=== PATIENT | male | born 1965 | race Caucasian/White ===

== ENCOUNTER 2022-08-04 09:45 | Outpatient (OUT) | payer OTHER, SELFPAY ==
[2022-08-04 14:40] LABS: Prostate Specific Antigen Dx 3.68 ng/mL (<=4.00)
== END 2022-08-04 09:46 ==
LOC: LAB 09:48
PROVIDERS: PCP Family Medicine; Visit Provider Urology
DX: C61 Malignant neoplasm of prostate (principal)
CPT/HCPCS: 36415; 84153

== ENCOUNTER 2022-12-31 12:25 | Outpatient (OUT) | payer OTHER, SELFPAY ==
--- NOTE | 2022-12-31 12:32 | ECG_ITS ---
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
[2022-12-31 13:12] LABS: Basophils Absolute Auto 0.1 10^3/uL (0.0-0.1); Basophils Percent Auto 0.7 % (0.2-2.0); Eosinophils Absolute Auto 0.4 10^3/uL (0.0-0.7); Eosinophils Percent Auto 5.4 % (0.9-7.0); Hematocrit 40.9 % (42.0-54.0); Hemoglobin 13.6 g/dL (14.0-18.0); Immature Granulocytes Abs Auto 0.05 10^3/uL (0.00-0.03); Immature Granulocytes Pct Auto 0.6 % (0.0-0.5); Lymphocytes Absolute Auto 1.3 10^3/uL (1.2-3.8); Lymphocytes Percent Auto 15.4 % (20.5-60.0); Mean Corpuscular HGB Conc 33.3 g/dL (29.9-35.2); Mean Corpuscular Hemoglobin 28.9 pg (25.9-34.0); Mean Platelet Volume 10.5 fL (9.5-13.5); Monocytes Absolute Auto 0.8 10^3/uL (0.3-0.8); Monocytes Percent Auto 9.4 % (1.7-12.0); Neutrophils Absolute Auto 5.5 10^3/uL (1.4-6.5); Neutrophils Percent Auto 68.5 % (43.0-75.0); Platelet Count 199 10^3/uL (150-450); Red Cell Distribution Width 12.7 % (11.0-15.0); White Blood Count 8.1 10^3/uL (4.0-11.0)
--- NOTE | 2022-12-31 13:16 | XR_ITS ---
The [address] [address] Patient Name: BLACK CASTRO MRN: [id number] date: 1965 Sex: M Assigned Patient Location: [facility] Current Patient Location: [facility] Accession/Order Number: [id number] Exam Date: 12/31/2022 13:10 Report Date: 12/31/2022 13:45 At the request of: LORNA OLIVIA Procedure: XR chest 2V EXAM: XR chest 2V HISTORY: Preop exam COMPARISON: None. TECHNIQUE: PA and lateral views of the chest. FINDINGS: The cardiomediastinal silhouette is normal. No focal consolidation is identified. There is no pneumothorax. No pleural effusion is noted. The osseous structures are intact. XR/XR chest 2V IMPRESSION: No acute cardiopulmonary process. Electronically authenticated by: KRIS CHAUHAN Date: 12/31/2022 13:45
[2022-12-31 13:18] LABS: Anion Gap 9.5; Calcium 9.3 mg/dL (8.5-10.1); Carbon Dioxide 32.3 mmol/L (21.0-32.0); Chloride 98 mmol/L (98-107); Estimated GFR (African America >60 (>=60); Estimated GFR (Non-African Ame >60 (>=60); Glucose 101 mg/dL (74-106); Potassium 3.8 mmol/L (3.5-5.1); Sodium 136 mmol/L (136-145)
--- NOTE | 2022-12-31 13:20 | PM.PRESUREVA ---
History of Present Illness History of Present Illness Chief complaint: elevated psa prostate cancer Narrative: Patient presents for preadmission testing. Patient reports a history of prostate cancer and elevated PSA. He does admit to nocturia and intermittent urgency with urination. He denies abdominal pain dysuria, hematuria, fever, or any other complaints. Review of Systems ROS Narrative REVIEW OF SYSTEMS: Negative except as stated in HPI, ten or more systems reviewed. Constitutional: No fever , chills, weakness ENT: No sore throat or epistaxis Cardiovascular: No edema, chest pain, palpitations, or activity intolerance Respiratory: No shortness of breath, cough, or wheezing Musculoskeletal: No joint pain or swelling Gastrointestinal: No abdominal pain, constipation, diarrhea, or vomiting Genitourinary: No dysuria or hematuria Neurological: No numbness, tingling, weakness, or headache Psychiatric: No mood changes PFSH PFSH Medical History (Updated 12/31/22 @ 13:19 by Sun Allred NP) Arthritis ?M19.90 - Unspecified osteoarthritis, unspecified site (ICD-10) Coronary artery disease ?I25.10 - Atherosclerotic heart disease of [place] coronary artery without angina pectoris (ICD-10) COVID-19 (~03/2021) ?U07.1 - COVID-19 (ICD-10) Elevated PSA ?R97.20 - Elevated prostate specific antigen [PSA] (ICD-10) High cholesterol ?E78.00 - Pure hypercholesterolemia, unspecified (ICD-10) Hydrocele ?N43.3 - Hydrocele, unspecified (ICD-10) Hypertension ?I10 - Essential (primary) hypertension (ICD-10) Myocardial infarction (~2010) ?I21.9 - Acute myocardial infarction, unspecified (ICD-10) Prostate cancer ?C61 - Malignant neoplasm of prostate (ICD-10) Surgical History (Updated 12/31/22 @ 13:19 by Sun Allred NP) H/O arthroscopy of shoulder (12/03/14) ?Z98.890 - Other specified postprocedural states (ICD-10) H/O cardiac catheterization ?Z98.890 - Other specified postprocedural states (ICD-10) H/O prostate biopsy (11/27/21) ?Z98.890 - Other specified postprocedural states (ICD-10) History of hernia repair ?Z98.890 - Other specified postprocedural states (ICD-10) ?Z87.19 - Personal history of other diseases of the digestive system (ICD-10) History of hydrocelectomy (09/13/14) ?Z98.890 - Other specified postprocedural states (ICD-10) S/P arterial stent ?Z95.9 - Presence of cardiac and vascular implant and graft, unspecified (ICD-10) Family History (Updated 12/31/22 @ 13:07 by Sun Allred NP) Other CAD (coronary artery disease) Dementia Family history of cancer Family history of myocardial infarction Social History (Updated 12/31/22 @ 13:19 by Sun Allred NP) Within the past year, how often did you have a drink containing alcohol: 2-3 times a week Smoking status: Never smoker Meds Home Medications and Allergies Home Medications Medication Instructions Recorded Confirmed Type aspirin 81 mg tablet,delayed 81 mg PO DAILY 12/31/22 12/31/22 History release (Adult Aspirin Regimen) atorvastatin 40 mg tablet 40 mg PO DAILY 12/31/22 12/31/22 History losartan 25 mg tablet 25 mg PO DAILY 12/31/22 12/31/22 History metoprolol tartrate 25 mg tablet 25 mg PO BID 12/31/22 12/31/22 History Allergies Allergy/AdvReac Type Severity Reaction Status Date / Time No Known Drug Allergies Allergy Verified 12/31/22 12:44 Exam Narrative Exam Narrative: Constitutional: Awake, alert, comfortable, well-appearing, nontoxic, interactive, vital signs as charted Head: Normocephalic, atraumatic Neck: Supple, normal appearance, normal range of motion, no meningeal signs, no lymphadenopathy Respiratory: No respiratory distress, breath sounds clear Cardiovascular: Regular rate and rhythm, strong and regular heart tones Abdomen: Nontender, normal bowel sounds, soft, no CVA tenderness Musculoskeletal: Normal gait, no swelling or edema Skin: No rashes or induration, no lesions, only visible skin inspected Neuro: No neurological deficits, normal sensation Psychiatric: Oriented ?3, normal affect Assessment and Plan Assessment and Plan (1) Elevated PSA: (2) Prostate cancer: Plan TRUS biopsy scheduled with Dr. Arvizu 01/14/2023.
[2022-12-31 13:27] LABS: INR 1.02; Partial Thromboplastin Time 29.7 sec (22.3-36.2); Prothrombin Time 10.8 sec (9.0-11.6)
== END 2022-12-31 12:26 | disposition home or self-care (01) ==
LOC: PST 12:26
PROVIDERS: PCP Family Medicine; Visit Provider Urology
DX: Z01.812 Encounter for preprocedural laboratory examination (principal); Z01.810 Encounter for preprocedural cardiovascular examination; C61 Malignant neoplasm of prostate; R97.20 Elevated prostate specific antigen [PSA]; E78.5 Hyperlipidemia, unspecified; I10 Essential (primary) hypertension; Z79.01 Long term (current) use of anticoagulants; I25.10 Atherosclerotic heart disease of native coronary artery without angina pectoris; I25.2 Old myocardial infarction
CPT/HCPCS: 71046; 80048; 85025; 85610; 85730; 93005; G0463

== ENCOUNTER 2023-01-14 06:59 | Day surgery (SDC) | payer OTHER, SELFPAY ==
[2022-12-31 13:04] VITALS: BP 130/80; PULSE 58; RESP 16; TEMP 36.2; O2SAT 97; BMI 27.6
[2023-01-14 07:13] VITALS: BP 131/75; PULSE 72; RESP 16; TEMP 36.2; O2SAT 95; BMI 27.0
[2023-01-14] MEDS: LACTATED RINGER'S SOLUTION 1,000 ML 50 ML IV (07:22)
[2023-01-14] MEDS: CEFAZOLIN SODIUM/DEXTROSE,ISO 2 GM/50 ML PIGGYBACK IV (07:23)
--- NOTE | 2023-01-14 07:42 | US_ITS ---
The [address] [address] Patient Name: BLACK CASTRO MRN: [id number] date: 1965 Sex: M Assigned Patient Location: [facility] Current Patient Location: Accession/Order Number: [id number] Exam Date: 01/14/2023 08:10 Report Date: 01/14/2023 09:48 At the request of: LORNA ARVIZU Procedure: US prostate EXAMINATION: US prostate HISTORY: Elevated PSA, TRUS BX COMPARISON: No relevant comparison available. TECHNIQUE: Ultrasound exam for the prostate with an endorectal transducer was performed utilizing real-time and color duplex Doppler sonography. FINDINGS: This biopsies was performed by Dr. Arvizu. I was not present. The prostate gland is mildly enlarged in size lobular contour measuring 4.1 x 2.8 x 4.7 cm. Multiple areas of punctate hyperechogenicity likely representing calcification A needle is seen traversing multiple portions of the prostate gland US/US prostate IMPRESSION: Images from ultrasound-guided prostate biopsy Electronically authenticated by: NELLIE CHEUNG Date: 01/14/2023 09:48
[2023-01-14] MEDS: GENTAMICIN SULFATE 120 MG in 0.9 % SODIUM CHLORIDE 100 ML 206 MG IV (08:06)
[2023-01-14] MEDS: LIDOCAINE 2% JELLY 20 ML UR (08:19)
[2023-01-14 08:28] VITALS: BP 91/51; PULSE 65; RESP 14; TEMP 36.2; O2SAT 95
--- NOTE | 2023-01-14 08:36 | P.URON_ITS ---
Urology Surgery Operative Note Operative Note Procedure Date: 01/14/23 Time Out Performed: yes Pre-op Diagnosis: history of prostate cancer; active surveillance. Rising PSA. Post-op Diagnosis: same as pre-op Procedures performed: #1. Transrectal ultrasound of the prostate. #2. Prostate needle biopsies Anesthesia: MAC and local Primary Surgeon: Jaspreet Arvizu Complications: none Estimated blood loss (mL): 5 Findings: no hypoechoic areas. Specimens: 16 satisfactory cores. Indications for Procedures: this gentleman has a history of prostate cancer [place] score of 3+3 = 6 in 3 cores. He has been in active surveillance. Over the last year his PSA has risen up to 3.6 from 1.76 a couple years ago. He now presents for repeat prostate ultrasound and biopsy. He has signed an informed consent for this procedure after all risks were explained. Some of these include bleeding, infection, sepsis and anesthesia to name a few. Detailed description of Procedure: patient was brought to the operating room and placed on the operating room table in the supine position. He was rotated in the left lateral decubitus position. Timeout was done by all parties in the room. We all agreed upon the patient's identification and the planned procedures for this patient. Mac anesthesia was then administered. 2 percent lidocaine jelly was passed per rectum. The u ltrasound probe was passed per rectum and the prostate was scanned in the transverse and longitudinal views. The volume was calculated to be 28 g. There were no hypoechoic areas nor any calcifications noted. While in the sagittal view we began taking biopsies from the left base going towards the apex. We divided it up into 4 levels and from each level took 2 biopsies. A similar maneuver was done on the right side. At the end of the procedure we had 16 satisfactory cores. The probe was removed. He was then transferred to PACU in stable condition. He has been instructed to continue his course of quinolone antibiotics.
[2023-01-14 08:43] VITALS: BP 98/59; PULSE 56; RESP 16; O2SAT 94
[2023-01-14 08:57] VITALS: BP 106/78; PULSE 65; RESP 16; O2SAT 96
== END 2023-01-14 08:58 | disposition home or self-care (01) ==
PROVIDERS: PCP Family Medicine; Visit Provider Urology
PROC: (CPT 55700; principal; 2023-01-14 08:00)
DX: R97.20 Elevated prostate specific antigen [PSA] (principal); C61 Malignant neoplasm of prostate; E78.5 Hyperlipidemia, unspecified; I10 Essential (primary) hypertension; Z79.01 Long term (current) use of anticoagulants; I25.10 Atherosclerotic heart disease of native coronary artery without angina pectoris; I25.2 Old myocardial infarction; Z95.5 Presence of coronary angioplasty implant and graft; Z79.82 Long term (current) use of aspirin; N40.1 Benign prostatic hyperplasia with lower urinary tract symptoms; N52.9 Male erectile dysfunction, unspecified; R35.1 Nocturia; R39.15 Urgency of urination; N39.43 Post-void dribbling; Z80.0 Family history of malignant neoplasm of digestive organs
CPT/HCPCS: 55700; 36415; 76872; 88305; 88344; J2704

== ENCOUNTER 2023-07-30 14:44 | Outpatient (OUT) | payer OTHER, SELFPAY ==
--- OUTSIDE RECORDS SUMMARY | 2023-07-30 14:59 | XMS_ITS ---
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 Cycling Instructor Name Role Phone Bladimir Chawla Primary Care Physician MD Jaspreet Arvizu Attending Provider MD Bladimir Chawla Primary Care Provider [phone] SHANNON, DR ANDERSON Admitting Unavailable MOALONA, DR ANDERSON Attending Unavailable HOY, DR DE LEON Primary Care Unavailable SHANNON, DR ANDERSON Consulting Unavailable ARVIZU, DR ROTHMAN Admitting Unavailable ARVIZU, DR ROTHMAN Attending Unavailable HOY, DR DE LEON Primary Care Unavailable CORWIN, DR ROTHMAN Consulting Unavailable CORWIN, DR ROTHMAN Admitting Unavailable ARVIZU, DR ROTHMAN Attending Unavailable HOY, DR DE LEON Primary Care Unavailable ARVIZU, DR ROTHMAN Consulting Unavailable CORWIN, DR ROTHMAN Admitting Unavailable ARVIZU, DR ROTHMAN Attending Unavailable HOY, DR DE LEON Primary Care Unavailable CORWIN, DR ROTHMAN Consulting Unavailable JONATAN, DR NELLIE Grande Consulting Unavailable ARVIZU, DR ROTHMAN Admitting Unavailable ARVIZU, DR ROTHMAN Attending Unavailable HOY, DR DE LEON Primary Care Unavailable ARVIZU, DR ROTHMAN Consulting Unavailable SHARP, CAITLIN Consulting Unavailable GEMBUS, MARTY Consulting Unavailable GLENDA ARANA Admitting Unavailable GLENDA ARANA Attending Unavailable DENTON, DR DE LEON Primary Care Unavailable SHANNON, JUSTIN Attending Unavailable GLENDA ARANA Attending Unavailable Jaspreet ARVIZU Attending Unavailable Jaspreet ARVIZU Attending Unavailable Jaspreet ARVIZU Attending Unavailable Jaspreet ARVIZU Attending Unavailable Jaspreet ARVIZU Attending Unavailable Encounters Encounter Date Encounter Type Care Provider Facility Start: 08-02-2023 ambulatory Jaspreet Raoi ty:[facility] Start: 01-29-2023 End: 01-30-2023 ambulatory Jaspreet ARVIZU Facility:[facility] Start: 01-29-2023 End: 01-29-2023 Patient encounter procedure Jaspreet ARVIUZ [facility] Start: 01-14-2023 End: 01-15-2023 ambulatory Jaspreet ARVIZU Facility:CD:[id number] Start: 01-06-2023 End: 01-06-2023 ambulatory [facility] Start: 12-08-2022 End: 01-06-2023 Pre-admission assessment Jaspreet ARVIZU [facility] Start: 08-10-2022 End: 08-11-2022 ambulatory Jaspreet ARVIZU Facility:[facility] Start: 04-10-2022 End: 04-11-2022 ambulatory Jaspreet ARVIZU Facility:[facility] Start: 04-10-2022 End: 04-10-2022 Patient encounter procedure Jaspreet ARVIZU [facility] Start: 04-06-2022 End: 04-07-[address] JASPREET ARVIZU Facility:[facility] Start: 01-30-2022 End: 01-31-[address] JUSTIN ORTEGA Facility:[facility] Start: 01-30-2022 End: 01-30-2022 ambulatory [facility] Start: 12-05-2021 End: 12-05-2021 Patient encounter procedure Jaspreet ARVIZU [facility] Start: 11-27-2021 Encounter for preprocedural cardiovascular examination DR JASPREET ARVIZU [facility] Start: 11-27-2021 Encounter for preprocedural laboratory examination DR JASPREET ARVIZU [facility] Start: 11-27-2021 Encounter for preprocedural respiratory examination DR JASPREET ARVIZU [facility] Start: 11-27-2021 End: 11-27-[address] JASPREET ARVIZU Facility:[facility] Start: 11-25-2021 End: 11-26-[address] JASPREET ARVIZU Facility:[facility] Start: 11-25-2021 End: 11-26-2021 Encounter for preprocedural laboratory examination DR JASPREET ARVIZU Facility:[facility] Start: 10-29-2021 End: 11-26-2021 Pre-admission assessment Jaspreet ARVIZU [facility] Start: 10-22-2021 End: 10-22-2021 Patient encounter procedure MD Jaspreet Arvizu Work Phone: [facility] [place] Start: 10-03-2021 End: 10-03-2021 Patient encounter procedure Jaspreet ARVIZU [facility] Start: 09-29-2021 End: 09-30-[address] JASPREET ARVIZU Facility:[facility] Start: 09-12-2021 ambulatory GLENDA ARANA Facility :[facility] Immunizations Immunization Date Immunization Notes Care Provider Fa maggi 07-02-2020 SARS-CoV-2 (COVID-19 ) Ad26 vaccine, recombinant Jaspreet ARVIZU [facility] NEGATED: Highlighted row has not occurred!04-22-2020 influenza virus vaccine, unspecified formulation Jaspreet ARVIZU [facility] Medications Current Medications Medication Drug Class(es) Dates Sig (Normalized) Sig (Original) acetaminophen 325 mg / HYDROcodone bitartrate 7.5 mg oral tablet (3 sources) Opioid Agonist Start: 12-08-2022 take 1 tablet by mouth once Bowden 325 mg-7.5 mg oral tablet 1 tab(s), Oral, Once, 1 tab(s), Refill(s) 0, Take 1 hour prior to procedure, [facility], 184, cm, 08/10/22 11:29:00 EDT, Height/Length Dosing, 88, kg, 08/10/22 11:29:00 EDT, Weight Dosing Start Date: 12/08/22 Status: Ordered Start: 10-30-2021 take 1 tablet by mouth once No rco 325 mg-7.5 mg oral tablet 1 tab(s), Oral, Once, 1 tab(s), Refill(s) 0, Take 1 hour prior to procedure. Don't drive or operate machinery while taking., [facility], 184, cm, 10/03/21 10:02:00 EDT, Height/Length Dosing, 84, kg, 10/03/21 10:02:00 EDT, Weight Dosing Start Date: 10/30/21 Status: Ordered Aspirin (6 sources) Platelet Aggregation Inhibitor, Nonsteroidal Anti-inflammatory Drug Start: 04-19-2019 aspirin 81 mg, Ch ewed, Daily, Refills(s) 0, Blood Thinner Start Date: 04/19/19 Status: Ordered atorvastatin (7 sources) HMG-CoA Reductase Inhibitor Start: 01-29-2023 AT ORVASTATIN CALCIUM 40 MG TABLET ATORVASTATIN CALCIUM 40 MG TABLET Start Date: 01/29/23 Status: Ordered Start: 04-19-2019 take 40 mg by mouth once daily Lipitor 40 mg, Oral, Daily, Refills(s) 0, High cholesterol Start Date: 04/19/19 Status: Ordered Bee Pollen (6 sources) Start: 04-15-2020 take 1 capsule by mouth once daily Bee Pollen Bee Pollen, 1 capsule, Oral, Daily, Prophylaxis Start Date: 04/15/20 Status: Ordered losartan potassium 25 mg oral tablet (6 sources) Angiotensin 2 Receptor Nagi Start: 10-03-2021 losartan 25 mg Tab Refills(s) 0 Start Date: 10/03/21 Status: Ordered Metoprolol (9 sources) beta-Adrenergic Nagi Start: 04-10-2022 METOPROLOL TARTRATE 25 MG TABLET METOPROLOL TARTRATE 25 MG TABLET Start Date: 04/10/22 Status: Ordered Start: 04-19-2019 take 25 mg by mouth twice philip y Lopressor 25 mg, Oral, BID, Refills(s) 0, High blood pressure Start Date: 04/19/19 Status: Ordered Misc Medication (3 sources) Start: 04-10-2022 Misc Medication Start Date: 04/10/22 Status: Ordered Multivitamin, Therapeutic w/ Minerals (6 sources) Start: 04-15-2020 take 1 tablet by mouth once daily Multivitamin, Therapeutic w/ Minerals 1 tab(s), Oral, Daily, Prophylaxis Start Date: 04/15/20 Status: Ordered nitroglycerin 0.4 mg sublingual tablet (1 source) Nitrate Vasodilator Start: 01-29-2023 nitroglycerin 0.4 mg sublingual Tab 0.4 mg = 1 tab(s), SubLingual, q5min, PRN for chest pain, # 100 tab(s), Refills(s) 0 Start Date: 01/29/23 Status: Ordered Shark cartilage extract (6 sources) Start: 04-15-2020 take 1 tablet by mouth once daily Shark Cartilage Shark Cartilage, 1 Tablet, Oral, Daily, Prophylaxis Start Date: 04/15/20 Status: Ordered Vitamin C 500 mg Tab (6 sources) Start: 04-15-2020 take 1 tablet by mouth once daily Vitamin C 500 mg Tab 500 mg = 1 tab(s), Oral, Daily, Prophylaxis Start Date: 04/15/20 Status: Ordered zinc gluconate 50 mg oral tablet (6 sources) Start: 04-15-2020 take 1 tablet by mouth once daily zinc gluconate 50 mg oral tablet = 1 tab(s), Oral, Daily, Prophylaxis Start Date: 04/15/20 Status: Ordered Completed/Discontinued Medications Medication Drug Class(es) Dates Sig (Normalized) Sig (Original) tadalafil 10 mg oral tablet (6 sources) Phosphodiesterase 5 Inhibitor Start: 10-20-2022 take 2 tablets by mouth every twenty-four hours tadalafil 10 mg Tab 10 mg = 1 tab(s), Oral, As Directed, PRN for erectile dysfunction, Take 1 tab by mouth 1 hour prior to sexual activity as needed. Don't exceed 2 tabs in a 24 hour period., # 30 tab(s), Refills(s) 5, Pharmacy: [id number], 184, cm, 08/10/22 11:29:00 EDT, Height/Length Dosing, 88, kg, 08/10/22 11:29:00 EDT, Weight Dosing Start Date: 10/20/22 Status: Ordered Start: 12-09-2021 take 2 tablets by mo [facility] every twenty-four hours tadalafil 10 mg Tab 10 mg = 1 tab(s), Oral, As Directed, PRN for erectile dysfunction, Take 1 tab by mouth 1 hour prior to sexual activity as needed. Don't exceed 2 tabs in a 24 hour period., # 30 tab(s), Refills(s) 5, Pharmacy: [id number], 184, , 12/05/21... Start Date: 12/09/21 Status: Ordered Start: 09-23-2021 take 2 tablets by mo uth every twenty-four hours tadalafil 10 mg Tab 10 mg = 1 tab(s), Oral, As Directed, PRN for erectile dysfunction, Take 1 tab by mouth 1 hour prior to sexual activity as needed. Don't exceed 2 tabs in a 24 hour period., # 30 tab(s), Refills(s) 5, Pharmacy: [id number], 184, , 04/22/20... Start Date: 09/23/21 Status: Ordered Payers Date Payer Category Payer Unknown [id number] 2.16.84 [id number] 1965 Unknown [id number] 2.16.84 [id number] 1965 Unknown [id number] 2.16.84 [id number] 1965 Unknown [id number] 2.16.84 [id number] 1965 Unknown [id number] 2.16.84 [id number] 1965 Unknown [id number] 2.16.84 [id number] 1965 Unknown [id number] 2.16.8 [id number] 1965 Unknown [id number] 2.16.8 [id number] 1965 Unknown [id number] 2.16.8 [id number] 1965 Unknown [id number] 2.16.8 [id number] 1965 Unknown [id number] 2.16.8 [id number] 1961 Self-pay 1961 Unknown [id number] Problems Active Problems Problem Classification Problem Date Documented Da te Episodic/Chronic Acute myocardial infarction (6 sources) Myocardial infarction 04-19-2019 Chronic Cancer of prostate (11 sources) Malignant neoplasm of prostate; Translations: [Malignant tumor of prostate] Onset: 12-05-2021 Chronic Cardiac dysrhythmias (2 sources) Palpitations; Translations: [Palpitations] Onset: 01-06-2023 Episodic Coronary atherosclerosis and other heart disease (10 sources) Coronary arteriosclerosis; Translations: [Old myocardial infarction] Onset: 12-03-2021 01-31-2020 Chronic Disorders of lipid metabolism (13 sources) Hyperlipidemia; Translations: [Mixed hyperlipidemia] Onset: 10-22-2021 04-19-2019 Chronic Essential hypertension (9 sources) Hypertensive disorder; Translations: [Essential (primary) hypertension] Onset: 12-03-2021 04-19-2019 Chronic Genitourinary symptoms and ill-defined conditions (7 sources) Post-micturition incontinence ; Translations: [Post-void dribbling] Onset: 12-03-2021 04-24-2019 Chronic Genitourinary symptoms and ill-defined conditions (20 sources) Increased frequency of urination; Translations: [Nocturia] Onset: 12-03-2021 04-24-2019 Episodic Hyperplasia of prostate (20 sources) Benign prostatic hypertrophy with outflow obstruction; Translations: [Benign prostatic hyperplasia with lower urinary tract symptoms] Onset: 09-29-2021 Chronic Hypertension with complications and secondary hypertension (2 sources) Hypertensive heart disease without heart failure; Translations: [Hypertensive heart disease without heart failure] Onset: 01-06-2023 Chronic Other male genital disorders (5 sources) Male erectile dysfunction, unspecified; Translations: [Erectile dysfunction] Onset: 10-03-2021 Chronic Other male genital disorders (6 sources) Impotence 04-24-2019 Chronic Other male genital disorders (6 sources) Disorder of male genital organ 04-19-2019 Episodic Other screening for suspected conditions (not mental disorders or infectious disease) (11 sources) Raised prostate specific antigen; Translations: [Elevated prostate specific antigen [PSA]] Onset: 10-03-2021 Episodic Residual codes; unclassified (6 sources) Family history of cancer of colon 03-29-2020 Episodic Unclassified (1 source) CONTACT W/AND (SUSP) EXPOS COVID-19; Translations: [CONTACT W/AND (SUSP) EXPOS COVID-19] Onset: 11-27-2021 Past or Other Problems Problem Classification Problem Date Documented Da te Episodic/Chronic Coronary atherosclerosis and other heart disease (3 sources) Presence of coronary angioplasty implant and graft; Translations: [PRESENCE COR ANGPLSTY IMPLANT AND GRAFT] Onset: 12-03-2021 Episodic Other aftercare (1 source) 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; Translations: [FCI CURRNT USE ANTICOAGULANTS] Onset: 12-03-2021 Episodic Other aftercare (1 source) 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; Translations: [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] Onset: 12-03-2021 Episodic Other aftercare (1 source) Other nursing home (current) drug therapy; Translations: [OTH FCI CURRENT DRUG THERAPY] Onset: 12-03-2021 Episodic Other male genital disorders (1 source) Disorder of prostate, unspecified; Translations: [DISORDER OF PROSTATE UNSPECIFIED] Onset: 12-03-2021 Episodic Procedures Date Procedure Procedure Detail Performing Clinician Start: 01-14-2023 Transrectal biopsy o f prostate using ultrasound guidance Jaspreet ARVIZU Start: 04-06-[address] JUSTIN ORTEGA Comment on above: Performed By: #### P SAD #### [facility] [address] [place] [address] Dr. Betzy Olivera Start: 11-27-2021 MRI-US fusion guided transperineal biopsy of prostate Jaspreet ARVIZU Start: 11-27-2021 Ultrasonography by transrectal approach Jaspreet ARVIZU Start: 10-22-2021 MR prostate wo/w con MD Jaspreet Arvizu Work Phone: Start: 09-29-[address] JUSTIN ORTEGA Comment on above: Performed By: #### P SAD #### [facility] [address] [place] [address] Dr. Betzy Olivera Start: 04-15-2020 Colonoscopy Jaspreet DEAN Comment on above: removal of 2 colon p olyps Start: 12-03-2014 Repair of musculoten dinous cuff of shoulder Jaspreet ARVIZU Comment on above: right Start: 09-13-2014 Hydrocelectomy Jaspreet ARVIZU Comment on above: left Start: 09-13-2014 Vasectomy Jaspreet DEAN Start: 04-11-2008 Repair of left ingui nal hernia Jaspreet ARVIZU Placement of stent i n cardiac conduit Jaspreet ARVIZU Results Test Name Value Interpretation Reference Range Facil ity Ambulatory Visit Summaryon 1 04-01-2022 Ambulatory Visit Summary BLACK YATES :1965 Visit Date:01/29/2023 Ambulatory Visit Instructions Your Diagnosis Prostate cancer BPH with urinary obstruction Impotence Your Care Team Attending Physician - CORWIN GUILLORY, Jaspreet Bhatt Primary Care Physician - Bladimir Chawla MD This Is Your Medications List Contact prescribing physician if questions or concerns Misc Prescription (ATORVASTATIN CALCIUM 40 MG TABLET) Misc Prescription (METOPROLOL TARTRATE 25 MG TABLET) Non-Formulary Medication (Bee Pollen) Non-Formulary Medication (Misc Medication) Non-Formulary Medication (Shark Cartilage) ascorbic acid (Vitamin C 500 mg Tab) aspirin atorvastatin (Lipitor) losartan (losartan 25 mg Tab) metoprolol (Lopressor) multivitamin with minerals (Multivitamin, Therapeutic w/ Minerals) nitroglycerin (nitroglycerin 0.4 mg sublingual Tab) tadalafil (tadalafil 10 mg Tab) zinc gluconate (zinc gluconate 50 mg oral tablet) Procedures Performed Transrectal biopsy of prostate using ultrasound guidance (01/14/2023), MRI-US fusion guided transperineal biopsy of prostate (11/27/2021), Colonoscopy (04/15/2020), Rotator cuff repair (12/03/2014), Hydrocelectomy (09/13/2014), Vasectomy (09/13/2014), Repair of left inguinal hernia (04/11/2008), Placement of stent in cardiac conduit. Discharge Vitals Heart Rate (Peripheral) 80 Respiratory Rate 16 Blood Pressure 127/72 Height 184 cm Height 72 in Weight 91 kg Weight 200.2 lb BMI 26.88 What to do next You Need to Schedule the Following Appointments Follow Up with CORWIN GUILLORY, SACHI Ac When: Where: [address] [place] [address]- Medications What How Much When Instructions Unchanged ascorbic acid (Vitamin C 500 mg Tab) 1 Tablets By Mouth Every day Contact prescribing physician if questions or concerns Unchanged aspirin 81 Milligram Chewed Every day Contact prescribing physician if questions or concerns Unchanged atorvastatin (Lipitor) 40 Milligram By Mouth Every day Contact prescribing physician if questions or concerns Unchanged losartan (losartan 25 mg Tab) Contact prescribing physician if questions or concerns Unchanged metoprolol (Lopressor) 25 Milligram By Mouth 2 times a day Contact prescribing physician if questions or concerns Unchanged Misc Prescription (ATORVASTATIN CALCIUM 40 MG TABLET) 0 Contact prescribing physician if questions or concerns Unchanged Misc Prescription (METOPROLOL TARTRATE 25 MG TABLET) 0 Contact prescribing physician if questions or concerns Unchanged multivitamin with minerals (Multivitamin, Therapeutic w/ Minerals) 1 Tablets By Mouth Every day Contact prescribing physician if questions or concerns Unchanged nitroglycerin (nitroglycerin 0.4 mg sublingual Tab) 1 Tablets Sublingual Every 5 minutes as needed for for chest pain Contact prescribing physician if questions or concerns Unchanged Non-Formulary Medication (Bee Pollen) 1 capsule By Mouth Every day Prophylaxis Contact prescribing physician if questions or concerns Unchanged Non-Formulary Medication (Misc Medication) Contact prescribing physician if questions or concerns Unchanged Non-Formulary Medication (Shark Cartilage) 1 Tablet By Mouth Every day Prophylaxis Contact prescribing physician if questions or concerns Unchanged tadalafil (tadalafil 10 mg Tab) 1 Tablets By Mouth As Directed as needed for for erectile dysfunction Take 1 tab by mouth 1 hour prior to sexual activity as needed. Don't exceed 2 tabs in a 24 hour period. Contact prescribing physician if questions or concerns Unchanged zinc gluconate (zinc gluconate 50 mg oral tablet) 1 Tablets By Mouth Every day Contact prescribing physician if questions or concerns Allergies No Known Allergies Problems Ongoing - Any problem that you are currently receiving treatment for. BPH with urinary obstruction CAD (coronary artery disease) Elevated PSA Family history of colon cancer requiring screening colonoscopy Hydrocele Hyperlipidemia Hypertension Impotence Myocardial infarct Nocturia Post-void dribbling Prostate cancer Urinary frequency Weak urinary stream Patient Survey You may receive a survey via text or e-mail asking about your office visit. Please share your experience with us by completing your survey. We appreciate your feedback and thank you for choosing us for your care. Education Materials Prostate Cancer The prostate is a small gland that produces fluid that makes up semen (seminal fluid). It is located below the bladder in men, in front of the rectum. Prostate cancer is the abnormal growth of cells in the prostate gland. What are the causes? The exact cause of this condition is not known. What increases the risk? You are more likely to develop this condition if: ? You are 65 years of age or older. ? You have a family history of prostate cancer. ? You have a family history of breast and ovarian cancer (more content not included)... Normal [facility] Patient Educationon 01-30-20 Patient Education Oncology Prostate Cancer The prostate is a small gland that produces fluid that makes up semen (seminal fluid). It is located below the bladder in men, in front of the rectum. Prostate cancer is the abnormal growth of cells in the prostate gland. What are the causes? The exact cause of this condition is not known. What increases the risk? You are more likely to develop this condition if: ? You are 65 years of age or older. ? You have a family history of prostate cancer. ? You have a family history of breast and ovarian cancer. ? You have genes that are passed from parent to child (inherited), such as BRCA1 and BRCA2. ? You have Narayan syndrome. men and men of descent are diagnosed with prostate cancer at higher rates than other men. The reasons for this are not well understood and are likely due to a combination of genetic and environmental factors. What are the signs or symptoms? Symptoms of this condition include: ? Problems with urination. This may include: ? A weak or interrupted flow of urine. ? Trouble starting or stopping urination. ? Trouble emptying the bladder all the way. ? The need to urinate more often, especially at night. ? Blood in urine or semen. ? Persistent pain or discomfort in the lower back, lower abdomen, or hips. ? Trouble getting an erection. ? Weakness or numbness in the legs or feet. How is this diagnosed? This condition can be diagnosed with: ? A digital rectal exam. For this exam, a health care provider inserts a gloved finger into the rectum to feel the prostate gland. ? A blood test called a prostate-specific antigen (PSA) test. ? A procedure in which a sample of tissue is taken from the prostate and checked under a microscope (prostate biopsy). ? An imaging test called transrectal ultrasonography. Once the condition is diagnosed, tests will be done to determine how far the cancer has spread. This is called staging the cancer. Staging may involve imaging tests, such as a bone scan, CT scan, PET scan, or MRI. Stages of prostate cancer The stages of prostate cancer are as follows: ? Stage 1 (I). At this stage, the cancer is found in the prostate only. The cancer is not visible on imaging tests, and it is usually found by accident, such as during prostate surgery. ? Stage 2 (II). At this stage, the cancer is more advanced than it is in stage 1, but the cancer has not spread outside the prostate. ? Stage 3 (III). At this stage, the cancer has spread beyond the outer layer of the prostate to nearby tissues. The cancer may be found in the seminal vesicles, which are near the bladder and the prostate. ? Stage 4 (IV). At this stage, the cancer has spread to other parts of the body, such as the lymph nodes, bones, bladder, rectum, liver, or lungs. Prostate cancer grading Prostate cancer is also graded according to how the cancer cells look under a microscope. This is called the Birchleaf score and the total score can range from 6?10, indicating how likely it is that the cancer will spread (metastasize) to other parts of the body. The higher the score, the greater the likelihood that the cancer will spread. ? Birchleaf 6 or lower: This indicates that the cancer cells look similar to normal prostate cells (well differentiated). ? Birchleaf 7: This indicates that the cancer cells look somewhat similar to normal prostate cells (moderately differentiated). ? Zoya 8, 9, or 10: This indicates that the cancer cells look very different than normal prostate cells (poorly differentiated). How is this treated? Treatment for this condition depends on several factors, including the stage of the cancer, your age, personal preferences, and your overall health. Talk with your health care provider about treatment options that are recommended for you. Common treatments include: ? Observation for early stage prostate cancer (active surveillance). This involves having exams, blood tests, and in some cases, more biopsies. For some men, this is the only treatment needed. ? Surgery. Types of surgeries include: ? Open surgery (radical prostatectomy). In this surgery, a larger incision is made to remove the prostate. ? A laparoscopic radical prostatectomy. This is a surgery to remove the prostate and lymph nodes through several small incisions. It is often referred to as a minimally invasive surgery. ? A robotic radical prostatectomy. This is laparoscopic surgery to remove the prostate and lymph nodes with the help of robotic arms that are controlled by the surgeon. ? Cryoablation. This is surgery to freeze and destroy cancer cells. ? Radiation treatment. Types of radiation treatment include: ? External beam radiation. This type aims beams of radiation from outside the body at the prostate to destroy cancerous cells. ? Brachytherapy. This type uses radioactive needles, seeds, wires, or tubes that are implanted into the prostate gland. Like external be (more content not included)... Normal [facility] Urology Office/Clinic Noteon 01-29-2023 Urology Office/Clinic Note Chief Complaint S/P TRUS/Bx HPI Staff S/P TRUS/Bx DX: Prostate Cancer, BPH & Impotence ACTIVE SURVEILLANCE *Tadalafil 10mg PRN therapy. Blood in urine & semen a few days post op, Has since then subsided. Denies current pain/burning and visible blood. History of Present Illness Tests reviewed: reviewed path report. I have reviewed the previous health record information and history for this patient from Dr. Arvizu. I have reviewed and verified the staff HPI to be accurate for this encounter. There have been no associated fever, chills, flank pain, or blood in the urine. Denies any urinary infections since last encounter. Review of Systems PHQ Score Initial Depression Screen Score: 0 SCORE ROS - Provider Constitutional: denies weight loss, denies hot flashes. Eyes: denies eye problems. Gastrointestinal: denies nausea, denies vomiting. Cardiovascular: denies chest pain or angina. Integumentary: no dryness Musculoskeletal: denies musculoskeletal symptoms. ENMT: denies otolaryngeal symptoms. Respiratory: no shortness of breath. Heme/Lymph: denies easy bleeding tendency, denies easy bruising tendency. Psychiatric: no confusion, no anxiety. Genitourinary: See HPI. Physical Exam Vitals & Measurements HR: 80(Peripheral) RR: 16 BP: 127/72 HT: 72 in HT: 184 cm WT: 91 kg WT: 200.2 lb BMI: 26.88 General Appearance: alert, no distress, well nourished, well developed male. Genitourinary: normal scrotum, normal testes, normal urethra, normal epididymis, normal vas deferens/spermatic cord. Flank Pain: none. Bladder: nonpalpable. Assessment/Plan 1. Prostate cancer (C61: Malignant neoplasm of prostate) ACTIVE SURVEILANCE. PSA: 05/22/20 - 1.76 09/29/21 - 2.38 04/06/22 - 3.26 08/04/22 - 3.68 MRI of prostate 10/22/21 - PI RADS 4, no evidence of lymphadenopathy. MRI fusion bx 11/27/21 - Path report shows Birchleaf 6 (3+3) in 3 cores, 20% of tissue or less involved. GG1. S/p TRUS/bx 01/14/23 - negative for malignancy. No signs of progression. EVELINA 08/10/22: 35 gm, no nodules. Blood in urine & semen a few days post op. States hematuria resolved, still noticing small amount of hematospermia but believes it is clearing up. -Will continue active surveillance -Follow up in 6 months w/ PSA and EVELINA 2. BPH with urinary obstruction (N40.1: Benign prostatic hyperplasia with lower urinary tract symptoms) Not taking any BPH meds. Frequency with fluid intake. Voids q1hr, has always been like this with fluid intake. Nocturia 1x/night, increased if he drank beer before bed. 3. Impotence (N52.9: Male erectile dysfunction, unspecified) Tadalafil 10 mg prn. Follow-up With When Contact Information CORWIN GUILLORY, Jaspreet Bhatt, URL [address] [place] [address]- Additional Instructions: 6 mos w/ PSA and EVELINA Patient Education Prostate Cancer I, Lizette Heller, personally scribed for Dr. Arvizu on 01/29/2023 12:43:44. . Documentation recorded by the scribe, Lizette Heller, accurately reflects the services(s) I performed and decisions made by me. Authenticated by Dr. Arvizu on 01/29/2023 12:47:44. Problem List/Past Medical History Ongoing BPH with urinary obstruction CAD (coronary artery disease) Elevated PSA Family history of colon cancer requiring screening colonoscopy Hydrocele Hyperlipidemia Hypertension Impotence Myocardial infarct Nocturia Post-void dribbling Prostate cancer Urinary frequency Weak urinary stream Historical No qualifying data Procedure/Surgical History Transrectal biopsy of prostate using ultrasound guidance (01/14/2023), MRI-US fusion guided transperineal biopsy of prostate (11/27/2021), Colonoscopy (04/15/2020), Rotator cuff repair (12/03/2014), Hydrocelectomy (09/13/2014), Vasectomy (09/13/2014), Repair of left inguinal hernia (04/11/2008), Placement of stent in cardiac conduit. Medications aspirin, 81 mg, Chewed, Daily ATORVASTATIN CALCIUM 40 MG TABLET, 0 Bee Pollen, 1 capsule, Oral, Daily Lipitor, 40 mg, Oral, Daily Lopressor, 25 mg, Oral, BID losartan 25 mg Tab METOPROLOL TARTRATE 25 MG TABLET, 0 Misc Medication Multivitamin, Therapeutic w/ Minerals, 1 tab(s), Oral, Daily nitroglycerin 0.4 mg sublingual Tab, 0.4 mg= 1 tab(s), SubLingual, q5min, PRN Shark Cartilage, 1 Tablet, Oral, Daily tadalafil 10 mg Tab, 10 mg= 1 tab(s), Oral, As Directed, PRN, 5 refills Vitamin C 500 mg Tab, 500 mg= 1 tab(s), Oral, Daily zinc gluconate 50 mg oral tablet, 1 tab(s), Oral, Daily Allergies No Known Allergies Social History Alcohol Current, Beer, 1-2 times per month, 12/05/2021 Tobacco Never (less than 100 in lifetime) Tobacco Use:. Never Smokeless Tobacco Use:. Household tobacco concerns: No. Yes, 01/29/2023 Family History Primary malignant neoplasm of colon: Father and Brother. Immunizations Vaccine Date Status Comments SARS-CoV-2 (COVID-19) Ad26 vacci (more content not included)... [facility] Comment on above: Result Comment: Elec tronically Signed By: Jaspreet ARVIZU MD\.br\Date and Time Signed: 01/29/23 12:47 EST\.br\Electronically Co-Signed By: Lizette Heller.br\Date and Time Co-Signed: 01/29/23 12:45 EST Pathology Noteon 01-26-2023 Pathology Note [id number]# 1.00TIFF [facility] RAD - Ultrasound Reporton RAD - Ultrasound Report [id number]#1. 00TIFF [facility] Operative Reporton Operative Report [id number]#1. 00TIFF [facility] Formson 01-07-2023 Forms [id number]#1 .00TIFF [facility] Office Visiton 01-06-2023 Follow-up visit [id number] Black Yates 1965 M Date Provider Department Center 01/06/2023 GLENDA SHAFER Family History Family history unknown: Yes Level of Service:48220 DC OFFICE/OUTPATIENT ESTABLISHED MOD MDM 30-39 MIN Reason for Visit and Comments: Pre-op Exam [615999] Coronary Artery Disease [187] Hypertension [335733] Hyperlipidemia [182] Normal [facility] RAD - MISCon 01-04-2023 RAD - MISC [id number]#1 .00TIFF [facility] RAD - MISC [id number]#1 .00TIFF [facility] Consent for Procedure/Surger yon 12-10-2022 Consent for Procedure/Surgery [id number]#1 .00TIFF [facility] Formson 12-10-2022 Forms [id number]#1 .00TIFF [facility] Physician Orderon 12-10-2022 Physician Order [id number]#1 .00TIFF [facility] Lab Reportson 08-17-2022 Lab Reports [id number]#1 .00CD:127 [facility] Ambulatory Visit Summaryon 0 08-10-2022 Ambulatory Visit Summary BLACK YATES :1965 Visit Date:08/10/2022 Ambulatory Visit Instructions Your Diagnosis Prostate cancer BPH with urinary obstruction Impotence Tests Performed Urnls Dip Stick Auto w/o Microscopy POC 29037 Your Care Team Attending Physician - CORWIN GUILLORY, Jaspreet Bhatt Primary Care Physician - [place] GUILLORY, Bladimir This Is Your Medications List tadalafil (tadalafil 10 mg Tab) Contact prescribing physician if questions or concerns Misc Prescription (METOPROLOL TARTRATE 25 MG TABLET) Non-Formulary Medication (Bee Pollen) Non-Formulary Medication (Misc Medication) Non-Formulary Medication (Shark Cartilage) ascorbic acid (Vitamin C 500 mg Tab) aspirin atorvastatin (Lipitor) losartan (losartan 25 mg Tab) metoprolol (Lopressor) multivitamin with minerals (Multivitamin, Therapeutic w/ Minerals) zinc gluconate (zinc gluconate 50 mg oral tablet) Procedures Performed MRI-US fusion guided transperineal biopsy of prostate (11/27/2021), Colonoscopy (04/15/2020), Rotator cuff repair (12/03/2014), Hydrocelectomy (09/13/2014), Vasectomy (09/13/2014), Repair of left inguinal hernia (04/11/2008), Placement of stent in cardiac conduit. Discharge Vitals Heart Rate (Peripheral) 90 Respiratory Rate 16 Blood Pressure 138/84 Height 184 cm Height 72 in Weight 88 kg Weight 193.6 lb BMI 25.99 What to do next You Need to Schedule the Following Appointments Follow Up with CORWIN GUILLORY, SACHI Ac When: Where: [facility] [address], [place] [address]- Medications What How Much When Instructions Unchanged tadalafil (tadalafil 10 mg Tab) 1 Tablets By Mouth As Directed as needed for for erectile dysfunction Take 1 tab by mouth 1 hour prior to sexual activity as needed. Don't exceed 2 tabs in a 24 hour period. Unchanged ascorbic acid (Vitamin C 500 mg Tab) 1 Tablets By Mouth Every day Contact prescribing physician if questions or concerns Unchanged aspirin 81 Milligram Chewed Every day Contact prescribing physician if questions or concerns Unchanged atorvastatin (Lipitor) 40 Milligram By Mouth Every day Contact prescribing physician if questions or concerns Unchanged losartan (losartan 25 mg Tab) Contact prescribing physician if questions or concerns Unchanged metoprolol (Lopressor) 25 Milligram By Mouth 2 times a day Contact prescribing physician if questions or concerns Unchanged Misc Prescription (METOPROLOL TARTRATE 25 MG TABLET) 0 Contact prescribing physician if questions or concerns Unchanged multivitamin with minerals (Multivitamin, Therapeutic w/ Minerals) 1 Tablets By Mouth Every day Contact prescribing physician if questions or concerns Unchanged Non-Formulary Medication (Bee Pollen) 1 capsule By Mouth Every day Prophylaxis Contact prescribing physician if questions or concerns Unchanged Non-Formulary Medication (Misc Medication) Contact prescribing physician if questions or concerns Unchanged Non-Formulary Medication (Shark Cartilage) 1 Tablet By Mouth Every day Prophylaxis Contact prescribing physician if questions or concerns Unchanged zinc gluconate (zinc gluconate 50 mg oral tablet) 1 Tablets By Mouth Every day Contact prescribing physician if questions or concerns Test Results Urnls Dip Stick Auto w/o Microscopy POC 22792 (08/10/2022) Bilirubin Urine Dipstick - Negative Blood Urine Dipstick - Negative Glucose Urine Dipstick - Negative Ketones Urine Dipstick - Negative Leukocytes Urine Dipstick - Negative Nitrite Urine Dipstick - Negative Protein Urine Dipstick - Negative Specific [place] Urine Dipstick - 1.010 Urine Appearance Urine Dipstick - Clear Urine Color Urine Dipstick - Yellow Urobilinogen Urine Dipstick - Normal 0.2-1 EU/dl pH Urine Dipstick - 6 Allergies No Known Allergies Problems Ongoing - Any problem that you are currently receiving treatment for. BPH with urinary obstruction CAD (coronary artery disease) Elevated PSA Family history of colon cancer requiring screening colonoscopy Hydrocele Hyperlipidemia Hypertension Impotence Myocardial infarct Nocturia Post-void dribbling Prostate cancer Urinary frequency Weak urinary stream Education Materials Prostate Cancer The prostate is a small gland that produces fluid that makes up semen (seminal fluid). It is located below the bladder in men, in front of the rectum. Prostate cancer is the abnormal growth of cells in the prostate gland. What are the causes? The exact cause of this condition is not known. What increases the risk? You are more likely to develop this condition if: ? You are 65 years of age or older. ? You have a family history of prostate cancer. ? You have a family history of breast and ovarian cancer. ? You have genes that are passed from parent to child (inherited), such as BRCA1 and BRCA2. ? You have Narayan syndrome. men and men of (more content not included)... Normal [facility] Patient Educationon 08-11-19 23 Patient Education Oncology Prostate Cancer The prostate is a small gland that produces fluid that makes up semen (seminal fluid). It is located below the bladder in men, in front of the rectum. Prostate cancer is the abnormal growth of cells in the prostate gland. What are the causes? The exact cause of this condition is not known. What increases the risk? You are more likely to develop this condition if: ? You are 65 years of age or older. ? You have a family history of prostate cancer. ? You have a family history of breast and ovarian cancer. ? You have genes that are passed from parent to child (inherited), such as BRCA1 and BRCA2. ? You have Narayan syndrome. men and men of descent are diagnosed with prostate cancer at higher rates than other men. The reasons for this are not well understood and are likely due to a combination of genetic and environmental factors. What are the signs or symptoms? Symptoms of this condition include: ? Problems with urination. This may include: ? A weak or interrupted flow of urine. ? Trouble starting or stopping urination. ? Trouble emptying the bladder all the way. ? The need to urinate more often, especially at night. ? Blood in urine or semen. ? Persistent pain or discomfort in the lower back, lower abdomen, or hips. ? Trouble getting an erection. ? Weakness or numbness in the legs or feet. How is this diagnosed? This condition can be diagnosed with: ? A digital rectal exam. For this exam, a health care provider inserts a gloved finger into the rectum to feel the prostate gland. ? A blood test called a prostate-specific antigen (PSA) test. ? A procedure in which a sample of tissue is taken from the prostate and checked under a microscope (prostate biopsy). ? An imaging test called transrectal ultrasonography. Once the condition is diagnosed, tests will be done to determine how far the cancer has spread. This is called staging the cancer. Staging may involve imaging tests, such as a bone scan, CT scan, PET scan, or MRI. Stages of prostate cancer The stages of prostate cancer are as follows: ? Stage 1 (I). At this stage, the cancer is found in the prostate only. The cancer is not visible on imaging tests, and it is usually found by accident, such as during prostate surgery. ? Stage 2 (II). At this stage, the cancer is more advanced than it is in stage 1, but the cancer has not spread outside the prostate. ? Stage 3 (III). At this stage, the cancer has spread beyond the outer layer of the prostate to nearby tissues. The cancer may be found in the seminal vesicles, which are near the bladder and the prostate. ? Stage 4 (IV). At this stage, the cancer has spread to other parts of the body, such as the lymph nodes, bones, bladder, rectum, liver, or lungs. Prostate cancer grading Prostate cancer is also graded according to how the cancer cells look under a microscope. This is called the Birchleaf score and the total score can range from 6?10, indicating how likely it is that the cancer will spread (metastasize) to other parts of the body. The higher the score, the greater the likelihood that the cancer will spread. ? Zoya 6 or lower: This indicates that the cancer cells look similar to normal prostate cells (well differentiated). ? Birchleaf 7: This indicates that the cancer cells look somewhat similar to normal prostate cells (moderately differentiated). ? Zoya 8, 9, or 10: This indicates that the cancer cells look very different than normal prostate cells (poorly differentiated). How is this treated? Treatment for this condition depends on several factors, including the stage of the cancer, your age, personal preferences, and your overall health. Talk with your health care provider about treatment options that are recommended for you. Common treatments include: ? Observation for early stage prostate cancer (active surveillance). This involves having exams, blood tests, and in some cases, more biopsies. For some men, this is the only treatment needed. ? Surgery. Types of surgeries include: ? Open surgery (radical prostatectomy). In this surgery, a larger incision is made to remove the prostate. ? A laparoscopic radical prostatectomy. This is a surgery to remove the prostate and lymph nodes through several small incisions. It is often referred to as a minimally invasive surgery. ? A robotic radical prostatectomy. This is laparoscopic surgery to remove the prostate and lymph nodes with the help of robotic arms that are controlled by the surgeon. ? Cryoablation. This is surgery to freeze and destroy cancer cells. ? Radiation treatment. Types of radiation treatment include: ? External beam radiation. This type aims beams of radiation from outside the body at the prostate to destroy cancerous cells. ? Brachytherapy. This type uses radioactive needles, seeds, wires, or tubes that are implanted into the prostate gland. Like external be (more content not included)... Normal [facility] Urology Office/Clinic Noteon 08-10-2022 Urology Office/Clinic Note Chief Complaint prostate cancer (ACTIVE SURVEILLANCE) HPI Staff 4 month f/u with PSA. Previous dx include prostate cancer (ACTIVE SURVEILANCE), BPH with urinary obstruction and impotence. Current PSA done 08/04/22 is 3.68 and previous done 04/06/22 was 3.26. Tadalafil 10mg as needed. Dysuria: no Incomplete bladder emptying: no Hematuria: no Frequency: no Urgency: sometimes Nocturia: 1x Stream: good steady no straining Leaking: no Post void dripping: yes Wearing pads/ Depends: no Urge incontinence: no Stress incontinence: no Incontinence without Sensory Awareness: no Abdominal pain: no Flank pain: no Sexual complaints: no History of Present Illness Tests reviewed: reviewed UA, PSA. I have reviewed the previous health record information and history for this patient from Dr. Arvizu. I have reviewed and verified the staff HPI to be accurate for this encounter. There have been no associated fever, chills, flank pain, or blood in the urine. Denies any urinary infections since last encounter. Review of Systems PHQ Score Initial Depression Screen Score: 0 ROS - Provider Constitutional: denies weight loss, denies hot flashes. Eyes: denies eye problems. Gastrointestinal: denies nausea, denies vomiting. Cardiovascular: denies chest pain or angina. Integumentary: no dryness Musculoskeletal: denies musculoskeletal symptoms. ENMT: denies otolaryngeal symptoms. Respiratory: no shortness of breath. Heme/Lymph: denies easy bleeding tendency, denies easy bruising tendency. Psychiatric: no confusion, no anxiety. Genitourinary: See HPI. Physical Exam Vitals & Measurements HR: 90(Peripheral) RR: 16 BP: 138/84 HT: 72 in HT: 184 cm WT: 88 kg WT: 193.6 lb BMI: 25.99 General Appearance: alert, no distress, well nourished, well developed male. Genitourinary: normal scrotum, normal testes, normal urethra, normal epididymis, normal vas deferens/spermatic cord. Flank Pain: none. Bladder: nonpalpable. Prostate: normal prostate, estimated weight 35 gms, no hard nodule observed. Assessment/Plan 1. Prostate cancer (C61: Malignant neoplasm of prostate) ACTIVE SURVEILANCE. PSA: 05/22/20 - 1.76 09/29/21 - 2.38 04/06/22 - 3.26 08/04/22 - 3.68 MRI of prostate 10/22/21 - PI RADS 4, no evidence of lymphadenopathy. MRI fusion bx 11/27/21 - Path report shows Birchleaf 6 (3+3) in 3 cores, 20% of tissue or less involved. GG1. PSA slightly increased from prior. Will cont to monitor. Discussed repeating bx at 1 yr shan, around 10/2022. EVELINA today 35 gm, no nodules. Follow up 4 mos PSA or sooner if needed. Pt understands and agrees with plan. Will schedule TRUS of Prostate with Biopsy. The procedural risks, benefits, details, and treatment alternatives have been discussed with the patient. These include minimal to severe bleeding, infection, blood in the semen, inability to urinate, and severe infection requiring hospitalization and IV antibiotics, among others. Full informed consent has been obtained. Will order Local anesthesia. Prophy abx should be sent to [facility]. 2. BPH with urinary obstruction (N40.1: Benign prostatic hyperplasia with lower urinary tract symptoms) UA today negative for blood and infection. Not taking any BPH meds. Frequency with fluid intake. Voids q1hr, has always been like this with fluid intake. Nocturia 1x/night, increased if he drank beer before bed. 3. Impotence (N52.9: Male erectile dysfunction, unspecified) Tadalafil 10 mg prn. Follow-up With When Contact Information Jaspreet ARVIZU MD, URL [facility] [address], [place] [address]- Additional Instructions: schedule TRUS/bx, PSA Patient Education Prostate Cancer I, Vicky Schafer, personally scribed for Dr. Arvizu on 08/10/2022 12:17:47. . Documentation recorded by the scribe, Vicky Schafer, accurately reflects the services(s) I performed and decisions made by me. Authenticated by Dr. Arvizu on 08/10/2022 12:19:51. Problem List/Past Medical History Ongoing BPH with urinary obstruction CAD (coronary artery disease) Elevated PSA Family history of colon cancer requiring screening colonoscopy Hydrocele Hyperlipidemia Hypertension Impotence Myocardial infarct Nocturia Post-void dribbling Prostate cancer Urinary frequency Weak urinary stream Historical No qualifying data Procedure/Surgical History MRI-US fusion guided transperineal biopsy of prostate (11/27/2021), Colonoscopy (04/15/2020), Rotator cuff repair (12/03/2014), Hydrocelectomy (09/13/2014), Vasectomy (09/13/2014), Repair of left inguinal hernia (04/11/2008), Placement of stent in cardiac conduit. Medications aspirin, 81 mg, Chewed, Daily Bee Pollen, 1 capsule, Oral, Daily Lipitor, 40 mg, Oral, Daily Lopressor, 25 mg, Oral, BID losartan 25 mg Tab METOPROLOL TARTRATE 25 MG TABLET, 0 Misc Medication Multivitamin, Therapeutic w/ Min (more content not included)... Normal [facility] Comment on above: Result Comment: Elec tronically Signed By: Jaspreet ARVIZU MD\.br\Date and Time Signed: 08/10/22 12:19 EDT\.br\Electronically Co-Signed By: Vicky Schafer\.br\Date and Time Co-Signed: 08/10/22 12:18 EDT [place] 04-15-2022 Screens [id number]# 1.00CD:127 Normal [facility] Lab Reportson 04-13-2022 Lab Reports [id number]#1 .00CD:127 Normal [facility] Patient Educationon 04-10-19 Patient Education Oncology Prostate Cancer The prostate is a walnut-sized gland that is involved in the production of semen. It is located below a man's bladder, in front of the rectum. Prostate cancer is the abnormal growth of cells in the prostate gland. What are the causes? The exact cause of this condition is not known. What increases the risk? This condition is more likely to develop in men who: ? Are older than age 65. ? Are -Luxembourger. ? Are obese. ? Have a family history of prostate cancer. ? Have a family history of breast cancer. What are the signs or symptoms? Symptoms of this condition include: ? A need to urinate often. ? Weak or interrupted flow of urine. ? Trouble starting or stopping urination. ? Inability to urinate. ? Pain or burning during urination. ? Painful ejaculation. ? Blood in urine or semen. ? Persistent pain or discomfort in the lower back, lower abdomen, hips, or upper thighs. ? Trouble getting an erection. ? Trouble emptying the bladder all the way. How is this diagnosed? This condition can be diagnosed with: ? A digital rectal exam. For this exam, a health care provider inserts a gloved finger into the rectum to feel the prostate gland. ? A blood test called a prostate-specific antigen (PSA) test. ? An imaging test called transrectal ultrasonography. ? A procedure in which a sample of tissue is taken from the prostate and examined under a microscope (prostate biopsy). Once the condition is diagnosed, tests will be done to determine how far the cancer has spread. This is called staging the cancer. Staging may involve imaging tests, such as: ? A bone scan. ? A CT scan. ? A PET scan. ? An MRI. The stages of prostate cancer are as follows: ? Stage I. At this stage, the cancer is found in the prostate only. The cancer is not visible on imaging tests and it is usually found by accident, such as during a prostate surgery. ? Stage II. At this stage, the cancer is more advanced than it is in stage I, but the cancer has not spread outside the prostate. ? Stage III. At this stage, the cancer has spread beyond the outer layer of the prostate to nearby tissues. The cancer may be found in the seminal vesicles, which are near the bladder and the prostate. ? Stage IV. At this stage, the cancer has spread other parts of the body, such as the lymph nodes, bones, bladder, rectum, liver, or lungs. How is this treated? Treatment for this condition depends on several factors, including the stage of the cancer, your age, personal preferences, and your overall health. Talk with your health care provider about treatment options that are recommended for you. Common treatments include: ? Observation for early stage prostate cancer (active surveillance). This involves having exams, blood tests, and in some cases, more biopsies. For some men, this is the only treatment needed. ? Surgery. Types of surgeries include: ? Open surgery. In this surgery, a larger incision is made to remove the prostate. ? A laparoscopic prostatectomy. This is a surgery to remove the prostate and lymph nodes through several, small incisions. It is often referred to as a minimally invasive surgery. ? A robotic prostatectomy. This is a surgery to remove the prostate and lymph nodes with the help of a robotic arm that is controlled by a computer. ? Orchiectomy. This is a surgery to remove the testicles. ? Cryosurgery. This is a surgery to freeze and destroy cancer cells. ? Radiation treatment. Types of radiation treatment include: ? External beam radiation. This type aims beams of radiation from outside the body at the prostate to destroy cancerous cells. ? Brachytherapy. This type uses radioactive needles, seeds, wires, or tubes that are implanted into the prostate gland. Like external beam radiation, brachytherapy destroys cancerous cells. An advantage is that this type of radiation limits the damage to surrounding tissue and has fewer side effects. ? High-intensity, focused ultrasonography. This treatment destroys cancer cells by delivering high-energy ultrasound waves to the cancerous cells. ? Chemotherapy medicines. This treatment kills cancer cells or stops them from multiplying. ? Hormone treatment. This treatment involves taking medicines that act on one of the male hormones (testosterone): ? By stopping your body from producing testosterone. ? By blocking testosterone from reaching cancer cells. Follow these instructions at home: ? Take bveq-xgu-prpdcap and prescription medicines only as told by your health care provider. ? Maintain a healthy diet. ? Get plenty of sleep. ? Consider joining a support group for men who have prostate cancer. Meeting with a support group may help you learn to cope with the stress of having cancer. ? Keep all follow-up visits as told by your health care provider. This is important. ? If you have to go to the hospital, notify your cancer specialis (more content not included)... Normal [facility] Urology Office/Clinic Noteon 04-10-2022 Urology Office/Clinic Note Chief Complaint 4m PSA HPI Staff 4m PSA due to Prostate Cancer. ACTIVE SURVEILLANCE Additional DX; BPH & Impotence *Tadalafil 10mg PRN therapy.- doesn't feel like its working as well as it did when he first started. But working. PSA done 04/06/22- 3. Back pain has subsided. No related testing done. Still getting up 1-2x/night. Denies all other urinary complaints. IPSS 11 History of Present Illness Tests reviewed: reviewed UA and PSA. I have reviewed the previous health record information and history for this patient from Dr. Arvizu. I have reviewed and verified the staff HPI to be accurate for this encounter. There have been no associated fever, chills, flank pain, or blood in the urine. Denies any urinary infections since last encounter. Review of Systems PHQ Score Initial Depression Screen Score: 0 ROS - Provider Constitutional: denies weight loss, denies hot flashes. Eyes: denies eye problems. Gastrointestinal: denies nausea, denies vomiting. Cardiovascular: denies chest pain or angina. Integumentary: no dryness Musculoskeletal: denies musculoskeletal symptoms. ENMT: denies otolaryngeal symptoms. Respiratory: no shortness of breath. Heme/Lymph: denies easy bleeding tendency, denies easy bruising tendency. Psychiatric: no confusion, no anxiety. Genitourinary: denies dysuria, denies hematuria, denies discharge, denies urinary frequency, denies urinary hesitancy, denies nocturia, denies incontinence, denies genital sores, denies decreased libido, and denies erectile dysfunction. Physical Exam Vitals & Measurements HT: 72 in HT: 184 cm WT: 88 kg WT: 193.6 lb BMI: 25.99 General Appearance: alert, no distress, well nourished, well developed male. Genitourinary: normal scrotum, normal testes, normal urethra, normal epididymis, normal vas deferens/spermatic cord. Flank Pain: none. Bladder: nonpalpable. Prostate: normal prostate, estimated weight 35 gms, no hard nodule observed. Assessment/Plan 1. Prostate cancer (C61: Malignant neoplasm of prostate) ACTIVE SURVEILLANCE. S/p MRI fusion bx done 11/27/21. Path report shows Zoya 6 (3+3) in 3 cores, 20% of tissue or less involved. MRI of prostate done 10/22/21 showed PI RADS 4, no evidence of lymphadenopathy. PSA: 05/22/20 - 1.76 09/29/21 - 2.38 04/06/22 - 3.26 At last visit, pt had made mention that he was experiencing back pain. Recommended following up with Dr. Chawla at that time. Pt shares today that he is no longer experiencing pain. Explained to the pt that his PSA value is not concerning at this time. He understands that there is variability. Discussed at the time of pt's next biopsy I do not recommend transperineal. He understands it will be transrectally. EVELINA today 35gms and neg for nodularity. Follow up in 4 months with PSA and EVELINA which will continue for a full year. Pt agrees with plan. All questions/concerns were discussed. Pt. to call the office if heencounters any issues prior. Pt. acknowledges understanding. 2. BPH with urinary obstruction (N40.1: Benign prostatic hyperplasia with lower urinary tract symptoms) Patient not currently taking any prostate medications. IPSS 11 (moderate symptoms). UA today neg. Pt states he gets up at least once per night but feels his urination has not changed. Steady stream and feels he is emptying. Pt is taking Nugenix, B Pollen, multivitamin, along with other supplements. Ok to keep taking. 3. Impotence (N52.9: Male erectile dysfunction, unspecified) Tadalafil 10mg PRN therapy. Pt shares that he feels it is not working as well as it did but it is still helping. Pt states he usually breaks the capsule in half, advised to take a full capsule and he is aware not to exceed 20mg. Follow-up With When Contact Information Jaspreet ARVIZU MD, URL [address] [place] [address]- Additional Instructions: 4 mos w/ PSA & EVELINA Patient Education Prostate Cancer I, Lizette Heller, personally scribed for Dr. Arvizu on 04/10/2022 11:02:30. . Documentation recorded by the scribe, Lizette Heller, accurately reflects the services(s) I performed and decisions made by me. Authenticated by Dr. Arvizu on 04/10/2022 11:04:16. Problem List/Past Medical History Ongoing Benign prostatic hyperplasia (BPH) with post-void dribbling BPH with urinary obstruction CAD (coronary artery disease) Elevated PSA Family history of colon cancer requiring screening colonoscopy Hydrocele Hyperlipidemia Hypertension Impotence Myocardial infarct Nocturia Post-void dribbling Prostate cancer Urinary frequency Weak urinary stream Historical No qualifying data Procedure/Surgical History MRI-US fusion guided transperineal biopsy of prostate (11/27/2021), Colonoscopy (04/15/2020), Rotator cuff repair (12/03/2014), Hydrocelectomy (09/13/2014), Vasectomy (09/13/2014), Repair of left inguinal hernia (04/11/2008), Plac (more content not included)... Normal [facility] Comment on above: Result Comment: Elec tronically Signed By: Jaspreet ARVIZU MD\.br\Date and Time Signed: 04/10/22 11:04 EST\.br\Electronically Co-Signed By: Lizette Heller\.br\Date and Time Co-Signed: 04/10/22 11:02 EST Follow-Upon 01-30-2022 Follow-Up [id number] Black Yates 1965 M Date Provider Department Center 01/30/2022 JUSTIN THOMAS Family History Family history unknown: Yes Level of Service:62027 DC OFFICE/OUTPATIENT ESTABLISHED LOW MDM 20-29 MIN Reason for Visit and Comments: Coronary Artery Disease [187] Hypertension [523293] Hyperlipidemia [182] Normal [facility] LIPID PROFILEon 01-30-2022 CHOL-HDL RATIO NORM SEE BELOW Normal [facility] Comment on above: Result Comment: 3.3 - 4.4 LOW RISK 4.4 - 7.1 AVERAGE RISK 7.1 - 11.0 MODERATE RISK >11.0 HIGH RISK Performed By: #### L IPID #### [facility] [address] [place], [place] [address] Dr. Betzy Olivera Cholesterol [Mass/Vol] 144 mg/dL Normal <=200 [facility] Comment on above: Performed By: #### L IPID #### [facility] [address] [place] [id number] Betzy Olivera Cholesterol in HDL [Mass/Vol] 45 mg/dL Normal 40-60 [facility] Comment on above: Performed By: #### L IPID #### [facility] [address] [place] [address] [address] Betzy Olivera Cholesterol in LDL [Mass/Vol] 68.0 mg/dL Normal [facility] Comment on above: Performed By: #### L IPID #### [facility] [address] [place] [address] [address] Betzy Olivera Cholesterol.total/ Cholesterol in HDL [Mass ratio] 3.2 {ratio} Normal [facility] Comment on above: Performed By: #### L IPID #### [facility] [address] [place] [id number] Betzy Olivera HDL NORMAL > or = 60 mg/dl - LO W CARDIOVASCULAR RISK <40 mg/dl - HIGH CARDIOVASCULAR RISK Normal [facility] Comment on above: Performed By: #### L IPID #### [facility] [address] [place] [id number] Betzy Olivera LDL CALC NORMAL SEE BELOW Normal [facility] Comment on above: Result Comment: <100 mg/dl OPTIMAL 100 - 129 mg/dl NEAR OR ABOVE OPTIMAL 130 - 159 mg/dl BORDERLINE HIGH 160 - 189 mg/dl HIGH >190 mg/dl VERY HIGH Performed By: #### L IPID #### [facility] [address] [place] [phone] Betzy Olivera Triglyceride [Mass/Vol] 155 mg/dL Critically high <=150 [facility] Comment on above: Performed By: #### L IPID #### [facility] [address] [place] [address] [address] Betzy Olivera VLDL CALC 31.0 mg/dL Normal [facility] Comment on above: Performed By: #### L IPID #### [facility] [address] [place] [address] [address] Betzy Olivera CBC AUTO DIFFon 11-25-2021 BASO # 0.0 103/ul Normal 0.0-0.1 [facility] Comment on above: Performed By: #### C BC #### [facility] [address] [place] [address] [address] Betzy Olivera Basophils/100 WBC (Bld) 0.6 % Normal 0.2-2.0 [facility] Comment on above: Performed By: #### C BC #### [facility] [address] [place] [address] Dr. Betzy Olivera EO # 0.3 103/ul Normal 0.0-0.7 [facility] Comment on above: Performed By: #### C BC #### [facility] [address] [place] [address] [address] Betzy Olivera Eosinophils/100 WBC (Bld) 4.4 % Normal 0.9-7.0 [facility] Comment on above: Performed By: #### C BC #### [facility] [address] [place] [address] [address] Betzy Olivera Erythrocyte distribution width (RBC) [Ratio] 12.2 % Normal 11.0-15.0 [facility] Comment on above: Performed By: #### C BC #### [facility] [address] [place] [address] Dr. Betzy Olivera Hematocrit (Bld) [Volume fraction] 40.4 % Critically low 42.0-54.0 [facility] Comment on above: Performed By: #### C BC #### [facility] [address] [place] [address] Dr. Betzy Olivera Hemoglobin (Bld) [Mass/Vol] 13.7 g/dL Critically low 14.0-18.0 [facility] Comment on above: Performed By: #### C BC #### [facility] [address] [place] [address] [address] Betzy Olivera IG # 0.04 10e3/ul Critically high 0.00-0.03 [facility] Comment on above: Performed By: #### C BC #### [facility] [address] [place] [address] [address] Betzy Olivera IG % 0.6 % Critically high 0.0-0.5 [facility] Comment on above: Performed By: #### C BC #### [facility] [address] [place] [address] [address] Betzy Olivera LYMPH # 1.0 103/ul Critically low 1.2-3.8 [facility] Comment on above: Performed By: #### C BC #### [facility] [address] [place] [address] Dr. Betzy Olivera Lymphocytes/100 WBC (Bld) 16.4 % Critically low 20.5-60.0 [facility] Comment on above: Performed By: #### C BC #### [facility] [address] [place] [address] [address] Betzy Olivera MANUAL DIFF REQ NO Normal [facility] Comment on above: Performed By: #### C BC #### [facility] [address] [place] [address] [address] Betzy Olivera MCH (RBC) [Entitic mass] 29.5 pg Normal 25.9-34.0 [facility] Comment on above: Performed By: #### C BC #### [facility] [address] [place] [address] [address] Betzy Olivera MCHC (RBC) [Mass/Vol] 33.9 g/dL Normal 29.9-35.2 [facility] Comment on above: Performed By: #### C BC #### [facility] [address] [place] [address] Dr. Betzy Olivera MCV (RBC) [Entitic vol] 87.1 fL Normal 80.0-94.0 [facility] Comment on above: Performed By: #### C BC #### [facility] [address] [place] [address] [address] Betzy Olivera MONO # 0.6 103/ul Normal 0.3-0.8 [facility] Comment on above: Performed By: #### C BC #### [facility] [address] [place] [address] [address] Betzy Olivera Monocytes/100 WBC (Bld) 9.9 % Normal 1.7-12.0 [facility] Comment on above: Performed By: #### C BC #### [facility] [address] [place] [address] [address] Betzy Olivera NEUT # 4.3 103/ul Normal 1.4-6.5 [facility] Comment on above: Performed By: #### C BC #### [facility] [address] [place] [address] [address] Bezty Olivera Neutrophils/100 WBC (Bld) 68.1 % Normal 43.0-75.0 [facility] Comment on above: Performed By: #### C BC #### [facility] [address] [place] [address] [address] Betzy Olivera Platelet mean volume (Bld) [Entitic vol] 10.6 fL Normal 9.5-13.5 [facility] Comment on above: Performed By: #### C BC #### [facility] [address] [place] [address] [address] Betzy Olivera PLT 225 103/ul Normal 150-450 [facility] Comment on above: Performed By: #### C BC #### [facility] [address] [place] [address] [address] Betzy Olivera RBC 4.64 106/ul Critically low 4.70-6.10 [facility] Comment on above: Performed By: #### C BC #### [facility] [address] [place] [address] [address] Betzy Olivera WBC 6.3 103/ul Normal 4.0-11.0 [facility] Comment on above: Performed By: #### C BC #### [facility] [address] [place] [address] Dr. Betzy Olivera Covid-19 PCR (CVDTB)on 10-31 SARS-CoV-2 (COVID-19) RNA KARLIE+probe Ql (Unsp spec) Not detected Normal NOT DETECTED [facility] Comment on above: Result Comment: This test is not yet approved or cleared by the [place] FDA. When there are no FDA-approved or cleared tests available, and other criteria are met, FDA can make tests available under an emergency access mechanism called an Emergency Use Authorization (EUA). The EUA for this test is supported by the [place] of Health and Human Service's (HHS's) declaration that circumstances exist to justify the emergency use of in vitro diagnostics for the detection and/or diagnosis of the virus that causes COVID-19. This EUA will remain in effect (meaning this test can be used) for the duration of the COVID-19 declaration justifying emergency of IVDs, unless it is terminated or revoked by FDA (after which the test may no longer be used). When diagnostic testing is negative, the possibility of a false negative should be considered in the context of a patient's recent exposures and the presence of clinical signs and symptoms consistent with SARS-CoV-2. Performed By: #### C VDTB #### [facility] [address] [place] [address] Dr. Betzy Olivera PROF CHEM 8 (BAS METB)on Anion gap [Moles/Vol] 13.6 mmol/L Normal [facility] Comment on above: Performed By: #### B MP #### [facility] [address] [place] [address] Dr. Betzy Olivera Calcium [Mass/Vol] 8.8 mg/dL Normal 8.5-10.1 [facility] Comment on above: Performed By: #### B MP #### [facility] [address] [place] [address] Dr. Betzy Olivera Chloride [Moles/Vol] 104 mmol/L Normal 98-107 [facility] Comment on above: Performed By: #### B MP #### [facility] [address] [place] [address] Dr. Betzy Olivera CO2 [Moles/Vol] 26.2 mmol/L Normal 21.0-32.0 [facility] Comment on above: Performed By: #### B MP #### [facility] [address] [place] [address] [address] Betzy Olivera Creatinine [Mass/Vol] 1.00 mg/dL Normal 0.70-1.30 [facility] Comment on above: Performed By: #### B MP #### [facility] [address] [place] [address] [address] Betzy Olivera EGFR-AF GUATEMALAN >60 Normal >=60 [facility] Comment on above: Performed By: #### B MP #### [facility] [address] [place] [address] [address] Betzy Olivera EGFR-NON AF GUATEMALAN >60 Normal >=60 [facility] Comment on above: Performed By: #### B MP #### [facility] [address] [place] [address] [address] Betzy Olivera Glucose [Mass/Vol] 115 mg/dL Critically high 74-106 [facility] Comment on above: Performed By: #### B MP #### [facility] [address] [place] [address] [address] Betzy Olivera Potassium [Moles/Vol] 3.8 mmol/L Normal 3.5-5.1 [facility] Comment on above: Performed By: #### B MP #### [facility] [address] [place] [address] [address] Betzy Olivera Sodium [Moles/Vol] 140 mmol/L Normal 136-145 [facility] Comment on above: Performed By: #### B MP #### [facility] [address] [place] [address] [address] Betzy Olivera Urea nitrogen [Mass/Vol] 19.0 mg/dL Critically high 7.0-18.0 [facility] Comment on above: Performed By: #### B MP #### [facility] [address] [place] [address] [address] Betzy Olivera Urea nitrogen/Creatinin e [Mass ratio] 19.0 mg/mg Normal [facility] Comment on above: Performed By: #### B MP #### [facility] [address] [place] [address] Dr. Betzy Olivera PROTIMEon 11-25-2021 INR Coag (PPP) [Relative time] 1.04 {INR} Normal [facility] Comment on above: Performed By: #### P T, PTT #### [facility] [address] [place] [address] Dr. Betzy Olivera INR GUIDELINES SEE BELOW Normal [facility] Comment on above: Result Comment: [place] RED INR: 2.0 - 3.0 CONDITIONS NOT LISTED BELOW 2.5 - 3.5 FOR PROSTHETIC HEART VALVE REPLACEMENT 2.5 - 3.5 RECURRENT THROMBOSIS Performed By: #### P T, PTT #### [facility] [address] [place] [address] Dr. Betzy Olivera PT Coag (PPP) [Time] 11.2 s Normal 9.0-11.6 [facility] Comment on above: Performed By: #### P T, PTT #### [facility] [address] [place] [address] Dr. Betzy Olivera PTTon 11-25-2021 aPTT Coag (Bld) [Time] 30.7 s Normal 22.3-36.2 [facility] Comment on above: Performed By: #### P T, PTT #### [facility] [address] [place] [address] Dr. Betzy Olivera MR prostate wo/w conon 10-23 MR prostate wo/w con [facility] [place] [address] MRI Report Signed Patient: Black Yates MR#: [id number] : 1965 Acct:[id number] Age/Sex: 55 / M ADM Date: 10/22/21 Loc: MR Room: Type: [facility] Attending Dr: Jaspreet Arvizu MD Copies to: Jaspreet Arvizu MD Ordering Provider: Jaspreet Arvizu MD Date of Service: 10/22/21 MR/MR prostate wo/w con: ELEVATED PSA EXAMINATION: MR prostate wo/w con HISTORY: Elevated PSA COMPARISON: NONE TECHNIQUE: Multiparametric imaging of the prostate gland was performed with IV contrast. FINDINGS: Prostate Dimensions: 4.6 x 3.4 x 4.0 cm Prostate Volume: 33 mL Peripheral Zone: Heterogenous inT2 signal suggestive of prior prostatitis. A focal area of T2 hypointensity is identified involving the lateral aspect of the right peripheral zone at the level of the mid gland measuring 7 x 6 mm with associated restricted diffusion and low ADC value. Please see series 4 image 16, series 650 image 12 and series 600 image 12. Additional focal area of T2 hypointensity is identified involving the posterior aspect of the left peripheral zone at the level of the mid gland measuring 7 x 6 mm with associated restricted diffusion low ADC value. Please see series 4 image 17, series 650 image 13 and series 6, image 13. No MRI evidence of extraprostatic extension is seen. Central/Transitional Zone: BPH changes. Seminal Vesicles: Unremarkable Neurovascular bundles: Unremarkable. Lymphadenopathy: No evidence of lymphadenopathy. Bladder: No focal lesion. Bowel: Diverticulosis. Peritoneal Cavity: No free fluid. Bones: No suspicious bony lesion. MR/MR prostate wo/w con IMPRESSION: 1. A focal area of T2 hypointensity is identified involving the lateral aspect of the right peripheral zone at the level of the mid gland measuring 7 x 6 mm with associated restricted diffusion and low ADC value. Please see series 4 image 16, series 650 image 12 and series 600 image 12. PI-RADS 4. Targeting on biopsy is recommended. 2. Additional focal area of T2 hypointensity is identified involving the posterior aspect of the left peripheral zone at the level of the mid gland measuring 7 x 6 mm with associated restricted diffusion low ADC value. Please see series 4 image 17, series 650 image 13 and series 6, image 13. PI-RADS 4. Targeting on biopsy is recommended. 3. Impression dictated by: Judd Hernández Jr., D.O.10/23/2021 12:32 PM Dictation Location: [place] [address] Transcribed By: [facility] 10/23/21 1232 Dictated By: Judd Hernández Jr, DO 10/23/21 1226 Signed By: 10/23/21 1232 [facility] Social History Date Type Detail Facility Start: 03-29-2020 End: 01-29-2023 Tobacco smoking status Never smoked tobacco (finding) [facility] Start: 1965 Sex Assigned At Male [facility] Sex Assigned At Male [facility] Tobacco smoking status Never [facility] Vital Signs Date Time Vital Sign Value Performing Clinician Faci lity 01-29-2023 11:49-0500 Blood Pressure Location Jaspreet ARVIZU [facility] 01-29-2023 11:49-0500 Diastolic blood pressure 72 mm[Hg] Jaspreet ARVIZU [facility] 01-29-2023 11:49-0500 Heart rate 80 /min Jaspreetgale ARVIZU [facility] 01-29-2023 11:49-0500 Respiratory rate 16 /min Jaspreetgale ARVIZU [facility] 01-29-2023 11:49-0500 Systolic blood pressure 127 mm[Hg] Jaspreet ARVIZU [facility] 12-05-2021 08:23-0400 Blood Pressure Location Jaspreet ARVIZU [facility] 12-05-2021 08:23-0400 Diastolic blood pressure 88 mm[Hg] Jaspreet ARVIZU [facility] 12-05-2021 08:23-0400 Heart rate 69 /min Jaspreet ARVIZU [facility] 12-05-2021 08:23-0400 Systolic blood pressure 120 mm[Hg] Jaspreet ARVIZU [facility] 10-03-2021 09:56-0400 Blood Pressure Location Jaspreet ARVIZU [facility] 10-03-2021 09:56-0400 Diastolic blood pressure 79 mm[Hg] Jaspreet ARVIZU [facility] 10-03-2021 09:56-0400 Heart rate 56 /min Jaspreet ARVIZU [facility] 10-03-2021 09:56-0400 Respiratory rate 16 /min Jaspreet ARVIZU [facility] 10-03-2021 09:56-0400 Systolic blood pressure 122 mm[Hg] Jaspreet ARVIZU [facility] Functional Status Date Assessment Result Facility 01-29-2023 Functional Status N/A [facility] 04-10-2022 Functional Status N/A [facility] 12-05-2021 Functional Status N/A [facility] 10-03-2021 Functional Status N/A [facility] Clinical Notes 10-03-2021 to 01-29-2023 Note Date & Type Note Facility 01-29-2023 Hospital Discharge instructions Patient Education 01/29/2023 12:40:03 Prostate Cancer Prostate Cancer The prostate is a small gland that produces fluid that makes up semen (seminal fluid). It is located below the bladder in men, in front of the rectum. Prostate cancer is the abnormal growth of cells in the prostate gland. What are the causes? The exact cause of this condition is not known. What increases the risk? You are more likely to develop this condition if: You are 65 years of age or older. You have a family history of prostate cancer. You have a family history of breast and ovarian cancer. You have genes that are passed from parent to child (inherited), such as BRCA1 and BRCA2. You have Narayan syndrome. men and men of descent are diagnosed with prostate cancer at higher rates than other men. The reasons for this are not well understood and are likely due to a combination of genetic and environmental factors. What are the signs or symptoms? Symptoms of this condition include: Problems with urination. This may include: ?A weak or interrupted flow of urine. ?Trouble starting or stopping urination. ?Trouble emptying the bladder all the way. ?The need to urinate more often, especially at night. Blood in urine or semen. Persistent pain or discomfort in the lower back, lower abdomen, or hips. Trouble getting an erection. Weakness or numbness in the legs or feet. How is this diagnosed? This condition can be diagnosed with: A digital rectal exam. For this exam, a health care provider inserts a gloved finger into the rectum to feel the prostate gland. A blood test called a prostate-specific antigen (PSA) test. A procedure in which a sample of tissue is taken from the prostate and checked under a microscope (prostate biopsy). An imaging test called transrectal ultrasonography. Once the condition is diagnosed, tests will be done to determine how far the cancer has spread. This is called staging the cancer. Staging may involve imaging tests, such as a bone scan, CT scan, PET scan, or MRI. Stages of prostate cancer The stages of prostate cancer are as follows: Stage 1 (I). At this stage, the cancer is found in the prostate only. The cancer is not visible on imaging tests, and it is usually found by accident, such as during prostate surgery. Stage 2 (II). At this stage, the cancer is more advanced than it is in stage 1, but the cancer has not spread outside the prostate. Stage 3 (III). At this stage, the cancer has spread beyond the outer layer of the prostate to nearby tissues. The cancer may be found in the seminal vesicles, which are near the bladder and the prostate. Stage 4 (IV). At this stage, the cancer has spread to other parts of the body, such as the lymph nodes, bones, bladder, rectum, liver, or lungs. Prostate cancer grading Prostate cancer is also graded according to how the cancer cells look under a microscope. This is called the Zoya score and the total score can range from 6 10, indicating how likely it is that the cancer will spread (metastasize) to other parts of the body. The higher the score, the greater the likelihood that the cancer will spread. Zoya 6 or lower: This indicates that the cancer cells look similar to normal prostate cells (well differentiated). [place] 7: This indicates that the cancer cells look somewhat similar to normal prostate cells (moderately differentiated). Zoya 8, 9, or 10: This indicates that the cancer cells look very different than normal prostate cells (poorly differentiated). How is this treated? Treatment for this condition depends on several factors, including the stage of the cancer, your age, personal preferences, and your overall health. Talk with your health care provider about treatment options that are recommended for you. Common treatments include: Observation for early stage prostate cancer (active surveillance). This involves having exams, blood tests, and in some cases, more biopsies. For some men, this is the only treatment needed. Surgery. Types of surgeries include: ?Open surgery (radical prostatectomy). In this surgery, a larger incision is made to remove the prostate. ?A laparoscopic radical prostatectomy. This is a surgery to remove the prostate and lymph nodes through several small incisions. It is often referred to as a minimally invasive surgery. ?A robotic radical prostatectomy. This is laparoscopic surgery to remove the prostate and lymph nodes with the help of robotic arms that are controlled by the surgeon. ?Cryoablation. This is surgery to freeze and destroy cancer cells. Radiation treatment. Types of radiation treatment include: ?External beam radiation. This type aims beams of radiation from outside the body at the prostate to destroy cancerous cells. ?Brachytherapy. This type uses radioactive needles, seeds, wires, or tubes that are implanted into the prostate gland. Like external beam radiation, brachytherapy destroys cancerous cells. An advantage is that this type of radiation limits the damage to surrounding tissue and has fewer side effects. Chemotherapy. This treatment kills cancer cells or stops them from multiplying. It kills both cancer cells and normal cells. Targeted therapy. This treatment uses medicines to kill cancer cells without damaging normal cells. Hormone treatment. This treatment involves taking medicines that act on testosterone, one of the male hormones, by: ?Stopping your body from producing testosterone. ?Blocking testosterone from reaching cancer cells. Follow these instructions at home: Lifestyle Do not use any products that contain nicotine or tobacco. These products include cigarettes, chewing tobacco, and vaping devices, such as e-cigarettes. If you need help quitting, ask your health care provider. Eat a healthy diet. To do this: ?Eat foods that are high in fiber. These include beans, whole grains, and fresh fruits and vegetables. ?Limit foods that are high in fat and sugar. These include fried or sweet foods. Treatment for prostate cancer may affect sexual function. If you have a partner, continue to have intimate moments. This may include touching, holding, hugging, and caressing your partner. Get plenty of sleep. Consider joining a support group for men who have prostate cancer. Meeting with a support group may help you learn to manage the stress of having cancer. General instructions Take rtyv-lia-kibymhk and prescription medicines only as told by your health care provider. If you have to go to the hospital, notify your cancer specialist (oncologist). Keep all follow-up visits. This is important. Where to find more information [place] [employer]: www.cancer.org [place] [employer]: www.cancer.net National Cancer [place]: www.cancer.gov Contact a health care provider if: You have new or increasing trouble urinating. You have new or increasing blood in your urine. You have new or increasing pain in your hips, back, or chest. Get help right away if: You have weakness or numbness in your legs. You cannot control urination or your bowel movements (incontinence). You have chills or a fever. Summary The prostate is a small gland that is involved in the production of semen. It is located below a man's bladder, in front of the rectum. Prostate cancer is the abnormal growth of cells in the prostate gland. Treatment for this condition depends on the stage of the cancer, your age, personal preferences, and your overall health. Talk with your health care provider about treatment options that are recommended for you. Consider joining a support group for men who have prostate cancer. Meeting with a support group may help you learn to manage the stress of having cancer. This information is not intended to replace advice given to you by your health care provider. Make sure you discuss any questions you have with your health care provider. Document Revised: 05/14/2021 Document Reviewed: 05/14/2021 LOYAL3 Patient Education 2022 [employer]. Follow Up Care 08/10/2022 12:38:00 With:CORWIN GUILLORY, Jaspreet Bhatt, URL Address: [address] [place] [id number]- When: Unknown [facility] 01-06-2023 Note Patient here for 1 y ear follow up and surgery clearance. He is scheduled for prostate biopsy with Dr. Arvizu on 01/14/2023. He is requesting patient hold his aspirin for 7 days prior. He denies chest pain, SOB, and palpitations. Review of Systems Neurological: Positive for light-headedness. All other systems reviewed and are negative. [facility] 01-06-2023 Note [facility] Subjective Black Yates is a 57 y.o. year old male patient being seen for Pre-op Exam, Coronary Artery Disease, Hypertension, and Hyperlipidemia Patient here for 1 year follow up and surgery clearance. He is scheduled for prostate biopsy with Dr. Arvizu on 01/14/2023. He is requesting patient hold his aspirin for 7 days prior. He denies chest pain, SOB, and palpitations. Patient Active Problem List Diagnosis Coronary atherosclerosis Dizziness and giddiness Essential hypertension Hyperlipidemia Old myocardial infarction Family History Family history unknown: Yes Social History Tobacco Use Smoking status: Never Smokeless tobacco: Never Substance Use Topics Alcohol use: Not Currently Drug use: Never Black is here for follow up on coronary artery disease s/p stenting of the LAD, Cx, and RCA (November 2010) and hypertension and hyperlipidemia. He states he feels well. No significant changes since last seen. He gets occasional lightheadedness with position changes. Resolves quickly. Denies CP, dyspnea, orthopnea, PND, LE edema, palpitations. He exercises with no symptoms. He plays baseball and basketball with no issues. He developed cough on dionte inhibitor and is currently on losartan. He is pending a prostate biopsy. He is following with urology for his prostate CA. ROS Neurological: Positive for light-headedness. All other systems reviewed and are negative. Objective Visit Vitals BP 135/83 (BP Location: Left arm, Patient Position: Sitting) Pulse 73 Ht 1.829 m (6') Wt 92.1 kg (203 lb) SpO2 97% BMI 27.53 kg/m??? Smoking Status Never BSA 2.16 m??? Physical Exam Constitutional: Appearance: He is well-developed. He is not ill-appearing. HENT: Head: Normocephalic and atraumatic. Nose: Nose normal. Eyes: General: No scleral icterus. Pupils: Pupils are equal, round, and reactive to light. Neck: Thyroid: No thyromegaly. Vascular: No JVD. Cardiovascular: Rate and Rhythm: Normal rate and regular rhythm. Pulses: Radial pulses are 2+ on the right side and 2+ on the left side. Heart sounds: Normal heart sounds. No murmur heard. No friction rub. No gallop. Pulmonary: Effort: Pulmonary effort is normal. No respiratory distress. Breath sounds: Normal breath sounds. No wheezing or rales. Chest: Chest wall: No tenderness. Abdominal: General: Bowel sounds are normal. There is no distension. Palpations: Abdomen is soft. Tenderness: There is no abdominal tenderness. Musculoskeletal: General: No swelling. Cervical back: Neck supple. Skin: General: Skin is warm and dry. Neurological: General: No focal deficit present. Mental Status: He is alert and oriented to person, place, and time. Psychiatric: Mood and Affect: Mood normal. Behavior: Behavior is cooperative. Judgment: Judgment normal. Allergies No Known Allergies Medications Current Outpatient Medications: aspirin 81 mg EC tablet, Take 1 tablet every day by oral route., Disp: , Rfl: atorvastatin (Lipitor) 40 mg tablet, TAKE 1 TABLET (40 MG) BY MOUTH IN THE MORNING., Disp: 90 tablet, Rfl: 3 losartan (Cozaar) 25 mg tablet, Take 1 tablet (25 mg) by mouth once daily as directed., Disp: 90 tablet, Rfl: 3 metoprolol tartrate (Lopressor) 25 mg tablet, Take 1 tablet (25 mg) by mouth in the morning and at bedtime., Disp: 180 tablet, Rfl: 3 nitroglycerin (Nitrostat) 0.4 mg SL tablet, Place 1 tablet (0.4 mg) under the tongue every 5 (five) minutes if needed for chest pain (Place 1 tablet under your tongue every 5 mins x3 doses. If chest pain doesn't resolve, report to the ER.)., Disp: 30 tablet, Rfl: 3 Recent Labs No visits with results within 6 Month(s) from this visit. Latest known visit with results is: No results found for any previous visit. 12/31/2022 Hgb 13.6, plt 199 K 3.8, Na 136, BUN 20, Cr 0.91, eGFR >60 Lipids 01/30/2022 Chol 144, HDL 45, trig 155, LDL 68 Blood testing 11/25/2021: Hemoglobin 13.7, platelets 225, potassium 3.8, BUN 19, creatinine 1.0. Blood testing 10/16/2019: Potassium 4.1, BUN 17, creatinine 0.9, HDL 52, cholesterol 161, triglycerides 168, LDL 75, LFTs normal. Lipid profile 08/27/2015 showed LDL 69, TG 71. His LDL was 75 in August 2013. Imaging and other tests EKG 12/31/2022: sinus darling, HR 56 Echocardiogram 11/09/2019: EF 63%, no RWMA, normal diastolic function, normal RV size and function, unable to assess right sided pressures, no significant valvular abnormalities ECG 08/20/2014 showed normal sinus rhythm. ECG 11/25/2021: Sinus rhythm. Assessment/Plan Diagnoses and all orders for this visit: Coronary artery disease involving [place] coronary artery of [place] heart without angina pectoris - nitroglycerin (Nitrostat) 0.4 mg SL tablet; Place 1 tablet (0.4 mg) under the tongue every 5 (five) minutes if needed for chest pain (Place 1 tablet under your tongue every 5 mins x3 doses. If c (more content not included)... [facility] 04-10-2022 Hospital Discharge instructions Patient Education 04/10/2022 10:57:07 Prostate Cancer Prostate Cancer The prostate is a walnut-sized gland that is involved in the production of semen. It is located below a man's bladder, in front of the rectum. Prostate cancer is the abnormal growth of cells in the prostate gland. What are the causes? The exact cause of this condition is not known. What increases the risk? This condition is more likely to develop in men who: Are older than age 65. Are -[place]. Are obese. Have a family history of prostate cancer. Have a family history of breast cancer. What are the signs or symptoms? Symptoms of this condition include: A need to urinate often. Weak or interrupted flow of urine. Trouble starting or stopping urination. Inability to urinate. Pain or burning during urination. Painful ejaculation. Blood in urine or semen. Persistent pain or discomfort in the lower back, lower abdomen, hips, or upper thighs. Trouble getting an erection. Trouble emptying the bladder all the way. How is this diagnosed? This condition can be diagnosed with: A digital rectal exam. For this exam, a health care provider inserts a gloved finger into the rectum to feel the prostate gland. A blood test called a prostate-specific antigen (PSA) test. An imaging test called transrectal ultrasonography. A procedure in which a sample of tissue is taken from the prostate and examined under a microscope (prostate biopsy). Once the condition is diagnosed, tests will be done to determine how far the cancer has spread. This is called staging the cancer. Staging may involve imaging tests, such as: A bone scan. A CT scan. A PET scan. An MRI. The stages of prostate cancer are as follows: Stage I. At this stage, the cancer is found in the prostate only. The cancer is not visible on imaging tests and it is usually found by accident, such as during a prostate surgery. Stage II. At this stage, the cancer is more advanced than it is in stage I, but the cancer has not spread outside the prostate. Stage III. At this stage, the cancer has spread beyond the outer layer of the prostate to nearby tissues. The cancer may be found in the seminal vesicles, which are near the bladder and the prostate. Stage IV. At this stage, the cancer has spread other parts of the body, such as the lymph nodes, bones, bladder, rectum, liver, or lungs. How is this treated? Treatment for this condition depends on several factors, including the stage of the cancer, your age, personal preferences, and your overall health. Talk with your health care provider about treatment options that are recommended for you. Common treatments include: Observation for early stage prostate cancer (active surveillance). This involves having exams, blood tests, and in some cases, more biopsies. For some men, this is the only treatment needed. Surgery. Types of surgeries include: ?Open surgery. In this surgery, a larger incision is made to remove the prostate. ?A laparoscopic prostatectomy. This is a surgery to remove the prostate and lymph nodes through several, small incisions. It is often referred to as a minimally invasive surgery. ?A robotic prostatectomy. This is a surgery to remove the prostate and lymph nodes with the help of a robotic arm that is controlled by a computer. ?Orchiectomy. This is a surgery to remove the testicles. ?Cryosurgery. This is a surgery to freeze and destroy cancer cells. Radiation treatment. Types of radiation treatment include: ?External beam radiation. This type aims beams of radiation from outside the body at the prostate to destroy cancerous cells. ?Brachytherapy. This type uses radioactive needles, seeds, wires, or tubes that are implanted into the prostate gland. Like external beam radiation, brachytherapy destroys cancerous cells. An advantage is that this type of radiation limits the damage to surrounding tissue and has fewer side effects. High-intensity, focused ultrasonography. This treatment destroys cancer cells by delivering high-energy ultrasound waves to the cancerous cells. Chemotherapy medicines. This treatment kills cancer cells or stops them from multiplying. Hormone treatment. This treatment involves taking medicines that act on one of the male hormones (testosterone): ?By stopping your body from producing testosterone. ?By blocking testosterone from reaching cancer cells. Follow these instructions at home: Take tawh-uke-ixcbxox and prescription medicines only as told by your health care provider. Maintain a healthy diet. Get plenty of sleep. Consider joining a support group for men who have prostate cancer. Meeting with a support group may help you learn to cope with the stress of having cancer. Keep all follow-up visits as told by your health care provider. This is important. If you have to go to the hospital, notify your cancer specialist (oncologist). Treatment for prostate cancer may affect sexual function. Continue to have intimate moments with your partner. This may include touching, holding, hugging, and caressing. Contact a health care provider if: You have trouble urinating. You have blood in your urine. You have pain in your hips, back, or chest. Get help right away if: You have weakness or numbness in your legs. You cannot control urination or your bowel movements (incontinence). You have trouble breathing. You have sudden chest pain. You have chills or a fever. Summary The prostate is a walnut-sized gland that is involved in the production of semen. It is located below a man's bladder, in front of the rectum. Prostate cancer is the abnormal growth of cells in the prostate gland. Treatment for this condition depends on several factors, including the stage of the cancer, your age, personal preferences, and your overall health. Talk with your health care provider about treatment options that are recommended for you. Consider joining a support group for men who have prostate cancer. Meeting with a support group may help you learn to cope with the stress of having cancer. This information is not intended to replace advice given to you by your health care provider. Make sure you discuss any questions you have with your health care provider. Document Released: 02/15/2006 Document Revised: 01/28/2018 Document Reviewed: 10/26/2016 [email or web address] Patient Education [employer]. Follow Up Care 12/05/2021 09:13:28 With:CORWIN GUILLORY, Jaspreet Bhatt, URL Address: [address] [place] [id number]- When: Unknown [facility] 01-30-2022 Note [facility] Subjective Black Yates is a 56 y.o. year old male patient being seen for Coronary Artery Disease, Hypertension, and Hyperlipidemia Patient here for 1 year follow up CAD, hypertension, and hyperlipidemia. Had labs and ECG in Oct 2021 prior to urologic procedure. Was diagnosed with early prostate cancer at that time. Denies chest pain and SOB. Doing well from cardiac perspective. Patient Active Problem List Diagnosis Coronary atherosclerosis Dizziness and giddiness Essential hypertension Hyperlipidemia Old myocardial infarction Family History Family history unknown: Yes Social History Tobacco Use Smoking status: Never Smokeless tobacco: Never Substance Use Topics Alcohol use: Not Currently Drug use: Never Black is here for follow up on coronary artery disease s/p stenting of the LAD, Cx, and RCA (November 2010) and hypertension and hyperlipidemia. He has been doing well with no symptoms of chest pain or shortness of breath. No dizziness. He exercises with no symptoms. He plays baseball and basketball with no issues. He developed cough on dionte inhibitor and is currently on losartan. Review of Systems Musculoskeletal: Positive for back pain. All other systems reviewed and are negative. Objective Visit Vitals BP 129/83 (BP Location: Left arm, Patient Position: Sitting) Pulse 63 Ht 1.829 m (6') Wt 93.4 kg (206 lb) SpO2 95% BMI 27.94 kg/m??? Smoking Status Never BSA 2.18 m??? Physical Exam Constitutional: Appearance: He is well-developed. He is not ill-appearing. HENT: Head: Normocephalic and atraumatic. Nose: Nose normal. Eyes: General: No scleral icterus. Pupils: Pupils are equal, round, and reactive to light. Neck: Thyroid: No thyromegaly. Vascular: No JVD. Cardiovascular: Rate and Rhythm: Normal rate and regular rhythm. Pulses: Radial pulses are 2+ on the right side and 2+ on the left side. Heart sounds: Normal heart sounds. No murmur heard. No friction rub. No gallop. Pulmonary: Effort: Pulmonary effort is normal. No respiratory distress. Breath sounds: Normal breath sounds. No wheezing or rales. Chest: Chest wall: No tenderness. Abdominal: General: Bowel sounds are normal. There is no distension. Palpations: Abdomen is soft. Tenderness: There is no abdominal tenderness. Musculoskeletal: General: No swelling. Cervical back: Neck supple. Skin: General: Skin is warm and dry. Neurological: General: No focal deficit present. Mental Status: He is alert and oriented to person, place, and time. Psychiatric: Mood and Affect: Mood normal. Behavior: Behavior is cooperative. Judgment: Judgment normal. Allergies No Known Allergies Medications Current Outpatient Medications: aspirin 81 mg EC tablet, Take 1 tablet every day by oral route., Disp: , Rfl: atorvastatin (Lipitor) 40 mg tablet, Take 1 tablet (40 mg) by mouth in the morning., Disp: 90 tablet, Rfl: 3 losartan (Cozaar) 25 mg tablet, Take 1 tablet by mouth in the morning., Disp: , Rfl: metoprolol tartrate (Lopressor) 25 mg tablet, Take 1 tablet by mouth in the morning and at bedtime., Disp: , Rfl: nitroglycerin (Nitrostat) 0.4 mg SL tablet, Place 1 tablet by sublingual route for 30 days., Disp: , Rfl: Recent Labs No visits with results within 6 Month(s) from this visit. Latest known visit with results is: No results found for any previous visit. Blood testing 11/25/2021: Hemoglobin 13.7, platelets 225, potassium 3.8, BUN 19, creatinine 1.0. Blood testing 10/16/2019: Potassium 4.1, BUN 17, creatinine 0.9, HDL 52, cholesterol 161, triglycerides 168, LDL 75, LFTs normal. Lipid profile 08/27/2015 showed LDL 69, TG 71. His LDL was 75 in August 2013. Imaging and other tests Echocardiogram 11/09/2019: EF 63%, no RWMA, normal diastolic function, normal RV size and function, unable to assess right sided pressures, no significant valvular abnormalities ECG 08/20/2014 showed normal sinus rhythm. ECG 11/25/2021: Sinus rhythm. Assessment/Plan Diagnoses and all orders for this visit: Coronary artery disease involving [place] coronary artery of [place] heart without angina pectoris Mixed hyperlipidemia - Lipid panel; Future Primary hypertension Status post insertion of drug eluting coronary artery stent I think that he is doing well with no evidence of active cardiac problems. His blood pressure and heart rate are well controlled. He has no symptoms on exertion and he exercises regularly. I will check lipids. He was recently diagnosed with prostate cancer and is being monitored for that. I will keep same medications and see him back in 1 year. Follow up in about 1 year (around 01/30/2023). [facility] 12-05-2021 Hospital Discharge instructions Patient Education 12/05/2021 08:24:36 Prostate Cancer Prostate Cancer The prostate is a walnut-sized gland that is involved in the production of semen. It is located below a man's bladder, in front of the rectum. Prostate cancer is the abnormal growth of cells in the prostate gland. What are the causes? The exact cause of this condition is not known. What increases the risk? This condition is more likely to develop in men who: Are older than age 65. Are -Luxembourger. Are obese. Have a family history of prostate cancer. Have a family history of breast cancer. What are the signs or symptoms? Symptoms of this condition include: A need to urinate often. Weak or interrupted flow of urine. Trouble starting or stopping urination. Inability to urinate. Pain or burning during urination. Painful ejaculation. Blood in urine or semen. Persistent pain or discomfort in the lower back, lower abdomen, hips, or upper thighs. Trouble getting an erection. Trouble emptying the bladder all the way. How is this diagnosed? This condition can be diagnosed with: A digital rectal exam. For this exam, a health care provider inserts a gloved finger into the rectum to feel the prostate gland. A blood test called a prostate-specific antigen (PSA) test. An imaging test called transrectal ultrasonography. A procedure in which a sample of tissue is taken from the prostate and examined under a microscope (prostate biopsy). Once the condition is diagnosed, tests will be done to determine how far the cancer has spread. This is called staging the cancer. Staging may involve imaging tests, such as: A bone scan. A CT scan. A PET scan. An MRI. The stages of prostate cancer are as follows: Stage I. At this stage, the cancer is found in the prostate only. The cancer is not visible on imaging tests and it is usually found by accident, such as during a prostate surgery. Stage II. At this stage, the cancer is more advanced than it is in stage I, but the cancer has not spread outside the prostate. Stage III. At this stage, the cancer has spread beyond the outer layer of the prostate to nearby tissues. The cancer may be found in the seminal vesicles, which are near the bladder and the prostate. Stage IV. At this stage, the cancer has spread other parts of the body, such as the lymph nodes, bones, bladder, rectum, liver, or lungs. How is this treated? Treatment for this condition depends on several factors, including the stage of the cancer, your age, personal preferences, and your overall health. Talk with your health care provider about treatment options that are recommended for you. Common treatments include: Observation for early stage prostate cancer (active surveillance). This involves having exams, blood tests, and in some cases, more biopsies. For some men, this is the only treatment needed. Surgery. Types of surgeries include: ?Open surgery. In this surgery, a larger incision is made to remove the prostate. ?A laparoscopic prostatectomy. This is a surgery to remove the prostate and lymph nodes through several, small incisions. It is often referred to as a minimally invasive surgery. ?A robotic prostatectomy. This is a surgery to remove the prostate and lymph nodes with the help of a robotic arm that is controlled by a computer. ?Orchiectomy. This is a surgery to remove the testicles. ?Cryosurgery. This is a surgery to freeze and destroy cancer cells. Radiation treatment. Types of radiation treatment include: ?External beam radiation. This type aims beams of radiation from outside the body at the prostate to destroy cancerous cells. ?Brachytherapy. This type uses radioactive needles, seeds, wires, or tubes that are implanted into the prostate gland. Like external beam radiation, brachytherapy destroys cancerous cells. An advantage is that this type of radiation limits the damage to surrounding tissue and has fewer side effects. High-intensity, focused ultrasonography. This treatment destroys cancer cells by delivering high-energy ultrasound waves to the cancerous cells. Chemotherapy medicines. This treatment kills cancer cells or stops them from multiplying. Hormone treatment. This treatment involves taking medicines that act on one of the male hormones (testosterone): ?By stopping your body from producing testosterone. ?By blocking testosterone from reaching cancer cells. Follow these instructions at home: Take moxg-mio-ipgdgme and prescription medicines only as told by your health care provider. Maintain a healthy diet. Get plenty of sleep. Consider joining a support group for men who have prostate cancer. Meeting with a support group may help you learn to cope with the stress of having cancer. Keep all follow-up visits as told by your health care provider. This is important. If you have to go to the hospital, notify your cancer specialist (oncologist). Treatment for prostate cancer may affect sexual function. Continue to have intimate moments with your partner. This may include touching, holding, hugging, and caressing. Contact a health care provider if: You have trouble urinating. You have blood in your urine. You have pain in your hips, back, or chest. Get help right away if: You have weakness or numbness in your legs. You cannot control urination or your bowel movements (incontinence). You have trouble breathing. You have sudden chest pain. You have chills or a fever. Summary The prostate is a walnut-sized gland that is involved in the production of semen. It is located below a man's bladder, in front of the rectum. Prostate cancer is the abnormal growth of cells in the prostate gland. Treatment for this condition depends on several factors, including the stage of the cancer, your age, personal preferences, and your overall health. Talk with your health care provider about treatment options that are recommended for you. Consider joining a support group for men who have prostate cancer. Meeting with a support group may help you learn to cope with the stress of having cancer. This information is not intended to replace advice given to you by your health care provider. Make sure you discuss any questions you have with your health care provider. Document Released: 02/15/2006 Document Revised: 01/28/2018 Document Reviewed: 10/26/2016 LOYAL3 Patient Education 2020 [employer]. Follow Up Care 10/29/2021 16:32:33 With:CORWIN GUILLORY, Jaspreet Bhatt, URL Address: [address] [place] [id number]- When: Unknown [facility] 11-25-2021 Note EXAMINATION: XR CHES T 2 V HISTORY: Pre-surgery evaluation COMPARISON: No relevant comparison available. TECHNIQUE: PA and lateral FINDINGS: LUNGS: No significant pulmonary parenchymal abnormalities. VASCULATURE: No increased pulmonary vasculature. PLEURA: No pneumothorax, effusion, or pleural thickening. CARDIAC: No cardiomegaly or cardiac silhouette abnormality. MEDIASTINUM: No visible mass or adenopathy. BONES: Mild degenerative disc disease and spondylosis without visible acute abnormalities. OTHER: Negative. IMPRESSION: No acute disease. Electronically authenticated by: NELLIE CHEUNG Date: 2021-11-25 11:55 [facility] 10-03-2021 Hospital Discharge instructions Patient Education 10/03/2021 10:11:13 Benign Prostatic Hyperplasia Benign Prostatic Hyperplasia Benign prostatic hyperplasia (BPH) is an enlarged prostate gland that is caused by the normal aging process and not by cancer. The prostate is a walnut-sized gland that is involved in the production of semen. It is located in front of the rectum and below the bladder. The bladder stores urine and the urethra is the tube that carries the urine out of the body. The prostate may get bigger as a man gets older. An enlarged prostate can press on the urethra. This can make it harder to pass urine. The build-up of urine in the bladder can cause infection. Back pressure and infection may progress to bladder damage and kidney (renal) failure. What are the causes? This condition is part of a normal aging process. However, not all men develop problems from this condition. If the prostate enlarges away from the urethra, urine flow will not be blocked. If it enlarges toward the urethra and compresses it, there will be problems passing urine. What increases the risk? This condition is more likely to develop in men over the age of 50 years. What are the signs or symptoms? Symptoms of this condition include: Getting up often during the night to urinate. Needing to urinate frequently during the day. Difficulty starting urine flow. Decrease in size and strength of your urine stream. Leaking (dribbling) after urinating. Inability to pass urine. This needs immediate treatment. Inability to completely empty your bladder. Pain when you pass urine. This is more common if there is also an infection. Urinary tract infection (UTI). How is this diagnosed? This condition is diagnosed based on your medical history, a physical exam, and your symptoms. Tests will also be done, such as: A post-void bladder scan. This measures any amount of urine that may remain in your bladder after you finish urinating. A digital rectal exam. In a rectal exam, your health care provider checks your prostate by putting a lubricated, gloved finger into your rectum to feel the back of your prostate gland. This exam detects the size of your gland and any abnormal lumps or growths. An exam of your urine (urinalysis). A prostate specific antigen (PSA) screening. This is a blood test used to screen for prostate cancer. An ultrasound. This test uses sound waves to electronically produce a picture of your prostate gland. Your health care provider may refer you to a specialist in kidney and prostate diseases (urologist). How is this treated? Once symptoms begin, your health care provider will monitor your condition (active surveillance or watchful waiting). Treatment for this condition will depend on the severity of your condition. Treatment may include: Observation and yearly exams. This may be the only treatment needed if your condition and symptoms are mild. Medicines to relieve your symptoms, including: ?Medicines to shrink the prostate. ?Medicines to relax the muscle of the prostate. Surgery in severe cases. Surgery may include: ?Prostatectomy. In this procedure, the prostate tissue is removed completely through an open incision or with a laparoscope or robotics. ?Transurethral resection of the prostate (TURP). In this procedure, a tool is inserted through the opening at the tip of the penis (urethra). It is used to cut away tissue of the inner core of the prostate. The pieces are removed through the same opening of the penis. This removes the blockage. ?Transurethral incision (TUIP). In this procedure, small cuts are made in the prostate. This lessens the prostate's pressure on the urethra. ?Transurethral microwave thermotherapy (TUMT). This procedure uses microwaves to create heat. The heat destroys and removes a small amount of prostate tissue. ?Transurethral needle ablation (TUNA). This procedure uses radio frequencies to destroy and remove a small amount of prostate tissue. ?Interstitial laser coagulation (ILC). This procedure uses a laser to destroy and remove a small amount of prostate tissue. ?Transurethral electrovaporization (TUVP). This procedure uses electrodes to destroy and remove a small amount of prostate tissue. ?Prostatic urethral lift. This procedure inserts an implant to push the lobes of the prostate away from the urethra. Follow these instructions at home: Take evlc-shq-vywrjru and prescription medicines only as told by your health care provider. Monitor your symptoms for any changes. Contact your health care provider with any changes. Avoid drinking large amounts of liquid before going to bed or out in public. Avoid or reduce how much caffeine or alcohol you drink. Give yourself time when you urinate. Keep all follow-up visits as told by your health care provider. This is important. Contact a health care provider if: You have unexplained back pain. Your symptoms do not get better with treatment. You develop side effects from the medicine you are taking. Your urine becomes very dark or has a bad smell. Your lower abdomen becomes distended and you have trouble passing your urine. Get help right away if: You have a fever or chills. You suddenly cannot urinate. You feel lightheaded, or very dizzy, or you faint. There are large amounts of blood or clots in the urine. Your urinary problems become hard to manage. You develop moderate to severe low back or flank pain. The flank is the side of your body between the ribs and the hip. These symptoms may represent a serious problem that is an emergency. Do not wait to see if the symptoms will go away. Get medical help right away. Call your local emergency services (911 in the [place] Do not drive yourself to the hospital. Summary Benign prostatic hyperplasia (BPH) is an enlarged prostate that is caused by the normal aging process and not by cancer. An enlarged prostate can press on the urethra. This can make it hard to pass urine. This condition is part of a normal aging process and is more likely to develop in men over the age of 50 years. Get help right away if you suddenly cannot urinate. This information is not intended to replace advice given to you by your health care provider. Make sure you discuss any questions you have with your health care provider. Document Released: 02/15/2006 Document Revised: 01/10/2019 Document Reviewed: 03/22/2017 [email or web address] Patient Education 2020 [employer]. Follow Up Care 09/22/2021 15:51:55 With:Jaspreet ARVIZU MD, URL Address: [address] [place], [place] [id number]- When: Unknown [facility] Evaluation + Plan note No data available for this section [facility] Evaluation + Plan note Future Appointments Appointment Date:12/12/2021 09:15:00 AM Scheduled Provider:Jaspreet ARVIZU MD Location:[facility] Appointment Type:URO Office Visit [facility] Evaluation + Plan note Future Appointments Appointment Date:04/10/2022 09:45:00 AM Scheduled Provider:Jasp[facility]VIZU MD [facility] App[facility] Type:URO Office Visit Diagnostic Tests PendingPSA Total 01/29/22 [facility] Evaluation + Plan note Future Appointments Appointment Date:08/10/2022 11:15:00 AM Scheduled Provider:Jaspreet ARVIZU MD [facility] App[facility] Type:URO Office Visit Diagnostic Tests PendingPSA Total 06/29/22 [facility] Evaluation + Plan note Future Appointments Appointment Date:01/25/2023 10:45:00 AM Scheduled Provider:Jaspreet ARVIZU MD [facility] App[facility] Type:URO Office Visit [facility] Evaluation + Plan note Future Appointments Appointment Date:08/02/2023 10:30:00 AM Scheduled Provider:Jaspreet ARVIZU MD [facility] Appointment Type:URO Office Visit Diagnostic Tests PendingPSA Total 06/30/23 [facility] Evaluation note No assessment inform ation available [facility] Work Phone: Hospital Discharge instructions No data available for this section [facility] Progress note No data available for this section [facility] Summary Purpose Family History No Family History Records FoundNo Family History Records Found No data available for this section No Family History Records Found No data available for this section No Family History Records Found Advance Directives No Advanced Directives Records Found Advance Directive Response Recorded Date/ Time Advance Directives No October 17, 2021 3:16pm Chief Complaint and Reason for Visit Chief Complaint Elevated PSA Additional Source Comments Care Team (unrecognized sect ion and content) Team Status: Inactive Member Role Status Dates Jaspreet Arvizu MD Attending Provider Active Bladimir Chawla MD Primary Care Provider Active Team Status: Active Member Role Status Dates Bladimir Chawla MD Primary Care Provider Active (unrecognized sect ion and content) No Status Records FoundNo Status Records FoundNo Status Records FoundNo Status Records Found INFORMATION SOURCE (unrecogn ized section and content) DATE CREATED AUTHOR 10/29/[address] [facility] DATE CREATED AUTHOR AUTHOR'S ORGANIZ ATION 04/08/2022 [facility] DATE CREATED AUTHOR AUTHOR'S ORGANIZ ATION 01/08/2023 [facility] DATE CREATED AUTHOR AUTHOR'S ORGANIZ ATION 02/01/2023 [facility] Goals (unrecognized section and content) Goals may be documented in a n alternate section FOR RECORDS PERTAINING TO PATIENTS WHO ARE OR HAVE BEEN ENROLLED IN A CHEMICAL DEPENDENCY/SUBSTANCEABUSE PROGRAM, SOME INFORMATION MAY BE OMITTED. This clinical summary was aggregated from multiple sources. Caution should be exercised in using it in the provision of clinical care. This summary normalizes information from multiple sources, and as a consequence, information in this document may materially change the coding, format and clinical context of patient data. In addition, data may be omitted in some cases. CLINICAL DECISIONS SHOULD BE BASED ON THE PRIMARY CLINICAL RECORDS. [employer] [facility]. provides no warranty or guarantee of the accuracy or completeness of information in this document.
[2023-07-30 15:54] LABS: Prostate Specific Antigen Dx 2.74 ng/mL (<=4.00)
== END 2023-07-30 14:45 | disposition home or self-care (01) ==
LOC: LAB 14:47
PROVIDERS: PCP Family Medicine; Visit Provider Urology
DX: N40.1 Benign prostatic hyperplasia with lower urinary tract symptoms (principal); C61 Malignant neoplasm of prostate
CPT/HCPCS: 36415; 84153

== ENCOUNTER 2024-01-12 10:15 | Outpatient (OUT) | payer OTHER, SELFPAY ==
--- OUTSIDE RECORDS SUMMARY | 2024-01-12 10:32 | XMS_ITS | CCD ---
Author Organization [facility] Care Team Providers Care Paper Hanger Name Role Phone Bladimir Chawla Primary Care Physician [phone] MD Jaspreet Arvizu Attending Provider MD Bladimir Chawla Primary Care Provider [phone] SHANNON, DR ANDERSON Admitting Unavailable MOUKARBEL, DR ANDERSON Attending Unavailable HOY, DR DE LEON Primary Care Unavailable MOUKAESSENCE, DR ANDERSON Consulting Unavailable ARVIZU, DR ROTHMAN Admitting Unavailable ARVIZU, DR ROTHMAN Attending Unavailable HOY, DR DE LEON Primary Care Unavailable ARVIZU, DR ROTHMAN Consulting Unavailable ARVIZU, DR ROTHMAN Admitting Unavailable ARVIZU, DR ROTHMAN Attending Unavailable HOY, DR DE LEON Primary Care Unavailable ARVIZU, DR ROTHMAN Consulting Unavailable ARVIZU, DR ROTHMAN Admitting Unavailable ARVIZU, DR ROTHMAN Attending Unavailable HOY, DR DE LEON Primary Care Unavailable ARVIZU, DR ROTHMAN Consulting Unavailable WEST, DR NELLIE Grande Consulting Unavailable ARVIZU, DR ROTHMAN Admitting Unavailable ARVIZU, DR ROTHMAN Attending Unavailable HOY, DR DE LEON Primary Care Unavailable ARVIZU, DR ROTHMAN Consulting Unavailable SHARP, CAITLIN Consulting Unavailable GEMBUS, MARTY Consulting Unavailable GLENDA ARANA Admitting Unavailable GLENDA ARANA Attending Unavailable HOY, DR DE LEON Primary Care Unavailable MOUKAJUSTIN LOWRY Attending Unavailable GLENDA ARANA Attending Unavailable Jaspreet ARVIZU Attending Unavailable Jaspreet ARVIZU Attending Unavailable ARVIZU, Jaspreet Bhatt Attending Unavailable ARVIZUJaspreet Attending Unavailable ARVIZUJaspreet Attending Unavailable Unavailable Primary Care Provider UnavailSTEWART Tirado Attending Unavailable Medications Current Medications Medication Drug Class(es) Dates Sig (Normalized) Sig (Original) acetaminophen 325 mg / HYDROcodone bitartrate 7.5 mg oral tablet (3 sources) Opioid Agonist Start: 12-08-2022 take 1 tablet by mouth once [place] 325 mg-7.5 mg oral tablet 1 tab(s), [...] Dosing Start Date: 10/30/21 Status: Ordered Aspirin (9 sources) Platelet Aggregation Inhibitor, Nonsteroidal Anti-inflammatory Drug Start: 04-19-2019 aspirin 81 mg, Ch ewed, Daily, Refills(s) 0, Blood Thinner Start Date: 04/19/19 Status: Ordered ASPIRIN 81 MG ch ewable tablet 1 (one) time each day at the same time Active atorvastatin (10 sources) HMG-CoA Reductase Inhibitor Start: 01-29-2023 ATORVASTATIN CALCIUM 40 MG TABLET ATORVASTATIN CALCIUM 40 MG TABLET Start Date: 01/29/23 Status: Ordered Start: 04-19-2019 take 40 mg by mouth once daily Lipitor 40 mg, Oral, Daily, Refills(s) 0, High cholesterol Start Date: 04/19/19 Status: Ordered Bee Pollen (7 sources) Start: 04-15-2020 take 1 capsule by mouth once daily Bee Pollen Bee Pollen, 1 capsule, Oral, Daily, Prophylaxis Start Date: 04/15/20 Status: Ordered lidocaine 0.05 mg/mg medicated patch (2 sources) Antiarrhythmic, Amide Local Anesthetic Start: 12-26-2023 lidocaine (Lidoderm) 5 % patch APPLY 1 PATCH TOPICALLY ONCE DAILY FOR 7 DAYS INSTR:REMOVE PATCHES AFTER 12 HOURS 12/26/2023 Active lisinopril 5 mg oral tablet (2 sources) Angiotensin Converting Enzyme Inhibitor take 1 tablet by mouth once daily lisinopril 5 MG tablet Take 1 tablet by mouth Daily Active losartan potassium 25 mg oral tablet (9 sources) Angiotensin 2 Receptor Nagi Start: 10-03-2021 take 1 tablet by mouth once daily losartan (Cozaar) 25 MG tablet Take 1 tablet by mouth Daily 01/06/2023 Active Metoprolol (12 sources) beta-Adrenergic Nagi Start: 04-10-2022 METOPROLOL TARTRATE 25 MG TABLET METOPROLOL TARTRATE 25 MG TABLET Start Date: 04/10/22 Status: Ordered Start: 04-19-2019 take 25 mg by mouth twice philip y Lopressor 25 mg, Oral, BID, Refills(s) 0, High blood pressure Start Date: 04/19/19 Status: Ordered Misc Medication (3 sources) Start: 04-10-2022 Misc Medication Start Date: 04/10/22 Status: Ordered Multiple Vitamin (Multi-Vitamin) tablet (2 sources) take 1 tablet by mouth in the morning Multiple Vitamin (Multi-Vitamin) tablet Take 1 tablet by mouth in the morning. Active Multivitamin, Therapeutic w/ Minerals (7 sources) Start: 04-15-2020 take 1 tablet by mouth once daily Multivitamin, Therapeutic w/ Minerals 1 tab(s), Oral, Daily, Prophylaxis Start Date: 04/15/20 Status: Ordered nitroglycerin 0.4 mg sublingual tablet (4 sources) Nitrate Vasodilator Start: 01-29-2023 nitroglycerin 0.4 mg sublingual Tab 0.4 mg = 1 tab(s), SubLingual, q5min, PRN for chest pain, # 100 tab(s), Refills(s) 0 Start Date: 01/29/23 Status: Ordered Start: 01-06-2023 nitroglycerin (Nitrostat) 0.[address] 1 tablet by sublingual route for 30 days. 01/06/2023 Active Shark cartilage extract (7 sources) Start: 04-15-2020 take 1 tablet by mouth once daily Shark Cartilage Shark Cartilage, 1 Tablet, Oral, Daily, Prophylaxis Start Date: 04/15/20 Status: Ordered Vitamin C 500 mg Tab (7 sources) Start: 04-15-2020 take 1 tablet by mouth once daily Vitamin C 500 mg Tab 500 mg = 1 tab(s), Oral, Daily, Prophylaxis Start Date: 04/15/20 Status: Ordered zinc gluconate 50 mg oral tablet (7 sources) Start: 04-15-2020 take 1 tablet by mouth once daily zinc gluconate 50 mg oral tablet = 1 tab(s), Oral, Daily, Prophylaxis Start Date: 04/15/20 Status: Ordered Completed/Discontinued Medications Medication Drug Class(es) Dates Sig (Normalized) Sig (Original) tadalafil 10 mg oral tablet (7 sources) Phosphodiesterase 5 Inhibitor Start: 06-17-2023 take 2 tablets by mouth every twenty-four hours tadalafil 10 mg Tab 10 mg = 1 tab(s), Oral, As Directed, PRN for erectile dysfunction, Take 1 tab by mouth 1 hour prior to sexual activity as needed. Don't exceed 2 tabs in a 24 hour period., # 30 tab(s), Refills(s) 5, Pharmacy: [id number], 184, cm, 01/29/23 11:52:00 EST, Height/Length Dosing, 91, kg, 01/29/23 11:52:00 EST, Weight Dosing Start Date: 06/17/23 Status: Ordered Start: 10-20-2022 take 2 tablets by [facility] every twenty-four hours tadalafil 10 mg Tab 10 mg = 1 tab(s), Oral, As Directed, PRN for erectile dysfunction, Take 1 tab by mouth 1 hour prior to sexual activity as needed. Don't exceed 2 tabs in a 24 hour period., # 30 tab(s), Refills(s) 5, Pharmacy: [id number], 184, cm, 08/10/22 11:29:00 EDT, Height/Length Dosing, 88, kg, 08/10/22 11:29:00 EDT, Weight Dosing Start Date: 10/20/22 Status: Ordered Start: 12-09-2021 take 2 tablets by [facility] every twenty-four hours tadalafil 10 mg Tab 10 mg = 1 tab(s), Oral, As Directed, PRN for erectile dysfunction, Take 1 tab by mouth 1 hour prior to sexual activity as needed. Don't exceed 2 tabs in a 24 hour period., # 30 tab(s), Refills(s) 5, Pharmacy: [id number], 184, cm, 12/05/21... Start Date: 12/09/21 Status: Ordered Start: 09-23-2021 take 2 tablets by [facility] every twenty-four hours tadalafil 10 mg Tab 10 mg = 1 tab(s), Oral, As Directed, PRN for erectile dysfunction, Take 1 tab by mouth 1 hour prior to sexual activity as needed. Don't exceed 2 tabs in a 24 hour period., # 30 tab(s), Refills(s) 5, Pharmacy: [id number], 184, cm, 04/22/20... Start Date: 09/23/21 Status: Ordered Problems Active Problems Problem Classification Problem Date Documented Da te Episodic/Chronic Acute myocardial infarction (7 sources) Myocardial infarction 04-19-2019 Chronic Cancer of prostate (13 sources) Malignant neoplasm of prostate; Translations: [Malignant tumor of prostate] Onset: 12-05-2021 Chronic Cardiac dysrhythmias (2 sources) Palpitations; Translations: [Palpitations] Onset: 01-06-2023 Episodic Coronary atherosclerosis and other heart disease (11 sources) Coronary arteriosclerosis; Translations: [Old myocardial infarction] Onset: 12-03-2021 01-31-2020 Chronic Disorders of lipid metabolism (14 sources) Hyperlipidemia; Translations: [Mixed hyperlipidemia] Onset: 10-22-2021 04-19-2019 Chronic Essential hypertension (10 sources) Hypertensive disorder; Translations: [Essential (primary) hypertension] Onset: 12-03-2021 04-19-2019 Chronic Genitourinary symptoms and ill-defined conditions (8 sources) Post-micturition incontinence ; Translations: [Post-void dribbling] [...] Onset: 01-06-2023 Chronic Other male genital disorders (6 sources) Male erectile dysfunction, unspecified; Translations: [Erectile dysfunction] Onset: 10-03-2021 Chronic Other male genital disorders (7 sources) Impotence 04-24-2019 Chronic Other male genital disorders (7 sources) Disorder of male genital organ 04-19-2019 Episodic Other screening for suspected conditions (not mental disorders or infectious disease) (12 sources) Raised prostate specific antigen; Translations: [Elevated prostate specific antigen [PSA]] Onset: 10-03-2021 Episodic Residual codes; unclassified (7 sources) Family history of cancer of colon 03-29-2020 Episodic Sprains and strains (2 sources) Injury of superior glenoid labrum of shoulder joint; Translations: [Superior glenoid labrum lesion of right shoulder, subsequent encounter] 01-01-2024 Episodic Unclassified (1 source) CONTACT W/AND (SUSP) EXPOS COVID-19; Translations: [CONTACT W/AND (SUSP) EXPOS COVID-19] Onset: 11-27-2021 Past or Other Problems Problem Classification Problem Date Documented Da te Episodic/Chronic Coronary atherosclerosis and other heart disease (3 sources) Presence of coronary angioplasty implant and graft; Translations: [PRESENCE COR ANGPLSTY IMPLANT AND GRAFT] Onset: 12-03-2021 Episodic Other aftercare (1 source) terminal manager (current) use of anticoagulants; Translations: [MID LEVEL PROVIDER CURRNT USE ANTICOAGULANTS] Onset: 12-03-2021 Episodic Other aftercare (1 source) terminal manager (current) use of aspirin; Translations: [MID LEVEL PROVIDER CURRENT USE OF ASPIRIN] Onset: 12-03-2021 Episodic Other aftercare (1 source) Other half-way (current) drug therapy; Translations: [OTH MID LEVEL PROVIDER CURRENT DRUG THERAPY] Onset: 12-03-2021 Episodic Other male genital disorders (1 source) Disorder of prostate, unspecified; Translations: [DISORDER OF PROSTATE UNSPECIFIED] Onset: 12-03-2021 Episodic Results Test Name Value Interpretation Reference Range Facility [facility] Report[facility] 08-02-2023 Lab Reports [id number]#1.0 0TIFF Normal [facility] Patient Educationon 08-02-19 Patient Education Oncology Prostate Cancer Screening Prostate cancer screening is testing that is done to check for the presence of prostate cancer in men. The prostate gland is a walnut-sized gland that is located below the bladder and in front of the rectum in males. The function of the prostate is to add fluid to semen during ejaculation. Prostate cancer is one of the most common types of cancer in men. Who should have prostate cancer screening? Screening recommendations vary based on age and other risk factors, as well as between the professional organizations who make the recommendations. In general, screening is recommended if: ? You are age 50 to 70 and have an average risk for prostate cancer. You should talk with your health care provider about your need for screening and how often screening should be done. Because most prostate cancers are slow growing and will not cause , screening in this age group is generally reserved for men who have a 10- to 15-year life expectancy. ? You are younger than age 50, and you have these risk factors: ? Having a father, brother, or uncle who has been diagnosed with prostate cancer. The risk is higher if your family member's cancer occurred at an early age or if you have multiple family members with prostate cancer at an early age. ? Being a male who is Black or is of [place] or sub-Saharan descent. In general, screening is not recommended if: ? You are younger than age 40. ? You are between the ages of 40 and 49 and you have no risk factors. ? You are 70 years of age or older. At this age, the risks that screening can cause are greater than the benefits that it may provide. If you are at high risk for prostate cancer, your health care provider may recommend that you have screenings more often or that you start screening at a younger age. How is screening for prostate cancer done? The recommended prostate cancer screening test is a blood test called the prostate-specific antigen (PSA) test. PSA is a protein that is made in the prostate. As you age, your prostate naturally produces more PSA. Abnormally high PSA levels may be caused by: ? Prostate cancer. ? An enlarged prostate that is not caused by cancer (benign prostatic hyperplasia, or BPH). This condition is very common in older men. ? A prostate gland infection (prostatitis) or urinary tract infection. ? Certain medicines such as male hormones (like testosterone) or other medicines that raise testosterone levels. A rectal exam may be done as part of prostate cancer screening to help provide information about the size of your prostate gland. When a rectal exam is performed, it should be done after the PSA level is drawn to avoid any effect on the results. Depending on the PSA results, you may need more tests, such as: ? A physical exam to check the size of your prostate gland, if not done as part of screening. ? Blood and imaging tests. ? A procedure to remove tissue samples from your prostate gland for testing (biopsy). This is the only way to know for certain if you have prostate cancer. What are the benefits of prostate cancer screening? ? Screening can help to identify cancer at an early stage, before symptoms start and when the cancer can be treated more easily. ? There is a small chance that screening may lower your risk of dying from prostate cancer. The chance is small because prostate cancer is a slow-growing cancer, and most men with prostate cancer from a different cause. What are the risks of prostate cancer screening? The main risk of prostate cancer screening is diagnosing and treating prostate cancer that would never have caused any symptoms or problems. This is called overdiagnosisand overtreatment. PSA screening cannot tell you if your PSA is high due to cancer or a different cause. A prostate biopsy is the only procedure to diagnose prostate cancer. Even the results of a biopsy may not tell you if your cancer needs to be treated. Slow-growing prostate cancer may not need any treatment other than monitoring, so diagnosing and treating it may cause unnecessary stress or other side effects. Questions to ask your health care provider ? When should I start prostate cancer screening? ? What is my risk for prostate cancer? ? How often do I need screening? ? What type of screening tests do I need? ? How do I get my test results? ? What do my results mean? ? Do I need treatment? Where to find more information ? The [place] [employer]: www.cancer.org ? [place] [employer]: www.auanet.org Contact a health care provider if: ? You have difficulty urinating. ? You have pain when you urinate or ejaculate. ? You have blood in your urine or semen. ? You have pain in your back or in the area of your prostate. Summary ? Prostate cancer is a common type of cancer in men. The prostate gland is located below the bladder and in front of the rectum. This gland adds flu (more content not included)... Normal [facility] Urology Office/Clinic Noteon 08-02-2023 Urology Office/Clinic Note Chief Complaint 6m PSA HPI Staff 6 month f/u with PSA and EVELINA Dx: prostate cancer (ACTIVE SURVEILLANCE), BPH with urinary obstruction and impotence PSA: 05/22/20 - 1.76 09/29/21 - 2.38 04/06/22 - 3.26 08/04/22 - 3.68 07/30/23 - 2.74 MRI of prostate 10/22/21 - PI RADS 4, no evidence of lymphadenopathy. MRI fusion bx 11/27/21 - Path report shows Zoya 6 (3+3) in 3 cores, 20% of tissue or less involved. GG1. S/p TRUS/bx 01/14/23 - negative for malignancy. No signs of progression. *Tadalafil PRN therapy. Denies pain/burning and visible blood in urine. Occasional frequency w/fluid intake. q1-2hrs. Not bothersome. Still getting up 1-2x/night, depending on fluid intake prior to bed. Not bothersome. Denies all urinary concerns at this time. History of Present Illness Tests reviewed: reviewed UA, PSA I have reviewed the previous health record information and history for this patient from Dr. Arvizu. I have reviewed and verified the staff HPI to be accurate for this encounter. Review of Systems PHQ Score Initial [...] HPI. Physical Exam Vitals & Measurements HR: 68(Peripheral) RR: 16 BP: 132/81 HT: 72 in HT: 184 cm WT: 88.6 kg WT: 194.92 lb BMI: 26.17 General Appearance: alert, no distress, well nourished, well developed male. Genitourinary: normal scrotum, normal testes, normal urethra, normal epididymis, normal vas deferens/spermatic cord. Flank Pain: none. Bladder: nonpalpable. Prostate: normal prostate, estimated weight 35 gms, no hard nodule observed. Assessment/Plan 1. Prostate cancer (C61: Malignant neoplasm of prostate) ACTIVE SURVEILANCE. PSA: 05/22/20 - 1.76 09/29/21 - 2.38 04/06/22 - 3.26 08/04/22 - 3.68 07/30/23 - 2.74 MRI of prostate 10/22/21 - PI RADS 4, no evidence of lymphadenopathy. MRI fusion bx 11/27/21 - Zoya 6 (3+3) in 3 cores, 20% of tissue or less involved. GG1. S/p TRUS/bx 01/14/23 - negative for malignancy. No signs of progression. EVELINA: 35 gm, no nodules. PSA has decreased from prior. No indication for further intervention. Will continue to monitor level. -F/u in 6 mos w/ PSA 2. BPH with urinary obstruction (N40.1: Benign prostatic hyperplasia with lower urinary tract symptoms) UA today negative for blood and infection. Not currently taking any BPH meds. Not voicing any urinary habit complaints. 3. Impotence (N52.9: Male erectile dysfunction, unspecified) Tadalafil 10 mg prn. Follow-up With When Contact Information CORWIN GUILLORY, Jaspreet Bhatt, URL [facility] [address], [place] [address]- [phone] Additional Instructions: 6 mos w/ PSA Patient Education Prostate Cancer Screening I, Marcelina Cassidy, personally scribed for Dr. Arvizu on 08/02/2023 11:21:51. . Documentation recorded by the scribe, Marcelina Cassidy, accurately reflects the services(s) I performed and decisions made by me. Authenticated by Dr. Arvizu on 08/02/2023 11:23:20. Problem List/Past Medical History Ongoing BPH with [...] mg, Oral, BID losartan 25 mg Tab Multivitamin, Therapeutic w/ Minerals, 1 tab(s), Oral, [...] lifetime) Tobacco Use:. Never Smokeless Tobacco Use:. Dionisio (more content not included)... Normal [facility] Comment on above: Result Comment: Elec tronically Signed By: Jaspreet ARVIZU MD\.br\Date and Time Signed: 08/02/23 11:23 EDT\.br\Electronically Co-Signed By: Marcelina Cassidy\.br\Date and Time Co-Signed: 08/02/23 11:22 EDT Ambulatory Visit Summaryon 1 04-01-2022 Ambulatory Visit [...] with CORWIN GUILLORY, SACHI Ac When: Where: [address] [place] [address]- Medications What How Much When Instructions Unchanged [...] ovarian cancer (more content not included)... Normal [facility] Patient Educationon 01-30-20 Patient Education Oncology Prostate [...] under a microscope. This is called the Piercy score and the total score can range from 6?10, indicating how likely it is that the cancer will spread (metastasize) to other parts of the body. The higher the score, the greater the likelihood that the cancer will spread. ? Zoya 6 or lower: This indicates that the cancer cells look similar to normal prostate cells (well differentiated). ? Zoya 7: This indicates that the cancer cells [...] external be (more content not included)... Normal [facility] Urology Office/Clinic Noteon 01-29-2023 Urology Office/Clinic Note [...] fusion bx 11/27/21 - Path report shows Zoya 6 (3+3) in [...] prn. Follow-up With When Contact Information CORWIN GULILORY, Jaspreet Bhatt, URL [address] [place] [address]- Additional Instructions: 6 mos w/ PSA and [...] vacci (more content not included)... [facility] Comment on above: Result Comment: Elec tronically Signed By: Jaspreet ARVIZU MD\.br\Date and Time Signed: 01/29/23 12:47 EST\.br\Electronically Co-Signed By: Lizette Heller.br\Date and Time Co-Signed: 01/29/23 12:45 EST Pathology Noteon 01-25-2023 Pathology Note [id number]. 00TIFF [facility] RAD - Ultrasound Reporton RAD - Ultrasound Report [id number]#1.00 TIFF [facility] Operative Reporton Operative Report [id number]#1.00 TIFF [facility] Formson 01-07-2023 Forms [id number]#1.0 0TIFF [facility] Office Visiton 01-06-2023 Follow-up visit [id number] Black Yates 1965 M Date Provider Department Center 01/06/2023 GLENDA SHAFER Family History Family history unknown: Yes Level of Service:81666 [place] OFFICE/OUTPATIENT ESTABLISHED MOD MDM 30-39 MIN Reason for Visit and Comments: Pre-op Exam [495803] Coronary Artery Disease [187] Hypertension [431694] Hyperlipidemia [182] Normal [facility] RAD - MISCon 01-04-2023 RAD - MISC [id number]#1.0 0TIFF [facility] - MIS [id number] 0TIFF [facility] Consent for Procedure/Surger yon 12-10-2022 Consent for Procedure/Surgery [id number] 0TIFF [facility] Formson 12-10-2022 Forms [id number]#1.0 0TIFF [facility] Physician Orderon 12-10-2022 Physician Order [id number]#1.0 0TIFF [facility] Lab Reportson 08-17-2022 Lab Reports [id number]#1.0 0CD:127 [facility] Ambulatory Visit Summaryon 0 08-10-2022 Ambulatory Visit Summary GLORIABLACK :1965 Visit Date:08/10/2022 Ambulatory Visit Instructions Your Diagnosis Prostate cancer BPH with urinary obstruction Impotence Tests Performed Urnls Dip Stick Auto w/o Microscopy POC 87698 Your Care Team Attending Physician - Jaspreet ARVIZU MD Primary Care Physician - Bladimir Chawla MD This Is Your Medications List tadalafil (tadalafil [...] [facility] [address], [place] [address]- Medications What How Much When Instructions Unchanged [...] Urnls Dip Stick Auto w/o Microscopy POC 79954 (08/10/2022) Bilirubin Urine Dipstick - Negative Blood Urine Dipstick - Negative Glucose Urine Dipstick - Negative Ketones Urine Dipstick - Negative Leukocytes Urine Dipstick - Negative Nitrite Urine Dipstick - Negative Protein Urine Dipstick - Negative Specific [place] Urine Dipstick - 1.010 Urine Appearance Urine [...] men of (more content not included)... Normal [facility] Patient Educationon 08-11-19 Patient Education Oncology Prostate Cancer The prostate [...] under a microscope. This is called the Piercy score and the total score can range from 6?10, indicating how likely it is that the cancer will spread (metastasize) to other parts of the body. The higher the score, the greater the likelihood that the cancer will spread. ? Piercy 6 or lower: This indicates that the cancer cells look similar to normal prostate cells (well differentiated). ? Piercy 7: This indicates that the cancer cells [...] external be (more content not included)... Normal [facility] Urology Office/Clinic Noteon 08-10-2022 Urology Office/Clinic Note [...] fusion bx 11/27/21 - Path report shows Zoya 6 (3+3) in [...] anesthesia. Prophy abx should be sent to [facility]. 2. BPH with urinary obstruction (N40.1: Benign [...] Contact Information CORWIN GUILLORY, Jaspreet Bhatt, URL [facility] [address], [place] [address]- Additional Instructions: schedule TRUS/bx, PSA Patient Education [...] w/ Min (more content not included)... Normal [facility] Comment on above: Result Comment: Elec tronically Signed By: Jaspreet ARVIZU MD\.br\Date and Time Signed: 08/10/22 12:19 EDT\.br\Electronically Co-Signed By: Vicky Schafer\.br\Date and Time Co-Signed: 08/10/22 12:18 EDT Follow-Upon 01-30-2022 Follow-Up [id number] Black Yates 1965 M Date Provider [facility] 01/30/2022 JUSTIN THOMAS [facility] Family History Family history unknown: Yes Level of Service:83654 [place] OFFICE/OUTPATIENT ESTABLISHED LOW MDM 20-29 MIN Reason for Visit and Comments: Coronary Artery Disease [187] Hypertension [933557] Hyperlipidemia [182] Normal [facility] LIPID PROFILEon 01-30-2022 CHOL-HDL RATIO NORM SEE BELOW Normal [facility] Comment on above: Result Comment: 3.3 - 4.4 LOW RISK 4.4 - 7.1 AVERAGE RISK 7.1 - 11.0 MODERATE RISK >11.0 HIGH RISK Performed By: #### L IPID #### [facility] [address] [address] [address] Betzy Olivera Cholesterol [Mass/Vol] 144 mg/dL Normal <=200 [facility] Comment on above: Performed By: #### L IPID #### [facility] [address] [address] [address] Betzy Olivera Cholesterol in HDL [Mass/Vol] 45 mg/dL Normal 40-60 [facility] Comment on above: Performed By: #### L IPID #### [facility] [address] [address] [address] Betzy Olivera Cholesterol in LDL [Mass/Vol] 68.0 mg/dL Normal [facility] Comment on above: Performed By: #### L IPID #### [facility] [address] [address] [address] Betzy Olivera Cholesterol.total/ Cholesterol in HDL [Mass ratio] 3.2 {ratio} Normal [facility] Comment on above: Performed By: #### L IPID #### [facility] [address] [place] [address] Dr. Betzy Olivera HDL NORMAL > or = 60 mg/dl - LO W CARDIOVASCULAR RISK <40 mg/dl - HIGH CARDIOVASCULAR RISK Normal [facility] Comment on above: Performed By: #### L IPID #### [facility] [address] [place] [address] Dr. Betzy Olivera LDL CALC NORMAL SEE BELOW Normal [facility] Comment on above: Result Comment: <100 mg/dl OPTIMAL 100 - 129 mg/dl NEAR OR ABOVE OPTIMAL 130 - 159 mg/dl BORDERLINE HIGH 160 - 189 mg/dl HIGH >190 mg/dl VERY HIGH Performed By: #### L IPID #### [facility] [address] [place] [address] Dr. Betzy Olivera Triglyceride [Mass/Vol] 155 mg/dL Critically high <=150 [facility] Comment on above: Performed By: #### L IPID #### [facility] [address] [place] [address] Dr. Betzy Olivera VLDL CALC 31.0 mg/dL Normal [facility] Comment on above: Performed By: #### L IPID #### [facility] [address] [place] [address] Dr. Betzy Olivera CBC AUTO DIFFon 11-25-2021 BASO # 0.0 103/ul Normal 0.0-0.1 [facility] Comment on above: Performed By: #### C BC #### [facility] [address] [place] [address] Dr. Betzy Olivera Basophils/100 WBC (Bld) 0.6 % Normal 0.2-2.0 [facility] Comment on above: Performed By: #### C BC #### [facility] [address] [place] [address] Dr. Betzy Olivera EO # 0.3 103/ul Normal 0.0-0.7 [facility] Comment on above: Performed By: #### C BC #### [facility] [address] [place] [address] Dr. Betzy Olivera Eosinophils/100 WBC (Bld) 4.4 % Normal 0.9-7.0 [facility] Comment on above: Performed By: #### C BC #### [facility] [address] [place] [address] Dr. Betzy Olivera Erythrocyte distribution width (RBC) [Ratio] 12.2 % Normal 11.0-15.0 [facility] Comment on above: Performed By: #### C BC #### [facility] [address] [place] [address] Dr. Betzy Olivera Hematocrit (Bld) [Volume fraction] 40.4 % Critically low 42.0-54.0 [facility] Comment on above: Performed By: #### C BC #### [facility] [address] [place] [address] Dr. Betzy Olivera Hemoglobin (Bld) [Mass/Vol] 13.7 g/dL Critically low 14.0-18.0 [facility] Comment on above: Performed By: #### C BC #### [facility] [address] [place] [address] Dr. Betzy Olivera IG # 0.04 10e3/ul Critically high 0.00-0.03 [facility] Comment on above: Performed By: #### C BC #### [facility] [address] [place] [address] Dr. Betzy Olivera IG % 0.6 % Critically high 0.0-0.5 [facility] Comment on above: Performed By: #### C BC #### [facility] [address] [place] [address] Dr. Betzy Olivera LYMPH # 1.0 103/ul Critically low 1.2-3.8 [facility] Comment on above: Performed By: #### C BC #### [facility] [address] [place] [address] Dr. Betzy Olivera Lymphocytes/100 WBC (Bld) 16.4 % Critically low 20.5-60.0 [facility] Comment on above: Performed By: #### C BC #### [facility] [address] [place] [address] Dr. Betzy Olivera MANUAL DIFF REQ NO Normal [facility] Comment on above: Performed By: #### C BC #### [facility] [address] [place] [address] Dr. Betzy Olivera MCH (RBC) [Entitic mass] 29.5 pg Normal 25.9-34.0 [facility] Comment on above: Performed By: #### C BC #### [facility] [address] [place] [address] Dr. Betzy Olivera MCHC (RBC) [Mass/Vol] 33.9 g/dL Normal 29.9-35.2 [facility] Comment on above: Performed By: #### C BC #### [facility] [address] [place] [address] Dr. Betzy Olivera MCV (RBC) [Entitic vol] 87.1 fL Normal 80.0-94.0 [facility] Comment on above: Performed By: #### C BC #### [facility] [address] [place] [address] Dr. Betzy Olivera MONO # 0.6 103/ul Normal 0.3-0.8 [facility] Comment on above: Performed By: #### C BC #### [facility] [address] [place] [address] Dr. Betzy Olivera Monocytes/100 WBC (Bld) 9.9 % Normal 1.7-12.0 [facility] Comment on above: Performed By: #### C BC #### [facility] [address] [place] [address] Dr. Betzy Olivera NEUT # 4.3 103/ul Normal 1.4-6.5 [facility] Comment on above: Performed By: #### C BC #### [facility] [address] [place] [address] Dr. Betzy Olivera Neutrophils/100 WBC (Bld) 68.1 % Normal 43.0-75.0 [facility] Comment on above: Performed By: #### C BC #### [facility] [address] [place] [address] Dr. Betzy Olivera Platelet mean volume (Bld) [Entitic vol] 10.6 fL Normal 9.5-13.5 [facility] Comment on above: Performed By: #### C BC #### [facility] [address] [address] [address] Betzy Olivera PLT 225 103/ul Normal 150-450 [facility] Comment on above: Performed By: #### C BC #### [facility] [address] [address] [address] Betzy Olivera RBC 4.64 106/ul Critically low 4.70-6.10 [facility] Comment on above: Performed By: #### C BC #### [facility] [address] [address] [address] Betzy Olivera WBC 6.3 103/ul Normal 4.0-11.0 [facility] Comment on above: Performed By: #### C BC #### [facility] [address] [place] [address] Dr. Betzy Olivera Covid-19 PCR ([facility])on 10-31 SARS-CoV-2 (COVID-19) RNA KARLIE+probe Ql (Unsp spec) Not detected Normal NOT DETECTED [facility] Comment on above: Result Comment: This test is not yet approved or cleared by the [place] FDA. When there are no FDA-approved or cleared tests available, and other criteria are met, FDA can make tests available under an emergency access mechanism called an Emergency Use Authorization (EUA). The EUA for this test is supported by the Sales Office Assistant of Health and Human Service's (HHS's) declaration [...] consistent with SARS-CoV-2. Performed By: #### C VDTBH #### [facility] [address] [address] [address] Betzy Olivera PROF CHEM 8 (BAS METB)on Anion gap [Moles/Vol] 13.6 mmol/L Normal [facility] Comment on above: Performed By: #### B MP #### [facility] [address] [place] [address] Dr. Betzy Olivera Calcium [Mass/Vol] 8.8 mg/dL Normal 8.5-10.[address] [facility] Comment on above: Performed By: #### B MP #### [facility] [address] [address] [address] Betzy Olivera Chloride [Moles/Vol] 104 mmol/L Normal 98-107 [facility] Comment on above: Performed By: #### B MP #### [facility] [address] [place] [address] Dr. Betzy Olivera CO2 [Moles/Vol] 26.2 mmol/L Normal 21.0-32.0 [facility] Comment on above: Performed By: #### B MP #### [facility] [address] [place] [address] Dr. Betzy Olivera Creatinine [Mass/Vol] 1.00 mg/dL Normal 0.70-1.30 [facility] Comment on above: Performed By: #### B MP #### [facility] [address] [place] [address] Dr. Betzy Olivera EGFR-AF SERBIAN >60 Normal >=60 [facility] Comment on above: Performed By: #### B MP #### [facility] [address] [place] [address] Dr. Betzy Olivera EGFR-NON AF SERBIAN >60 Normal >=60 [facility] Comment on above: Performed By: #### B MP #### [facility] [address] [place] [address] Dr. Betzy Olivera Glucose [Mass/Vol] 115 mg/dL Critically high 74-106 [facility] Comment on above: Performed By: #### B MP #### [facility] [address] [place] [address] Dr. Betzy Olivera Potassium [Moles/Vol] 3.8 mmol/L Normal 3.5-5.1 [facility] Comment on above: Performed By: #### B MP #### [facility] [address] [address] [address] Betzy Olivera Sodium [Moles/Vol] 140 mmol/L Normal 136-[address] [facility] Comment on above: Performed By: #### B MP #### [facility] [address] [address] [address] Betzy Olivera Urea nitrogen [Mass/Vol] 19.0 mg/dL Critically high 7.0-18.0 [facility] Comment on above: Performed By: #### B MP #### [facility] [address] [place] [address] Dr. Betzy Olivera Urea nitrogen/Creatinin e [Mass ratio] 19.0 mg/mg Normal [facility] Comment on above: Performed By: #### B MP #### [facility] [address] [place] [address] Dr. Betzy Olivera PROTIMEon 11-25-2021 INR Coag (PPP) [Relative time] 1.04 {INR} Normal [facility] Comment on above: Performed By: #### P T, PTT #### [facility] [address] [place] [address] Dr. Betzy Olivera INR GUIDELINES SEE BELOW Normal [facility] Comment on above: Result Comment: [place] RED INR: 2.0 - 3.0 CONDITIONS NOT LISTED BELOW 2.5 - 3.5 FOR PROSTHETIC HEART VALVE REPLACEMENT 2.5 - 3.5 RECURRENT THROMBOSIS Performed By: #### P T, PTT #### [facility] [address] [place] [address] Dr. Betzy Olivera PT Coag (PPP) [Time] 11.2 s Normal 9.0-11.6 [facility] Comment on above: Performed By: #### P T, PTT #### [facility] [address] [place] [address] Dr. Betzy Olivera PTTon 11-25-2021 aPTT Coag (Bld) [Time] 30.7 s Normal 22.3-36.2 [facility] Comment on above: Performed By: #### P T, PTT #### [facility] [address] [address] [address] Betzy Olivera MR prostate wo/w conon 10-23 MR prostate wo/w con [facility] [place] [address] [place] [address] MRI Report Signed Patient: Black Yates MR#: [id number] : 1965 Acct:[id number] Age/Sex: 55 / M ADM Date: 10/22/21 Loc: MR Room: Type: [facility] CLI Attending Dr: Jaspreet Arvizu MD Copies to: [...] Hernández Jr., D.O.10/23/2021 12:32 PM Dictation Location: [facility]09 Transcribed By: [facility] 10/23/21 1232 Dictated By: Judd Hernández Jr, DO 10/23/21 1226 Signed By: 10/23/21 1232 [facility] Vital Signs Date Time Vital Sign Value Performing Clinician Vikyi yandel 08-02-2023 10:40-0400 Blood Pressure Location Jaspreet ARVIZU [facility] 08-02-2023 10:40-0400 Diastolic blood pressure 81 mm[Hg] Jaspreet ARVIZU [facility] 08-02-2023 10:40-0400 Heart rate 68 /min Jaspreet ARVIZU [facility] 08-02-2023 10:40-0400 Respiratory rate 16 /min Jaspreet ARVIZU [facility] 08-02-2023 10:40-0400 Systolic blood pressure 132 mm[Hg] Jaspreet ARVIZU [facility] 01-29-2023 11:49-0500 Blood Pressure Location Jaspreet ARVIZU [facility] 01-29-2023 11:49-0500 Diastolic blood pressure 72 mm[Hg] Jaspreet ARVIZU [facility] 01-29-2023 11:49-0500 Heart rate 80 /min Jaspreet ARVIZU [facility] 01-29-2023 11:49-0500 Respiratory rate 16 /min Jaspreet ARVIZU [facility] 01-29-2023 11:49-0500 Systolic blood pressure 127 mm[Hg] Jaspreet ARVIZU [facility] 12-05-2021 08:23-0400 Blood Pressure Location Jaspreet ARVIZU [facility] 12-05-2021 08:23-0400 Diastolic blood pressure 88 mm[Hg] Jaspreet ARVIZU [facility] 12-05-2021 08:23-0400 Heart rate 69 /min Jaspreet ARVIZU [facility] 12-05-2021 08:23-0400 Systolic blood pressure 120 mm[Hg] Jaspreet ARVIZU [facility] 10-03-2021 09:56-0400 Blood Pressure Location Jaspreet ARVIZU [facility] 10-03-2021 09:56-0400 Diastolic blood pressure 79 mm[Hg] Jaspreet ARVIZU [facility] 10-03-2021 09:56-0400 Heart rate 56 /min Jaspreet ARVIZU [facility] 10-03-2021 09:56-0400 Respiratory rate 16 /min Jaspreet ARVIZU [facility] [place] 10-03-2021 09:56-0400 Systolic blood pressure 122 mm[Hg] [facility] En[facility] Date Encounter Type Care Provider Facility Start: 01-31-2024 ambulatory Jaspreet ARVIZU Facili ty:[facility] [place] Start: 12-30-2023 End: 12-30-2023 Bamboo flowsheet Stewart Gill DO Work Phone: [facility] Start: 12-30-2023 End: 12-30-2023 Bamboo flowsheet Stewart Gill DO Work Phone: [facility] Start: 12-30-2023 End: 12-30-2023 Patient encounter procedure Stewart Gill DO Work Phone: [facility] Comment on above: Superior glenoid lab rum lesion of right shoulder, subsequent encounter (Primary Dx) Start: 12-30-2023 End: 12-30-2023 ambulatory STEWART GILL Not Available Start: 08-02-2023 End: 08-02-2023 ambulatory Jaspreet ARVIZU Facility:[facility] [place] Start: 08-02-2023 End: 08-02-2023 Patient encounter procedure [facility]VIZU [facility] Start: 01-29-2023 End: 01-29-2023 ambulatory Jaspreet ARVIZU Facility:[facility] [place] Start: 01-29-2023 End: 01-29-2023 Patient encounter procedure Jaspreet ARVIZU [facility] [place] Start: 01-14-2023 End: 01-14-2023 ambulatory Jaspreet ARVIZU Facility:CD:[id number] Start: 01-06-2023 End: 01-06-2023 ambulatory [facility] Start: 12-08-2022 End: 01-06-2023 Pre-admission assessment Jaspreet ARVIZU [facility] Start: 08-10-2022 End: 08-10-2022 ambulatory Jaspreet ARVIZU Facility:[facility] Start: 04-10-2022 End: 04-10-2022 Patient encounter procedure Jaspreet ARVIZU [facility] Start: 04-06-2022 End: 04-07-[address] JASPREET ARVIZU Facility:[facility] Start: 01-30-2022 End: 01-31-[address] JUSTIN ORTEGA Facility:[facility] Start: 01-30-2022 End: 01-30-2022 ambulatory [facility] Start: 12-05-2021 End: 12-05-2021 Patient encounter procedure Jaspreet ARVIZU [facility] Start: 11-27-2021 Encounter for preprocedural cardiovascular examination DR JASPREET ARVIZU [facility] Start: 11-27-2021 Encounter for preprocedural laboratory examination DR JASPREET ARVIZU [facility] Start: 11-27-2021 Encounter for preprocedural respiratory examination DR JASPREET ARVIZU [facility] Start: 11-27-2021 End: 11-27-[address] JASPREET ARVIZU Facility:[facility] Start: 11-25-2021 End: 11-26-[address] JASPREET ARVIZU Facility:[facility] Start: 11-25-2021 End: 11-26-2021 Encounter for preprocedural laboratory examination DR JASPREET ARVIZU Facility:[facility] Start: 10-29-2021 End: 11-26-2021 Pre-admission assessment aJspreet ARVIZU [facility] Start: 10-22-2021 End: 10-22-2021 Patient encounter procedure MD Jaspreet Arvizu Work Phone: [facility] [place] Start: 10-03-2021 End: 10-03-2021 Patient encounter procedure Jaspreet ARVIZU [facility] Start: 09-29-2021 End: 09-30-[address] JASPREET ARVIZU Facility:[facility] Start: 09-12-2021 ambulatory GLENDA YASMEEN Facility :[facility] Procedures Date Procedure Procedure Detail Performing Clinician Start: 01-14-2023 Transrectal biopsy o f prostate using ultrasound guidance Jaspreet ARVIZU Start: 04-06-[address] JUSTIN ORTEGA Comment on above: Performed By: #### P SAD #### [facility] [address] [place] [address] Dr. Betzy Olivera Start: 11-27-2021 MRI-US fusion guided transperineal biopsy of prostate Jaspreet ARVIZU Start: 11-27-2021 Ultrasonography by transrectal approach Jaspreet ARVIZU Start: 10-22-2021 MR prostate wo/w con MD Jaspreet Arvizu Work Phone: Start: 09-29-[address] JUSTIN ORTEGA Comment on above: Performed By: #### P SAD #### [facility] [address] [place] [address] Dr. Betzy Olivera Start: 04-15-2020 Colonoscopy Jaspreet [...] stent i n cardiac conduit Jaspreet ARVIZU Plan of Treatment Date Care Activity Detail Author Start: 12-30-2023 End: 12-30-2023 Patient encounter procedure 12/30/2023 1:00 PM EDT Office Visit [facility] [address] [place] [address] Stewart Gill DO [address] [place] [address] Arrived [facility] Comment on above: Arrived Start: 10-31-2023 Influenza vaccination Influenza Vacc ine (#1) [facility] Start: 1965 Screening for malign ant neoplasm of colon [facility] Immunizations Immunization Date Immunization Notes Care Provider Fa cility 07-02-2020 SARS-CoV-2 (COVID-19 ) Ad26 vaccine, recombinant Jaspreet ARVIZU [facility] NEGATED: Highlighted row has not occurred!04-22-2020 influenza virus vaccine, unspecified formulation Jaspreet ARVIZU [facility] Payers Date Payer Category Payer [facility] [id number] 1965 Unknown [id number] [id number] .2.593 1965 Unknown [id number] 2.16.840.1.227408.3.579 .2.593 1965 Unknown [id number] 2.16.840.1.233230.3.579 .2.593 1965 Unknown [id number] 2.16.840.1.200035.3.579 .2.593 1965 Unknown [id number] 2.16.840.1.613676.3.579 .2.593 1965 Unknown [id number] 2.16.840.1.123873.3.579 .2.593 1965 Unknown [id number] 2.16.840.1.751625.3.579 .2.727 1965 Unknown [id number] 2.16.840.1.318072.3.579 .2.727 1965 Unknown [id number] 2.16.840.1.389227.3.579 .2.727 1965 Unknown [id number] 2.16.840.1.399674.3.579 .2.727 1965 Unknown [id number] 2.16.840.1.158156.3.579 .2.727 1965 Unknown [id number] 2.16.840.1.818568.3.579 .2.1259 1961 Self-pay 1961 Unknown [id number] Social History Date Type Detail Facility Start: 03-29-2020 End: 12-30-2023 Tobacco smoking status Never smoked tobacco (finding) [facility] Start: 12-30-2023 Sex Assigned At Male [facility] Start: 1965 Sex Assigned At Male [facility] Tobacco smoking status Never [facility] Tobacco smoking status NHIS Tobacco smoking consumption unknown [facility] Start: 12-30-2023 Gender identity Identifies as male gender (finding) [facility] Start: 12-30-2023 Tobacco use and exposure Smokeless tobacco non-user [facility] Start: 12-30-2023 History of Social function [facility] Functional Status Date Assessment Result Facility 08-02-2023 Functional Status N/A [facility] 01-29-2023 Functional Status N/A [facility] 04-10-2022 Functional Status N/A [facility] 12-05-2021 Functional Status N/A [facility] 10-03-2021 Functional Status N/A [facility] Clinical Notes 10-03-2021 to 12-30-2023 Stewart Gill, DO - 12/30/2023 1:00 PM EDT Note Date & Type Note Facility 12-30-2023 History of Present illness Narrative Images from the original note were not included. @ENCDATE@ Black Yates is a 58 y.o. male who presents for Pain of the Right Shoulder HPI: History of Present Illness The patient is a 58-year-old right-hand dominant male here today for his right shoulder. He has a history of rotator cuff repair by Dr. Sandhu in 2015. He has received cortisone injections in the past for right shoulder pain. Recently, he took a trip to [place] and began experiencing increasing pain in his right shoulder, which prompted a visit to the emergency department. X-rays were taken, and he was given medication before being discharged. He reports that his shoulder was in good condition prior to the trip. However, he started experiencing mild pain and tingling on night, which escalated to severe pain by Wednesday morning. The pain was so intense that he was unable to move his arm away from his body. He spent the entire day in bed, unable to rise without assistance. To alleviate the pain, he applied an ice pack and took four Motrin tablets, but the pain persisted into Wednesday. He managed to shower and have breakfast but had to return to his hotel room due to the pain. He suspects that he may have twisted his shoulder while loading his suitcase onto a shuttle bus. On Wednesday, he visited the emergency room. He was prescribed Tylenol 500 mg and a low dose of oxycodone. The oxycodone provided temporary relief for about two hours. By Wednesday morning, the pain had slightly subsided. He applied hot water to his shoulder for about half an hour, which improved his mobility. He is now able to raise his arm above his head, although with some tenderness. His sleep has improved. SUBJECTIVE: MEDICATIONS: Current Outpatient Medications Medication Instructions ASPIRIN 81 MG chewable tablet Every 24 hours atorvastatin (Lipitor) 40 MG tablet 1 tablet, Oral, Daily lidocaine (Lidoderm) 5 % patch APPLY 1 PATCH TOPICALLY ONCE DAILY FOR 7 DAYS INSTR:REMOVE PATCHES AFTER 12 HOURS lisinopril 5 MG tablet 1 tablet, Oral, Daily losartan (Cozaar) 25 MG tablet 1 tablet, Daily metoprolol tartrate (Lopressor) 25 MG tablet 1 tablet, Oral, 2 times daily Multiple Vitamin (Multi-Vitamin) tablet 1 tablet, Oral, Daily RT nitroglycerin (Nitrostat) 0.[address] 1 tablet by sublingual route for 30 days. ALLERGIES: No Known Allergies SURGICAL HISTORY: History reviewed. No pertinent surgical history. FAMILY HISTORY: No family history on file. SOCIAL HISTORY: Social History Tobacco Use Smoking status: Never Smokeless tobacco: Never Depression: Not on file REVIEW OF SYMPTOMS: Review of Systems The review of systems, history and current medications list are all reviewed today. OBJECTIVE: Visit Vitals Smoking Status Never Physical Exam Alert and oriented, no acute distress. Mood and affect are appropriate. RIGHT SHOULDER Right shoulder exhibits well-healed arthroscopy portals. No swelling, no erythema, no ecchymosis. Patient can raise arm overhead, but experiences pain at maximum forward flexion. Passive forward elevation reaches 150 degrees, abduction 90, external rotation 90. Slight crepitus noted with range of motion. No weakness observed with forward flexion, internal/external rotation and resisted supination. Positive Whipple, positive Pocahontas's, positive Neer impingement. Negative cross arm. No instability detected. LEFT SHOULDER The skin is warm, dry, and intact. There is no swelling, atrophy, or deformity. The patient can raise the arm overhead. Full forward elevation, abduction, internal and external rotation. No weakness with internal and external rotation, resisted supination, or forward flexion. Negative Pocahontas's. Negative Neer/Diaz impingement. No tenderness over the AC joint. Negative cross-arm adduction. Negative Speed's and Yergason's. No instability. Ortho Exam Results Imaging We attempted to upload CD Xrays of the right shoulder taken in [place] but this was unsuccessful. ASSESSMENT AND PLAN: I reviewed the history, physical exam, diagnostic studies, and diagnosis with the patient. Assessment & Plan 1. SLAP tear, right shoulder Given his history of rotator cuff repair in 2014, the current symptoms suggest a possible SLAP tear, calcific tendinitis, a recurrent rotator cuff tear, or inflammatory arthropathy. An MRI of the right shoulder will be ordered for further evaluation. The MRI will include metal reduction due to the presence of surgical anchors. This has been a recurring problem over the past few years. He has tried conservative treatment including NSAIDs, activity modification, rest, ice, heat, tylenol, minimum 6 week physician-directed home exercise program, and multiple cortisone injections. Follow-up Return after completion of MRI. A total of 30 to 39 minutes was spent on this patient encounter which included chart review, check in, nurse triage, history taking, physical examination, diagnostic study review, patient counseling and discussion, entering information into the patient's medical record, and coordinating patient care. There are no diagnoses linked to this encounter. Stewart Gill D.O. Attestation This note was created using voice recognition through [employer]. documented in this encounter [facility] 08-02-2023 Hospital Discharge instructions Patient Education 08/02/2023 11:18:37 Prostate Cancer Screening Prostate Cancer Screening Prostate cancer screening is testing that is done to check for the presence of prostate cancer in men. The prostate gland is a walnut-sized gland that is located below the bladder and in front of the rectum in males. The function of the prostate is to add fluid to semen during ejaculation. Prostate cancer is one of the most common types of cancer in men. Who should have prostate cancer screening? Screening recommendations vary based on age and other risk factors, as well as between the professional organizations who make the recommendations. In general, screening is recommended if: You are age 50 to 70 and have an average risk for prostate cancer. You should talk with your health care provider about your need for screening and how often screening should be done. Because most prostate cancers are slow growing and will not cause , screening in this age group is generally reserved for men who have a 10- to 15-year life expectancy. You are younger than age 50, and you have these risk factors: ?Having a father, brother, or uncle who has been diagnosed with prostate cancer. The risk is higher if your family member's cancer occurred at an early age or if you have multiple family members with prostate cancer at an early age. ?Being a male who is Black or is of [place] or sub-Saharan descent. In general, screening is not recommended if: You are younger than age 40. You are between the ages of 40 and 49 and you have no risk factors. You are 70 years of age or older. At this age, the risks that screening can cause are greater than the benefits that it may provide. If you are at high risk for prostate cancer, your health care provider may recommend that you have screenings more often or that you start screening at a younger age. How is screening for prostate cancer done? The recommended prostate cancer screening test is a blood test called the prostate-specific antigen (PSA) test. PSA is a protein that is made in the prostate. As you age, your prostate naturally produces more PSA. Abnormally high PSA levels may be caused by: Prostate cancer. An enlarged prostate that is not caused by cancer (benign prostatic hyperplasia, or BPH). This condition is very common in older men. A prostate gland infection (prostatitis) or urinary tract infection. Certain medicines such as male hormones (like testosterone) or other medicines that raise testosterone levels. A rectal exam may be done as part of prostate cancer screening to help provide information about the size of your prostate gland. When a rectal exam is performed, it should be done after the PSA level is drawn to avoid any effect on the results. Depending on the PSA results, you may need more tests, such as: A physical exam to check the size of your prostate gland, if not done as part of screening. Blood and imaging tests. A procedure to remove tissue samples from your prostate gland for testing (biopsy). This is the only way to know for certain if you have prostate cancer. What are the benefits of prostate cancer screening? Screening can help to identify cancer at an early stage, before symptoms start and when the cancer can be treated more easily. There is a small chance that screening may lower your risk of dying from prostate cancer. The chance is small because prostate cancer is a slow-growing cancer, and most men with prostate cancer from a different cause. What are the risks of prostate cancer screening? The main risk of prostate cancer screening is diagnosing and treating prostate cancer that would never have caused any symptoms or problems. This is called overdiagnosisand overtreatment. PSA screening cannot tell you if your PSA is high due to cancer or a different cause. A prostate biopsy is the only procedure to diagnose prostate cancer. Even the results of a biopsy may not tell you if your cancer needs to be treated. Slow-growing prostate cancer may not need any treatment other than monitoring, so diagnosing and treating it may cause unnecessary stress or other side effects. Questions to ask your health care provider When should I start prostate cancer screening? What is my risk for prostate cancer? How often do I need screening? What type of screening tests do I need? How do I get my test results? What do my results mean? Do I need treatment? Where to find more information The [place] [employer]: www.cancer.org [place] [employer]: www.auanet.org Contact a health care provider if: You have difficulty urinating. You have pain when you urinate or ejaculate. You have blood in your urine or semen. You have pain in your back or in the area of your prostate. Summary Prostate cancer is a common type of cancer in men. The prostate gland is located below the bladder and in front of the rectum. This gland adds fluid to semen during ejaculation. Prostate cancer screening may identify cancer at an early stage, when the cancer can be treated more easily and is less likely to have spread to other areas of the body. The prostate-specific antigen (PSA) test is the recommended screening test for prostate cancer, but it has associated risks. Discuss the risks and benefits of prostate cancer screening with your health care provider. If you are age 70 or older, the risks that screening can cause are greater than the benefits that it may provide. This information is not intended to replace advice given to you by your health care provider. Make sure you discuss any questions you have with your health care provider. Document Revised: 08/11/2021 Document Reviewed: 08/11/2021 [employer] Patient Education 2022 [employer]. Follow Up Care 01/29/2023 12:48:13 With:CORWIN GUILLORY, Jaspreet Bhatt, URL Address: [facility] [address] , [place] [phone] When: Unknown Comments:6 mos w/ PSA [facility] [place] 01-29-2023 Hospital Discharge instructions Patient Education 01/29/2023 [...] under a microscope. This is called the Piercy score and the total score can range from 6 10, indicating how likely it is that the cancer will spread (metastasize) to other parts of the body. The higher the score, the greater the likelihood that the cancer will spread. Piercy 6 or lower: This indicates that the cancer cells look similar to normal prostate cells (well differentiated). Piercy 7: This indicates that the cancer cells [...] stress of having cancer. General instructions Take eobo-wvj-nwgelbn and prescription medicines only as told by your health care provider. If you have to go to the hospital, notify your cancer specialist (oncologist). Keep all follow-up visits. This is important. Where to find more information [place] [employer]: www.cancer.org [place] Society of Clinical Oncology: www.cancer.net National Cancer Dorris: www.cancer.gov Contact a health care provider if: [...] provider. Document Revised: 05/14/2021 Document Reviewed: 05/14/2021 [employer] Patient Education 2022 [employer]ometry. Follow Up Care 08/10/2022 12:38:00 With:CORWIN GUILLORY, Jaspreet Bhatt, URL Address: [address] [place], [place] [id number]- When: Unknown [facility] 01-06-2023 Note Patient here for 1 y ear follow up and surgery clearance. He is scheduled for prostate biopsy with Dr. Arvizu on 01/14/2023. He is requesting patient hold his aspirin for 7 days prior. He denies chest pain, SOB, and palpitations. Review of Systems Neurological: Positive for light-headedness. All other systems reviewed and are negative. 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 If c (more content not included)... [facility] 04-10-2022 Hospital Discharge instructions Patient Education 04/10/2022 [...] who: Are older than age 65. Are -N[place]ian. Are obese. Have a family history of [...] cells. Follow these instructions at home: Take prqz-rxa-mlqknlz and prescription medicines only as told by [...] 02/15/2006 Document Revised: 01/28/2018 Document Reviewed: 10/26/2016 [employer] Patient Education 2020 Genometry. 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 [facility] 12-05-2021 Hospital Discharge instructions Patient Education 12/05/2021 [...] who: Are older than age 65. Are -Namibian. Are obese. Have a family history of [...] cells. Follow these instructions at home: Take acqc-acy-uffvnpw and prescription medicines only as told by [...] 02/15/2006 Document Revised: 01/28/2018 Document Reviewed: 10/26/2016 [employer] Patient Education 2020 Genometry. Follow Up Care 10/29/2021 16:32:33 With:CORWIN GUILLORY, Jaspreet Bhatt, URL Address: [address] [place] [id number]- When: Unknown [facility] 11-25-2021 Note EXAMINATION: XR CHES T 2 [...] authenticated by: NELLIE CHEUNG Date: 2021-11-25 11:55 [facility] 10-03-2021 Hospital Discharge instructions Patient Education [...] urethra. Follow these instructions at home: Take nllk-tst-okazksn and prescription medicines only as told by [...] 02/15/2006 Document Revised: 01/10/2019 Document Reviewed: 03/22/2017 [employer] Patient Education 2020 Genometry. Follow Up Care 09/22/2021 15:51:55 With:Jaspreet ARVIZU MD, URL Address: [address] [place] [id number]- When: Unknown [facility] Evaluation + Plan note No data available for this section [facility] Evaluation + Plan note Future Appointments Appointment Date:12/12/2021 09:15:00 AM Scheduled Provider:Jaspreet ARVIZU MD Location:[facility] Appointment Type:URO Office Visit [facility] Evaluation + Plan note Future Appointments Appointment Date:04/10/2022 09:45:00 AM Scheduled Provider:Jaspreet ARVIZU MD Location:[facility] Appointment Type:URO Office Visit Diagnostic Tests PendingPSA Total 01/29/22 [facility] Evaluation + Plan note Future Appointments Appointment Date:08/10/2022 11:15:00 AM Scheduled Provider:Jaspreet ARVIZU MD Location:[facility] Appointment Type:URO Office Visit Diagnostic Tests PendingPSA Total 06/29/22 [facility] Evaluation + Plan note Future Appointments Appointment Date:01/25/2023 10:45:00 AM Scheduled Provider:Jaspreet ARVIZU MD Location:[facility] Appointment Type:URO Office Visit [facility] Evaluation + Plan note Future Appointments Appointment Date:08/02/2023 10:30:00 AM Scheduled Provider:Jaspreet ARVIZU MD Location:[facility] Appointment Type:URO Office Visit Diagnostic Tests PendingPSA Total 06/30/23 [facility] Evaluation + Plan note Future Appointments Appointment Date:01/31/2024 10:45:00 AM Scheduled Provider:Jaspreet ARVIZU MD Location:[facility] Appointment Type:URO Office Visit Diagnostic Tests PendingPSA Total 08/02/23 [facility] Evaluation note No assessment inform ation available [facility] Work Phone: Evaluation note Diagnosis Superior glenoid labrum lesion of right shoulder, subsequent encounter- Primary [facility] No data available for this section [facility] No data available for this section [facility] Summary Purpose Family History No Family History Records FoundNo Family History Records Found No data available for this section No Family History Records Found No data available for this section No data available for this section No Family History Records FoundNo Family History Records Found Advance Directives Advance Directive Response Recorded Date/ Time Advance [...] section and content) DATE CREATED AUTHOR 10/29/2021 [facility] DATE CREATED AUTHOR AUTHOR'S ORGANIZ ATION 04/08/2022 [facility] DATE CREATED AUTHOR AUTHOR'S ORGANIZ ATION 01/08/2023 [facility] DATE CREATED AUTHOR AUTHOR'S ORGANIZ ATION 08/03/2023 [facility] DATE CREATED AUTHOR AUTHOR'S ORGANIZ ATION 01/01/2024 [facility] EPIC Goals (unrecognized section and content) Goals may be documented in a n alternate section Reason for Visit (unrecogniz ed section and content) Reason Comments Pain FOR RECORDS PERTAINING TO PATIENTS WHO ARE [...] BE BASED ON THE PRIMARY CLINICAL RECORDS. [email or web address] provides no warranty or guarantee of the accuracy or completeness of information in this document.
== END 2024-01-12 10:16 | disposition home or self-care (01) ==
LOC: LAB 10:16
PROVIDERS: PCP Family Medicine; Visit Provider Urology
DX: C61 Malignant neoplasm of prostate (principal)
CPT/HCPCS: 36415; 84153

== ENCOUNTER 2024-02-03 09:40 | Outpatient (OUT) | payer OTHER, SELFPAY ==
[2024-02-03 10:00] LABS: Basophils Absolute Auto 0.1 10^3/uL (0.0-0.1); Basophils Percent Auto 0.7 % (0.2-2.0); Eosinophils Absolute Auto 0.6 10^3/uL (0.0-0.7); Eosinophils Percent Auto 7.9 % (0.9-7.0); Hemoglobin 13.8 g/dL (14.0-18.0); Immature Granulocytes Abs Auto 0.03 10^3/uL (0.00-0.03); Immature Granulocytes Pct Auto 0.4 % (0.0-0.5); Lymphocytes Absolute Auto 1.3 10^3/uL (1.2-3.8); Lymphocytes Percent Auto 15.9 % (20.5-60.0); Mean Corpuscular HGB Conc 33.7 g/dL (29.9-35.2); Mean Corpuscular Hemoglobin 29.5 pg (25.9-34.0); Mean Corpuscular Volume 87.6 fL (80.0-94.0); Mean Platelet Volume 10.3 fL (9.5-13.5); Monocytes Absolute Auto 0.8 10^3/uL (0.3-0.8); Monocytes Percent Auto 9.4 % (1.7-12.0); Neutrophils Absolute Auto 5.3 10^3/uL (1.4-6.5); Neutrophils Percent Auto 65.7 % (43.0-75.0); Platelet Count 215 10^3/uL (150-450); Red Blood Count 4.68 10^6/uL (4.70-6.10); Red Cell Distribution Width 12.6 % (11.0-15.0); White Blood Count 8.1 10^3/uL (4.0-11.0)
--- OUTSIDE RECORDS SUMMARY | 2024-02-03 10:02 | XMS_ITS | CCD ---
Author Organization [facility] Care Team Providers Care Lead Technical Writer Name Role Phone Bladimir Chawla Primary Care Physician MD Jaspreet Arvizu Attending Provider MD Bladimir Chawla Primary Care Provider [phone] SHANNON, DR ANDERSON Admitting Unavailable MOUKARBEL, DR [...] ARANA Admitting Unavailable GLENDA ARANA Attending Unavailable TONNY, DR DE LEON Primary Care Unavailable Unavailable Primary Care Provider UnavailSTEWART Tirado Attending Unavailable GLENDA ARANA Attending Unavailable Jaspreet ARVIZU Attending Unavailable Jaspreet ARVIZU Attending Unavailable Jaspreet ARVIZU Attending Unavailable Medications Current Medications Medication Drug Class(es) Dates Sig (Normalized) Sig (Original) acetaminophen 325 mg / HYDROcodone bitartrate 7.5 mg oral tablet (3 sources) Opioid Agonist Start: 12-08-2022 take 1 tablet by mouth once [place]lor 325 mg-7.5 mg oral tablet 1 tab(s), [...] Dosing Start Date: 10/30/21 Status: Ordered Aspirin (10 sources) Platelet Aggregation Inhibitor, Nonsteroidal Anti-inflammatory Drug Start: 04-19-2019 aspirin 81 mg, Chewed, Daily, Refills(s) 0, Blood Thinner Start Date: 04/19/19 Status: Ordered ASPIRIN 81 MG ch ewable tablet 1 (one) time each day at the same time Active atorvastatin (11 sources) HMG-CoA Reductase Inhibitor Start: 01-29-2023 ATORVASTATIN CALCIUM 40 MG TABLET ATORVASTATIN CALCIUM 40 MG TABLET Start Date: 01/29/23 Status: Ordered Start: 04-19-2019 take 40 mg by mouth once daily Lipitor 40 mg, Oral, Daily, Refills(s) 0, High cholesterol Start Date: 04/19/19 Status: Ordered Bee Pollen (8 sources) Start: 04-15-2020 take 1 capsule by [...] Active losartan potassium 25 mg oral tablet (10 sources) Angiotensin 2 Receptor Nagi Start: 10-03-2021 losartan 25 mg Tab Refills(s) 0 Start Date: 10/03/21 Status: Ordered Metoprolol (13 sources) beta-Adrenergic Nagi Start: 04-10-2022 METOPROLOL TARTRATE [...] the morning. Active Multivitamin, Therapeutic w/ Minerals (8 sources) Start: 04-15-2020 take 1 tablet by mouth once daily Multivitamin, Therapeutic w/ Minerals 1 tab(s), Oral, Daily, Prophylaxis Start Date: 04/15/20 Status: Ordered nitroglycerin 0.4 mg sublingual tablet (5 sources) Nitrate Vasodilator Start: 01-29-2023 nitroglycerin 0.4 mg sublingual Tab 0.4 mg = 1 tab(s), SubLingual, q5min, PRN for chest pain, # 100 tab(s), Refills(s) 0 Start Date: 01/29/23 Status: Ordered Start: 01-06-2023 nitroglycerin (Nitrostat) 0.[address] 1 tablet by sublingual route for 30 days. 01/06/2023 Active Shark cartilage extract (8 sources) Start: 04-15-2020 take 1 tablet by mouth once daily Shark Cartilage Shark Cartilage, 1 Tablet, Oral, Daily, Prophylaxis Start Date: 04/15/20 Status: Ordered Vitamin C 500 mg Tab (8 sources) Start: 04-15-2020 take 1 tablet by mouth once daily Vitamin C 500 mg Tab 500 mg = 1 tab(s), Oral, Daily, Prophylaxis Start Date: 04/15/20 Status: Ordered zinc gluconate 50 mg oral tablet (8 sources) Start: 04-15-2020 take 1 tablet by mouth once daily zinc gluconate 50 mg oral tablet = 1 tab(s), Oral, Daily, Prophylaxis Start Date: 04/15/20 Status: Ordered Completed/Discontinued Medications Medication Drug Class(es) Dates Sig (Normalized) Sig (Original) tadalafil 10 mg oral tablet (8 sources) Phosphodiesterase 5 Inhibitor Start: 01-31-2024 take 2 tablets by mouth every twenty-four hours tadalafil 10 mg Tab 10 mg = 1 tab(s), Oral, As Directed, PRN for erectile dysfunction, Take 1 tab by mouth 1 hour prior to sexual activity as needed. Don't exceed 2 tabs in a 24 hour period., # 30 tab(s), Refills(s) 5, Pharmacy: [facility], 184, cm, 01/31/24 10:54:00 EST, Height/Length Dosing, 92.2, kg, 01/31/24 10:54:00 EST, Weight Dosing Start Date: 01/31/24 Status: Ordered Start: 06-17-2023 take 2 tablets by [facility] every twenty-four hours tadalafil 10 mg Tab 10 mg = 1 tab(s), Oral, As Directed, PRN for erectile dysfunction, Take 1 tab by mouth 1 hour prior to sexual activity as needed. Don't exceed 2 tabs in a 24 hour period., # 30 tab(s), Refills(s) 5, Pharmacy: [facility], 184, cm, 01/29/23 11:52:00 EST, Height/Length Dosing, 91, kg, 01/29/23 11:52:00 EST, Weight Dosing Start Date: 06/17/23 Status: Ordered Start: 10-20-2022 take 2 tablets by [facility] every twenty-four hours tadalafil 10 mg Tab 10 mg = 1 tab(s), Oral, As Directed, PRN for erectile dysfunction, Take 1 tab by mouth 1 hour prior to sexual activity as needed. Don't exceed 2 tabs in a 24 hour period., # 30 tab(s), Refills(s) 5, Pharmacy: [facility], 184, cm, 08/10/22 11:29:00 EDT, Height/Length Dosing, 88, kg, 08/10/22 11:29:00 EDT, Weight Dosing Start Date: 10/20/22 Status: Ordered Start: 12-09-2021 take 2 tablets by mo uth every twenty-four hours tadalafil 10 mg Tab 10 mg = 1 tab(s), Oral, As Directed, PRN for erectile dysfunction, Take 1 tab by mouth 1 hour prior to sexual activity as needed. Don't exceed 2 tabs in a 24 hour period., # 30 tab(s), Refills(s) 5, Pharmacy: [facility], 184, , 12/05/21... Start Date: [...] period., # 30 tab(s), Refills(s) 5, Pharmacy: [facility], 184, , 04/22/20... Start Date: 09/23/21 Status: Ordered Problems Active Problems Problem Classification Problem Date Documented Da te Episodic/Chronic Acute myocardial infarction (8 sources) Myocardial infarction 04-19-2019 Chronic Cancer of prostate (15 sources) Malignant neoplasm of prostate; Translations: [Malignant tumor of prostate] Onset: 12-05-2021 Chronic Coronary atherosclerosis and other heart disease (12 sources) Coronary arteriosclerosis; Translations: [Old myocardial infarction] Onset: 10-22-2021 01-31-2020 Chronic Disorders of lipid metabolism (13 sources) Hyperlipidemia; Translations: [Mixed hyperlipidemia] Onset: 12-03-2021 04-19-2019 Chronic Essential hypertension (9 sources) Hypertensive disorder; Translations: [Essential (primary) hypertension] Onset: 12-03-2021 04-19-2019 Chronic Genitourinary symptoms and ill-defined conditions (9 sources) Post-micturition incontinence ; Translations: [Post-void dribbling] Onset: 12-03-2021 04-24-2019 Chronic Genitourinary symptoms and ill-defined conditions (20 sources) Increased frequency of urination; Translations: [Nocturia] Onset: 12-03-2021 04-24-2019 Episodic Hyperplasia of prostate (20 sources) Benign prostatic hypertrophy with outflow obstruction; Translations: [Benign prostatic hyperplasia with lower urinary tract symptoms] Onset: 09-29-2021 Chronic Other male genital disorders (7 sources) Male erectile dysfunction, unspecified; Translations: [Erectile dysfunction] Onset: 10-03-2021 Chronic Other male genital disorders (8 sources) Impotence 04-24-2019 Chronic Other male genital disorders (8 sources) Disorder of male genital organ 04-19-2019 Episodic Other screening for suspected conditions (not mental disorders or infectious disease) (13 sources) Raised prostate specific antigen; Translations: [Elevated prostate specific antigen [PSA]] Onset: 10-03-2021 Episodic Residual codes; unclassified (8 sources) Family history of cancer of colon [...] Episodic/Chronic Coronary atherosclerosis and other heart disease (1 source) Presence of coronary angioplasty implant and graft; Translations: [PRESENCE COR ANGPLSTY IMPLANT AND GRAFT] Onset: 12-03-2021 Episodic Other aftercare (1 source) long-term (current) use of anticoagulants; Translations: [JAIL CURRNT USE ANTICOAGULANTS] Onset: 12-03-2021 Episodic Other aftercare (1 source) long-term (current) use of aspirin; Translations: [JAIL CURRENT USE OF ASPIRIN] Onset: 12-03-2021 Episodic Other aftercare (1 source) Other manager licensing (current) drug therapy; Translations: [OTH JAIL CURRENT DRUG THERAPY] Onset: 12-03-2021 Episodic Other male genital disorders (1 source) Disorder of prostate, unspecified; Translations: [DISORDER OF PROSTATE UNSPECIFIED] Onset: 12-03-2021 Episodic Results Test Name Value Interpretation Reference Range Facility Ambulatory Visit Summaryon 1 04-02-2023 Ambulatory Visit Summary Ambulatory Visit Summary BLACK YATES :1965 Visit Date:01/31/2024 Ambulatory Visit Instructions Your Diagnosis Prostate cancer BPH with urinary obstruction Impotence Your Care Team Attending Physician - Jaspreet ARVIZU MD Primary Care Physician - Bladimir Chawla MD This Is Your Medications List tadalafil (tadalafil 10 mg Tab) Contact prescribing physician if questions or concerns Non-Formulary Medication (Bee Pollen) Non-Formulary Medication (Shark Cartilage) ascorbic acid (Vitamin C 500 mg Tab) aspirin atorvastatin (Lipitor) losartan (losartan 25 mg Tab) metoprolol (Lopressor) multivitamin with minerals (Multivitamin, Therapeutic w/ Minerals) nitroglycerin (nitroglycerin 0.4 mg sublingual Tab) zinc gluconate (zinc gluconate 50 mg oral tablet) Procedures Performed Transrectal biopsy of prostate using ultrasound guidance (01/14/2023), MRI-US fusion guided transperineal biopsy of prostate (11/27/2021), Colonoscopy (04/15/2020), Rotator cuff repair (12/03/2014), Hydrocelectomy (09/13/2014), Vasectomy (09/13/2014), Repair of left inguinal hernia (04/11/2008), Placement of stent in cardiac conduit. Discharge Vitals Temperature (Temporal Artery) 36.9 ???C Heart Rate (Peripheral) 70 Respiratory Rate 18 Blood Pressure 106/84 Height 184 cm Height 72 in Weight 92.2 kg Weight 203.266 lb BMI 27.23 What to do next Scheduled Follow-Up Appointments Wednesday 9:45 AM EDT With: Jaspreet ARVIZU MD Where: [facility] [address] [place] [address]- You Need to Schedule the Following Appointments Follow Up with Jaspreet ARVIZU MD, URL When: Comments: 8 mos w/ PSA Where: [facility] [address], [place] [address]- [phone] You Need to Complete the Following PSA Total, Blood, Routine collect, *Est. 07/31/24 +/- 45 day(s), Order for future visit, Lab Collect, Prostate cancer, Print Label By Order Location Medications What How Much When Instructions Unchanged tadalafil (tadalafil 10 mg Tab) 1 Tablets By Mouth As Directed as needed for for erectile dysfunction Take 1 tab by mouth 1 hour prior to sexual activity as needed. Don't exceed 2 tabs in a 24 hour period. Pickup at [facility] Unchanged ascorbic acid (Vitamin C 500 mg [...] Contact prescribing physician if questions or concerns Pharmacy Information [facility]: [address] [place], [place] [id number] [phone] Allergies No Known Allergies Problems Ongoing - [...] more likely to develop this condition if: ??? You are 65 years of age or (more content not included)... Normal [facility] Urology Office/Clinic Noteon 01-31-2024 Urology Office/Clinic Note Urology Office/Clinic Note Chief Complaint prostate cancer (ACTIVE SURVEILLANCE) HPI Staff 6 mos w/ PSA. Previous dx: prostate cancer (ACTIVE SURVEILLANCE), BPH with obstruction, impotence. *Tadalafil 10mg prn Previous PSA 07/30/23 - 2.74. Current PSA 01/12/24 - 2.80. Dysuria: denies Incomplete bladder emptying: Hematuria: denies Frequency: denies Urgency: denies Nocturia: 1-2x Stream: no straining or intermittency Leaking: denies Post void dripping: yes Wearing pads/ Depends: denies Urge incontinence: denies Stress incontinence: denies Incontinence without Sensory Awareness: denies Abdominal pain: denies Flank pain: denies Sexual complaints: denies History of Present Illness Tests reviewed: reviewed [...] See HPI. Physical Exam Vitals & Measurements T: 36.9 ???C(Temporal Artery) HR: 70(Peripheral) RR: 18 BP: 106/84 HT: 72 in HT: 184 cm WT: 92.2 kg WT: 203.266 lb BMI: 27.23 General Appearance: alert, no distress, well nourished, well developed male. Assessment/Plan 1. Prostate cancer (C61: Malignant neoplasm of prostate) ACTIVE SURVEILANCE. PSA: 05/22/20 - 1.76 09/29/21 - 2.38 04/06/22 - 3.26 08/04/22 - 3.68 07/30/23 - 2.74 01/12/24 - 2.80 MRI of prostate 10/22/21 - PI RADS 4, no evidence of lymphadenopathy. MRI fusion bx 11/27/21 - Zoya 6 (3+3) in 3 cores, 20% of tissue or less involved. GG1. S/p TRUS/bx 01/14/23 - negative for malignancy. No signs of progression. EVELINA 08/02/23: 35 gm, no nodules. PSA remains stable. No indication for further intervention. Will continue to monitor. Advised pt f/u appts can be extended out if he continues to have stability. -F/u in 8 mos w/ PSA, EVELINA 2. BPH with urinary obstruction (N40.1: Benign prostatic hyperplasia with lower urinary tract symptoms) UA today negative for blood and infection. Not currently taking any BPH meds. Has very mild post void dribbling. Not bothersome. Good stream. -Cont sx monitoring 3. Impotence (N52.9: Male erectile dysfunction, unspecified) Tadalafil 10 mg prn. Refills sent to [facility]. Pt aware nitro is contraindicated. he never uses the nitro that he has. Follow-up With When Contact Information CORWIN GUILLORY, Jaspreet Bhatt, URL [facility] [address], [place] [address]- [phone] Additional Instructions: 8 mos w/ PSA Patient Education Prostate Cancer I, Marcelina Cassidy, personally scribed for Dr. Arvizu on 01/31/2024 11:48:28. . Documentation recorded by the kemiibMarcelina jones, accurately reflects the services(s) I performed and decisions made by me. Authenticated by Dr. Arvizu on 01/31/2024 11:51:07. Problem List/Past Medical History Ongoing BPH with [...] Allergies No Known Allergies Social History Alcohol Current. Beer. 1-2 times per month., 01/31/2024 Substance Abuse Never., 01/31/2024 Tobacco Never (less than 100 in lifetime) Tobacco Use:. Household tobacco concerns: No., 12 (more content not included)... Normal [facility] Comment on above: Result Comment: Elec tronically Signed By: Jaspreet ARVIZU MD\.br\Date and Time Signed: 01/31/24 11:51 EST\.br\Electronically Co-Signed By: Marcelina Cassidy.debbie\Date and Time Co-Signed: 01/31/24 11:49 EST Office Visiton 01-25-2024 Follow-up visit [id number] Black Yates 1965 M Date Provider Department Center 01/25/2024 GLENDA SHAFER Family History Family history unknown: Yes Level of Service:40529 IN OFFICE/OUTPATIENT ESTABLISHED LOW MDM 20 MIN Reason for Visit and Comments: Follow-up [340018] Coronary Artery Disease [187] Hypertension [278976] Hyperlipidemia [182] Normal [facility] 08-02-2023 Lab Reports [id number] Normal [facility] Patient Educationon 08-02-19 24 Patient Education Oncology Prostate Cancer Screening Prostate [...] Where to find more information ? The [place] [employer]: www.cancer.org ? [place] [employer]: www.auanet.org Contact a health care [...] flu (more content not included)... Normal [facility] Urology Office/Clinic Noteon 08-02-2023 Urology Office/Clinic Note [...] URL [facility] [address], [place] [address]- [phone] Additional Instructions: 6 mos w/ PSA Patient Education Prostate Cancer Screening Marcelina Germain, personally scribed for Dr. Arvizu on 08/02/2023 11:21:51. . Documentation recorded by the scribeMarcelina, accurately reflects the services(s) I performed and decisions made by me. Authenticated by Dr. Arvizu on 08/02/2023 11:23:20. Problem List/Past Medical History Ongoing BPH with urinary obstruction CAD (coronary artery disease) Elevated PSA Family history of colon cancer requiring screening colonoscopy Hydrocele Hyperlipidemia Hypertension Impotence Myocardial infarct Nocturia Post-void ibbling Prostate cancer Urinary frequency Weak urinary stream [...] Use:. Dionisio (more content not included)... Normal [facility] Comment on above: Result Comment: Elec tronically Signed By: Jaspreet ARVIZU MD\.br\Date and Time Signed: 08/02/23 11:23 EDT\.br\Electronically Co-Signed By: Marcelina Cassidy\.br\Date and Time Co-Signed: 08/02/23 11:22 EDT LIPID PROFILEon 01-30-2022 CHOL-HDL RATIO NORM SEE BELOW Normal [facility] Comment on above: Result Comment: 3.3 - 4.4 LOW RISK 4.4 - 7.1 AVERAGE RISK 7.1 - 11.0 MODERATE RISK >11.0 HIGH RISK Performed By: #### L IPID #### [facility] [address] [address] [address] Betzy Olivera Cholesterol [Mass/Vol] 144 mg/dL Normal <=200 [facility] Comment on above: Performed By: #### L IPID #### [facility] [address] [address] [address] Betzy Olivera Cholesterol in HDL [Mass/Vol] 45 mg/dL Normal 40-60 [facility] Comment on above: Performed By: #### L IPID #### [facility] [address] [address] [address] Betzy Olivera Cholesterol in LDL [Mass/Vol] 68.0 mg/dL Normal [facility] Comment on above: Performed By: #### L IPID #### [facility] [address] [address] [address] Betzy Olivera Cholesterol.total/ Cholesterol in HDL [Mass ratio] 3.2 {ratio} Normal [facility] Comment on above: Performed By: #### L IPID #### [facility] [address] [address] [address] Betzy Olivera HDL NORMAL > or = 60 mg/dl - LO W CARDIOVASCULAR RISK <40 mg/dl - HIGH CARDIOVASCULAR RISK Normal [facility] Comment on above: Performed By: #### L IPID #### [facility] [address] [address] [address] Betzy Olivera LDL CALC NORMAL SEE BELOW Normal [facility] Comment on above: Result Comment: <100 mg/dl OPTIMAL 100 - 129 mg/dl NEAR OR ABOVE OPTIMAL 130 - 159 mg/dl BORDERLINE HIGH 160 - 189 mg/dl HIGH >190 mg/dl VERY HIGH Performed By: #### L IPID #### [facility] [address] [address] [address] Btezy Olivera Triglyceride [Mass/Vol] 155 mg/dL Critically high <=150 [facility] Comment on above: Performed By: #### L IPID #### [facility] [address] [address] [address] Betzy Olivera VLDL CALC 31.0 mg/dL Normal [facility] Comment on above: Performed By: #### L IPID #### [facility] [address] [address] [address] Betzy Olivera CBC AUTO DIFFon 11-25-2021 BASO # 0.0 103/ul Normal 0.0-0.1 [facility] Comment on above: Performed By: #### C BC #### [facility] [address] [address] [address] Betzy Olivera Basophils/100 WBC (Bld) 0.6 % Normal 0.2-2.0 [facility] Comment on above: Performed By: #### C BC #### [facility] [address] [address] [address] Betzy Olivera EO # 0.3 103/ul Normal 0.0-0.7 [facility] Comment on above: Performed By: #### C BC #### [facility] [address] [place] [address] Dr. Betzy Olivera Eosinophils/100 WBC (Bld) 4.4 % Normal 0.9-7.0 [facility] Comment on above: Performed By: #### C BC #### [facility] [address] [place] [address] Dr. Betzy Olivera Erythrocyte distribution width (RBC) [Ratio] 12.2 % Normal 11.0-15.0 [facility] Comment on above: Performed By: #### C BC #### [facility] [address] [place] [address] Dr. Betzy Olivera Hematocrit (Bld) [Volume fraction] 40.4 % Critically low 42.0-54.0 [facility] Comment on above: Performed By: #### C BC #### [facility] [address] [place] [address] Dr. Betzy Olivera Hemoglobin (Bld) [Mass/Vol] 13.7 g/dL Critically low 14.0-18.0 [facility] Comment on above: Performed By: #### C BC #### [facility] [address] [place] [address] Dr. Betzy Olivera IG # 0.04 10e3/ul Critically high 0.00-0.03 [facility] Comment on above: Performed By: #### C BC #### [facility] [address] [address] [address] Betzy Olivera IG % 0.6 % Critically high 0.0-0.5 [facility] Comment on above: Performed By: #### C BC #### [facility] [address] [place] [address] Dr. Betzy Olivera LYMPH # 1.0 103/ul Critically low 1.2-3.8 [facility] Comment on above: Performed By: #### C BC #### [facility] [address] [place] [address] Dr. Betzy Olivera Lymphocytes/100 WBC (Bld) 16.4 % Critically low 20.5-60.0 [facility] Comment on above: Performed By: #### C BC #### [facility] [address] [place] [address] Dr. Betzy Olivera MANUAL DIFF REQ NO Normal [facility] Comment on above: Performed By: #### C BC #### [facility] [address] [place] [address] Dr. Betzy Olivera MCH (RBC) [Entitic mass] 29.5 pg Normal 25.9-34.0 [facility] Comment on above: Performed By: #### C BC #### [facility] [address] [place] [address] Dr. Betzy Olivera MCHC (RBC) [Mass/Vol] 33.9 g/dL Normal 29.9-35.2 [facility] Comment on above: Performed By: #### C BC #### [facility] [address] [place] [address] Dr. Betzy Olivera MCV (RBC) [Entitic vol] 87.1 fL Normal 80.0-94.0 [facility] Comment on above: Performed By: #### C BC #### [facility] [address] [place] [address] Dr. Betzy Olivera MONO # 0.6 103/ul Normal 0.3-0.8 [facility] Comment on above: Performed By: #### C BC #### [facility] [address] [place] [address] Dr. Betzy Olivera Monocytes/100 WBC (Bld) 9.9 % Normal 1.7-12.0 [facility] Comment on above: Performed By: #### C BC #### [facility] [address] [place] [address] Dr. Betzy Olivera NEUT # 4.3 103/ul Normal 1.4-6.5 [facility] Comment on above: Performed By: #### C BC #### [facility] [address] [place] [address] Dr. Betzy Olivera Neutrophils/100 WBC (Bld) 68.1 % Normal 43.0-75.0 [facility] Comment on above: Performed By: #### C BC #### [facility] [address] [place] [address] Dr. Betzy Olivera Platelet mean volume (Bld) [Entitic vol] 10.6 fL Normal 9.5-13.5 [facility] Comment on above: Performed By: #### C BC #### [facility] [address] [place] [address] Dr. Betzy Olivera PLT 225 103/ul Normal 150-450 [facility] Comment on above: Performed By: #### C BC #### [facility] [address] [place] [address] Dr. Betzy Olivera RBC 4.64 106/ul Critically low 4.70-6.10 [facility] Comment on above: Performed By: #### C BC #### [facility] [address] [place] [address] Dr. Betzy Olivera WBC 6.3 103/ul Normal 4.0-11.0 [facility] Comment on above: Performed By: #### C BC #### [facility] [address] [place] [address] Dr. Betzy Olivera Covid-19 PCR (CVDTB)on 10-31 SARS-CoV-2 (COVID-19) RNA KARLIE+probe Ql (Unsp spec) Not detected Normal NOT DETECTED [facility] Comment on above: Result Comment: This test is not yet approved or cleared by the [place] FDA. When there are no FDA-approved or cleared tests available, and other criteria are met, FDA can make tests available under an emergency access mechanism called an Emergency Use Authorization (EUA). The EUA for this test is supported by the [place] Coordinator of Health and Human Service's (HHS's) declaration [...] SARS-CoV-2. Performed By: #### C VDTB #### [facility] [address] [place] [address] Dr. Betzy Olivera PROF CHEM 8 (BAS METB)on Anion gap [Moles/Vol] 13.6 mmol/L Normal [facility] Comment on above: Performed By: #### B MP #### [facility] [address] [place] [address] Dr. Betzy Olivera Calcium [Mass/Vol] 8.8 mg/dL Normal 8.5-10.1 [facility] Comment on above: Performed By: #### B MP #### [facility] [address] [place] [address] Dr. Betzy Olivera Chloride [Moles/Vol] 104 mmol/L Normal 98-107 [facility] Comment on above: Performed By: #### B MP #### [facility] [address] [place] [address] Dr. Betzy Olivera CO2 [Moles/Vol] 26.2 mmol/L Normal 21.0-32.0 [facility] Comment on above: Performed By: #### B MP #### [facility] [address] [place] [address] Dr. Betzy Olivera Creatinine [Mass/Vol] 1.00 mg/dL Normal 0.70-1.30 [facility] Comment on above: Performed By: #### B MP #### [facility] [address] [address] [address] Betzy Olivera EGFR-AF SWEDISH >60 Normal >=60 [facility] Comment on above: Performed By: #### B MP #### [facility] [address] [address] [address] Betzy Olivera EGFR-NON AF SWEDISH >60 Normal >=60 [facility] Comment on above: Performed By: #### B MP #### [facility] [address] [address] [address] Betzy Olivera Glucose [Mass/Vol] 115 mg/dL Critically high 74-106 [facility] Comment on above: Performed By: #### B MP #### [facility] [address] [place] [address] Dr. Betzy Olivera Potassium [Moles/Vol] 3.8 mmol/L Normal 3.5-5.1 [facility] Comment on above: Performed By: #### B MP #### [facility] [address] [address] [address] Betzy Olivera Sodium [Moles/Vol] 140 mmol/L Normal 136-145 [facility] Comment on above: Performed By: #### B MP #### [facility] [address] [address] [address] Betzy Olivera Urea nitrogen [Mass/Vol] 19.0 mg/dL Critically high 7.0-18.0 [facility] Comment on above: Performed By: #### B MP #### [facility] [address] [address] [address] Betzy Olivera Urea nitrogen/Creatinin e [Mass ratio] 19.0 mg/mg Normal [facility] Comment on above: Performed By: #### B MP #### [facility] [address] [address] [address] Betzy Olivera PROTIMEon 11-25-2021 INR Coag (PPP) [Relative time] 1.04 {INR} Normal [facility] Comment on above: Performed By: #### P T, PTT #### [facility] [address] [place] [address] Dr. Betzy Olivera INR GUIDELINES SEE BELOW Normal [facility] Comment on above: Result Comment: [place] RED INR: 2.0 - 3.0 CONDITIONS NOT LISTED BELOW 2.5 - 3.5 FOR PROSTHETIC HEART VALVE REPLACEMENT 2.5 - 3.5 RECURRENT THROMBOSIS Performed By: #### P T, PTT #### [facility] [address] [address] [address] Betzy Olivera PT Coag (PPP) [Time] 11.2 s Normal 9.0-11.6 [facility] Comment on above: Performed By: #### P T, PTT #### [facility] [address] [place] [address] Dr. Betzy Olivera PTTon 11-25-2021 aPTT Coag (Bld) [Time] 30.7 s Normal 22.3-36.2 [facility] Comment on above: Performed By: #### P T, PTT #### [facility] [address] [place] [address] Dr. Betzy Olivera MR prostate wo/w conon 10-23 MR prostate wo/w con [facility] [address] MRI Report Signed Patient: Black Yates MR#: [id number] : 1965 Acct:[id number] Age/Sex: 55 / M ADM Date: 10/22/21 Loc: MR Room: Type: [facility] Attending Dr: Jaspreet Arvizu MD Copies to: [...] 3. Impression dictated by: Judd Hernández Jr., DRoeORoe10/23/2021 12:32 PM Dictation Location: [place] [address] Transcribed By: [facility] 10/23/21 1232 Dictated By: Judd Hernández Jr, DO 10/23/21 1226 Signed By: 10/23/21 1232 [facility] Vital Signs Date Time Vital Sign Value Performing Clinician Facility 01-31-2024 10:45-0500 Blood Pressure Location Jaspreet ARVIZU [facility] 01-31-2024 10:45-0500 Body temperature 98.42 [degF] Jaspreet ARVIZU [facility] 01-31-2024 10:45-0500 Diastolic blood pressure 84 mm[Hg] Jaspreet ARVIZU [facility] 01-31-2024 10:45-0500 Heart rate 70 /min Jaspreet ARVIZU [facility] 01-31-2024 10:45-0500 Respiratory rate 18 /min Jaspreet ARVIZU [facility] 01-31-2024 10:45-0500 Systolic blood pressure 106 mm[Hg] Jaspreet ARVIZU [facility] 08-02-2023 10:40-0400 Blood Pressure Location Jaspreet ARVIZU [facility] 08-02-2023 10:40-0400 Diastolic blood pressure 81 mm[Hg] Jaspreet ARVIZU [facility] 08-02-2023 10:40-0400 Heart rate 68 /min Jaspreet ARVIZU [facility] 08-02-2023 10:40-0400 Respiratory rate 16 /min Jaspreet ARVIZU [facility] 08-02-2023 10:40-0400 Systolic blood pressure 132 mm[Hg] Jaspreet ARVIZU [facility] 01-29-2023 11:49-0500 Blood Pressure Location Jaspreet ARVIZU [facility] 01-29-2023 11:49-0500 Diastolic blood pressure 72 mm[Hg] Jaspreet ARVIZU [facility] 01-29-2023 11:49-0500 Heart rate 80 /min Jaspreet ARVIZU [facility] 01-29-2023 11:49-0500 Respiratory rate 16 /min Jaspreet ARVIZU [facility] 01-29-2023 11:49-0500 Systolic blood pressure 127 mm[Hg] Jaspreet ARVIZU [facility] 12-05-2021 08:23-0400 Blood Pressure Location Jaspreet ARVIZU [facility] 12-05-2021 08:23-0400 Diastolic blood pressure 88 mm[Hg] Jaspreet ARVIZU [facility] 12-05-2021 08:23-0400 Heart rate 69 /min Jaspreet ARVIZU [facility] 12-05-2021 08:23-0400 Systolic blood pressure 120 mm[Hg] Jaspreet ARVIZU [facility] 10-03-2021 09:56-0400 Blood Pressure Location Jaspreet ARVIZU [facility] 10-03-2021 09:56-0400 Diastolic blood pressure 79 mm[Hg] Jaspreet ARVIZU [facility] 10-03-2021 09:56-0400 Heart rate 56 /min Jaspreet ARVIZU [facility] 10-03-2021 09:56-0400 Respiratory rate 16 /min Jaspreet ARVIZU [facility] 10-03-2021 09:56-0400 Systolic blood pressure 122 mm[Hg] [facility] Date Encounter Type Care Provider Facility Start: 10-02-2024 ambulatory Jaspreet ARVIZU Facili ty:[facility] Start: 01-31-2024 End: 01-31-2024 ambulatory Jaspreet ARVIZU Facility:[facility] Start: 01-31-2024 End: 01-31-2024 Patient encounter procedure Jaspreet ARVIZU [facility] Start: 01-25-2024 End: 01-25-2024 ambulatory [facility] Start: 12-30-2023 End: 12-30-2023 Bamboo flowsheet Stewart [...] Start: 08-02-2023 End: 08-02-2023 ambulatory Jaspreet ARVIZU Facility:[facility] Start: 08-02-2023 End: 08-02-2023 Patient encounter procedure Jaspreet ARVIZU [facility] Start: 01-29-2023 End: 01-29-2023 Patient encounter procedure Jaspreet ARVIZU [facility] Start: 12-08-2022 End: 01-06-2023 Pre-admission assessment Jaspreet ARVIZU [facility] Start: 04-10-2022 End: 04-10-2022 Patient encounter procedure Jaspreet ARVIZU [facility] Start: 04-06-2022 End: 04-07-[address] JASPREET ARVIZU Facility:[facility] Start: 01-30-2022 End: 01-31-[address] JUSTIN ORTEGA Facility:[facility] Start: 12-05-2021 End: 12-05-2021 Patient encounter procedure Jaspreet ARVIZU [facility] Start: 11-27-2021 Encounter for preprocedural cardiovascular examination DR JASPREET ARVIZU [facility] Start: 11-27-2021 Encounter for preprocedural laboratory examination DR JASPREET ARVIZU [facility] Start: 11-27-2021 Encounter for preprocedural respiratory examination DR JASPREET ARVIZU [facility] Start: 11-27-2021 End: 11-27-[address] JASPREET ARVIZU Facility:[facility] Start: 11-25-2021 End: 11-26-[address] JASPREET ARVIZU Facility:[facility] Start: 11-25-2021 End: 11-26-2021 Encounter for preprocedural laboratory examination DR JASPREET ARVIZU Facility:[facility] Start: 10-29-2021 End: 11-26-2021 Pre-admission assessment Jaspreet ARVIZU [facility] Start: 10-22-2021 End: 10-22-2021 Patient encounter procedure MD Jaspreet Arvizu Work Phone: [facility] [place] Start: 10-03-2021 End: 10-03-2021 Patient encounter procedure Jaspreet ARVIZU [facility] Start: 09-29-2021 End: 09-30-[address] JASPREET ARVIZU Facility:[facility] Start: 09-12-2021 ambulatory GLENDA PAULSONER Facility :[facility] Procedures Date Procedure Procedure Detail Performing Clinician Start: 01-14-2023 Transrectal biopsy o f prostate using ultrasound guidance Jaspreet ARVIZU Start: 04-06-[address] JUSTIN ORTEGA Comment on above: Performed By: #### P SAD #### [facility] [address] [place] [address] Dr. Betzy Olivera Start: 11-27-2021 MRI-US fusion guided transperineal biopsy of prostate Jaspreet ARVIZU Start: 11-27-2021 Ultrasonography by transrectal approach Jaspreet ARVIZU Start: 10-22-2021 MR prostate wo/w con MD Jaspreet Arvizu Work Phone: Start: 09-29-[address] JUSTIN ORTEGA Comment on above: Performed By: #### P SAD #### [facility] [address] [place] [address] Dr. Betzy Olivera Start: 04-15-2020 Colonoscopy Jaspreet DEAN Comment on above: removal of 2 colon p olyps Start: 12-03-2014 Repair of musculoten dinous cuff of shoulder Jaspreet ARVIZU Comment on above: right Start: 09-13-2014 Hydrocelectomy Jaspreet ARIVZU Comment on above: left Start: 09-13-2014 Vasectomy Jaspreet DEAN Start: 04-11-2008 Repair of left ingui nal hernia Jaspreet ARVIZU Placement of stent i n cardiac conduit Jaspreet ARVIZU Plan of Treatment Date Care Activity Detail Author Start: 12-30-2023 End: 12-30-2023 Patient encounter procedure 12/30/2023 1:00 PM EDT Office Visit [facility] [address] [place] [address] Stewart Gill DO [address] [place] [address] Arrived [facility] Comment on above: Arrived Start: 10-31-2023 Influenza vaccination Influenza Vacc ine (#1) [facility] Start: 1965 Screening for malign ant neoplasm of colon [facility] Immunizations Immunization Date Immunization Notes Care Provider Fa cility 07-02-2020 SARS-CoV-2 (COVID-19 ) Ad26 vaccine, recombinant Jaspreet ARVIZU [facility] NEGATED: Highlighted row has not occurred!04-22-2020 influenza virus vaccine, unspecified formulation Jaspreet ARVIZU [facility] Payers Date Payer Category Payer Private Health Insurance [employer] [id number] 1965 Unknown [id number] .[id number] 1965 Unknown [id number] [id number] .2.593 1965 Unknown [id number] [id number] .2.593 1965 Unknown [id number] [id number] .2.593 1965 Unknown [id number] [id number] .2.593 1965 Unknown [id number] [id number] .2.593 1965 Unknown [id number] [id number] .2.1259 1965 Unknown [id number] [id number] .2.727 1965 Unknown [id number] [id number] .2.727 1965 Unknown [id number] .2.727 1961 Self-pay 1961 Unknown [id number] Social History Date Type Detail Facility Start: 03-29-2020 End: 01-31-2024 Tobacco smoking status Never smoked tobacco (finding) [facility] Start: 12-30-2023 [facility] At Male [facility] Start: 1965 Sex Assigned At Male F [facility] Tobacco smoking status Never [facility] Tobacco smoking status NHIS Tobacco smoking consumption unknown [facility] Start: 12-30-2023 Gender identity Identifies as male gender (finding) [facility] Start: 12-30-2023 Tobacco use and exposure Smokeless tobacco non-user [facility] Start: 12-30-2023 History of Social function [facility] Functional Status Date Assessment Result Facility 01-31-2024 Functional Status N/A [facility] 08-02-2023 Functional Status N/A [facility] 01-29-2023 Functional Status N/A [facility] 04-10-2022 Functional Status N/A [facility] 12-05-2021 Functional Status N/A [facility] 10-03-2021 Functional Status N/A [facility] Clinical Notes 10-03-2021 to 01-31-2024 Stewart Gill, DO - 12/30/2023 1:00 PM EDTLaboratory Note Date & Type Note Facility 01-31-2024 Hospital Discharge instructions Patient Education 01/31/2024 11:44:33 Prostate Cancer Prostate Cancer The prostate is [...] under a microscope. This is called the Clarkson score and the total score can range from 6 10, indicating how likely it is that the cancer will spread (metastasize) to other parts of the body. The higher the score, the greater the likelihood that the cancer will spread. Clarkson 6 or lower: This indicates that the cancer cells look similar to normal prostate cells (well differentiated). Zoya 7: This indicates that the cancer [...] stress of having cancer. General instructions Take dren-eal-trfmwuc and prescription medicines only as told by your health care provider. If you have to go to the hospital, notify your cancer specialist (oncologist). Keep all follow-up visits. This is important. Where to find more information [place] [employer]: www.cancer.org [place] Society of Clinical Oncology: www.cancer.net National Cancer [place]: www.cancer.gov Contact a health care provider if: [...] provider. Document Revised: 05/14/2021 Document Reviewed: 05/14/2021 [employer] Patient Education 2023 [employer]i. Follow Up Care 08/02/2023 11:23:10 With:CORWIN GUILLORY, Jaspreet Bhatt, URL Address: [facility] [address] [place] [address]- [phone] When: Unknown Comments:8 mos w/ PSA [facility] 01-31-2024 Note Patient Education Oncology Prostate Cancer The prostate [...] more likely to develop this condition if: ??? You are 65 years of age or older. ??? You have a family history of prostate cancer. ??? You have a family history of breast and ovarian cancer. ??? You have genes that are passed from parent to child (inherited), such as BRCA1 and BRCA2. ??? You have Narayan syndrome. men and men of descent are diagnosed with prostate cancer at higher rates than other men. The reasons for this are not well understood and are likely due to a combination of genetic and environmental factors. What are the signs or symptoms? Symptoms of this condition include: ??? Problems with urination. This may include: ? A weak or interrupted flow of urine. ? Trouble starting or stopping urination. ? Trouble emptying the bladder all the way. ? The need to urinate more often, especially at night. ??? Blood in urine or semen. ??? Persistent pain or discomfort in the lower back, lower abdomen, or hips. ??? Trouble getting an erection. ??? Weakness or numbness in the legs or feet. How is this diagnosed? This condition can be diagnosed with: ??? A digital rectal exam. For this exam, a health care provider inserts a gloved finger into the rectum to feel the prostate gland. ??? A blood test called a prostate-specific antigen (PSA) test. ??? A procedure in which a sample of tissue is taken from the prostate and checked under a microscope (prostate biopsy). ??? An imaging test called transrectal ultrasonography. Once the condition is diagnosed, tests will be done to determine how far the cancer has spread. This is called staging the cancer. Staging may involve imaging tests, such as a bone scan, CT scan, PET scan, or MRI. Stages of prostate cancer The stages of prostate cancer are as follows: ??? Stage 1 (I). At this stage, the cancer is found in the prostate only. The cancer is not visible on imaging tests, and it is usually found by accident, such as during prostate surgery. ??? Stage 2 (II). At this stage, the cancer is more advanced than it is in stage 1, but the cancer has not spread outside the prostate. ??? Stage 3 (III). At this stage, the cancer has spread beyond the outer layer of the prostate to nearby tissues. The cancer may be found in the seminal vesicles, which are near the bladder and the prostate. ??? Stage 4 (IV). At this stage, the [...] the likelihood that the cancer will spread. ??? Clarkson 6 or lower: This indicates that the cancer cells look similar to normal prostate cells (well differentiated). ??? Clarkson 7: This indicates that the cancer cells look somewhat similar to normal prostate cells (moderately differentiated). ??? Zoya 8, 9, or 10: This indicates that the cancer cells look very different than normal prostate cells (poorly differentiated). How is this treated? Treatment for this condition depends on several factors, including the stage of the cancer, your age, personal preferences, and your overall health. Talk with your health care provider about treatment options that are recommended for you. Common treatments include: ??? Observation for early stage prostate cancer (active surveillance). This involves having exams, blood tests, and in some cases, more biopsies. For some men, this is the only treatment needed. ??? Surgery. Types of surgeries include: ? Open [...] surgery to freeze and destroy cancer cells. ??? Radiation treatment. Types of radiation treatment include: ? External beam radiation. This type aims beams of radiation from outside the body at the prostate to destroy cancerous cells. ? Brachytherapy. This type uses radioactive needles, seeds, wires, o (more content not included)... [facility] 01-25-2024 Note [facility] Subjective Black Yates is a 58 y.o. year old male patient being seen for Follow-up, Coronary Artery Disease, Hypertension, and Hyperlipidemia Patient Active Problem List Diagnosis Coronary atherosclerosis [...] RCA (November 2010) and hypertension and hyperlipidemia. -Hx prostate CA, currently under surveillance He has been doing well since last seen. Kids are coming home for Thanksgiving. 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 He gets occasional lightheadedness with position changes. Resolves quickly. Denies CP, dyspnea, orthopnea, PND, LE edema, palpitations. He exercises with no symptoms. He plays baseball and basketball with no issues. He walks his dog daily. He developed cough on dionte inhibitor and is currently on losartan without issues. BP at home running 120-130/70-80s. Review of Systems Constitutional: Positive for malaise/fatigue. Negative for chills, decreased appetite, fever and weight gain. Cardiovascular: Positive for dyspnea on exertion. Negative for chest pain, irregular heartbeat, leg swelling, near-syncope, orthopnea, palpitations, paroxysmal nocturnal dyspnea and syncope. Hematologic/Lymphatic: Negative for bleeding problem. Does not bruise/bleed easily. Neurological: Positive for light-headedness. Objective Visit Vitals BP 138/80 (BP Location: Left arm, Patient Position: Sitting, BP Cuff Size: Adult) Pulse 66 Resp 12 Ht 1.829 m (6') Wt 90.7 kg (200 lb) SpO2 97% BMI 27.12 kg/m??? Smoking Status Never BSA 2.15 m??? Physical Exam Constitutional: Appearance: He is [...] normal sinus rhythm. ECG 11/25/2021: Sinus rhythm. Assessmen (more content not included)... [facility] 12-30-2023 History of Present illness Narrative Images from the original note were not included. @ENCDATE@ Black Yates is a 58 y.o. male who presents for Pain of the Right Shoulder HPI: History of Present Illness The patient is a 58-year-old right-hand dominant male here today for his right shoulder. He has a history of rotator cuff repair by Dr. Sandhu in 2014. He has received cortisone injections in the past for right shoulder pain. Recently, he took a trip to [place] and began experiencing increasing pain in his [...] temporary relief for about two hours. By Wednesday, the pain had slightly subsided. He applied [...] rotation and resisted supination. Positive Whipple, positive Story's, positive Neer impingement. Negative cross arm. No instability detected. LEFT SHOULDER The skin is warm, dry, and intact. There is no swelling, atrophy, or deformity. The patient can raise the arm overhead. Full forward elevation, abduction, internal and external rotation. No weakness with internal and external rotation, resisted supination, or forward flexion. Negative Story's. Negative Neer/Diaz impingement. No tenderness over the AC joint. Negative cross-arm adduction. Negative Speed's and Yergason's. No instability. Ortho Exam Results Imaging We attempted to upload CD Xrays of the right shoulder taken in [place] but this was unsuccessful. ASSESSMENT AND PLAN: [...] note was created using voice recognition through [employer]. documented in this encounter [facility] 08-02-2023 Hospital Discharge instructions Patient Education 08/02/2023 [...] treatment? Where to find more information The [place] [employer]: www.cancer.org [place] [employer]: www.auanet.org Contact a health care [...] provider. Document Revised: 08/11/2021 Document Reviewed: 08/11/2021 [employer] Patient Education 2022 Fengxiafei. Follow Up Care 01/29/2023 12:48:13 With:CORWIN GUILLORY, Jaspreet Bhatt, URL Address: [facility] [address] [place] [address]- [phone] When: Unknown Comments:6 mos w/ PSA [facility] 01-29-2023 Hospital Discharge instructions [...] under a microscope. This is called the Clarkson score and the total score can range from 6 10, indicating how likely it is that the cancer will spread (metastasize) to other parts of the body. The higher the score, the greater the likelihood that the cancer will spread. Clarkson 6 or lower: This indicates that the cancer cells look similar to normal prostate cells (well differentiated). Zoya 7: This indicates that the cancer cells look somewhat similar to normal prostate cells (moderately differentiated). Clarkson 8, 9, or 10: This indicates that [...] stress of having cancer. General instructions Take sewo-hdr-nwrljcj and prescription medicines only as told by your health care provider. If you have to go to the hospital, notify your cancer specialist (oncologist). Keep all follow-up visits. This is important. Where to find more information [place] [employer]: www.cancer.org [place] Society of Clinical Oncology: www.cancer.net National Cancer [place]: www.cancer.gov Contact a health care provider if: [...] provider. Document Revised: 05/14/2021 Document Reviewed: 05/14/2021 [employer] Patient Education 2022 [employer]xia[employer]i. Follow Up Care 08/10/2022 12:38:00 With:CORWIN GUILLORY, Jaspreet Bhatt, URL Address: [address] [place], [place] [id number]- When: Unknown [facility] 04-10-2022 Hospital Discharge instructions Patient Education [...] who: Are older than age 65. Are -[place]. Are obese. Have a family history of [...] cells. Follow these instructions at home: Take xpnf-cyz-mgzuwlq and prescription medicines only as told by [...] 02/15/2006 Document Revised: 01/28/2018 Document Reviewed: 10/26/2016 [employer] Patient Education 2020 Fengxiafei. Follow Up Care 12/05/2021 09:13:28 With:CORWIN GUILLORY, Jaspreet R, URL Address: [address] [place] [id number]- When: Unknown [facility] 12-05-2021 Hospital Discharge instructions Patient Education 12/05/2021 [...] who: Are older than age 65. Are -[place]. Are obese. Have a family history of [...] cells. Follow these instructions at home: Take vemn-aww-egwvmbs and prescription medicines only as told by [...] 02/15/2006 Document Revised: 01/28/2018 Document Reviewed: 10/26/2016 [employer] Patient Education 2020 Fengxiafei. Follow Up Care 10/29/2021 16:32:33 With:CORWIN GUILLORY, Jaspreet Bhatt, URL Address: [address] [place], [place] [address]- When: Unknown [facility] 11-25-2021 Note EXAMINATION: XR CHES T 2 [...] authenticated by: NELLIE CHEUNG Date: 2021-11-25 11:55 [facility] 10-03-2021 Hospital Discharge instructions Patient Education [...] urethra. Follow these instructions at home: Take peco-brj-yinvqjj and prescription medicines only as told by [...] 02/15/2006 Document Revised: 01/10/2019 Document Reviewed: 03/22/2017 [employer] Patient Education 2020 Fengxiafei. Follow Up Care 09/22/2021 15:51:55 With:Jaspreet ARVIZU MD, URL Address: [address] [place] [address]- When: Unknown [facility] Evaluation + Plan note No data available for this section [facility] Evaluation + Plan note Future Appointments Appointment Date:12/12/2021 09:15:00 AM Scheduled Provider:Jaspreet ARVIZU MD [facility] Appointment Type:URO Office Visit [facility] Evaluation + Plan note Future Appointments Appointment Date:04/10/2022 09:45:00 AM Scheduled Provider:Jaspreet ARVIZU MD Location[facility] Appointment Type:URO Office Visit Diagnostic Tests PendingPSA Total 01/29/22 [facility] Evaluation + Plan note Future Appointments Appointment Date:08/10/2022 11:15:00 AM Scheduled Provider:Jaspreet ARVIZU MD Location:[facility] Appointment Type:URO Office Visit Diagnostic Tests PendingPSA Total 06/29/22 [facility] Evaluation + Plan note Future Appointments Appointment Date:01/25/2023 10:45:00 AM Scheduled Provider:Jaspreet ARVIZU MD Location[facility] Appointment Type:URO Office Visit [facility] Evaluation + Plan note Future Appointments Appointment Date:08/02/2023 10:30:00 AM Scheduled Provider:Jaspreet ARVIZU MD Location:[facility] Appointment Type:URO Office Visit Diagnostic Tests PendingPSA Total 06/30/23 [facility] Evaluation + Plan note Future Appointments Appointment Date:01/31/2024 10:45:00 AM Scheduled Provider:Jaspreet ARVIZU MD Location[facility] Appointment Type:URO Office Visit Diagnostic Tests PendingPSA Total 08/02/23 [facility] Evaluation + Plan note Future Appointments Appointment Date:10/02/2024 09:45:00 AM Scheduled Provider:Jaspreet ARVIZU MD Location[facility] Appointment Type:URO Office Visit Future Scheduled TestsPSA Total 07/31/24 [facility] Evaluation note No assessment inform ation [facility] Work Phone: Evaluation note Diagnosis Superior glenoid labrum lesion of right shoulder, subsequent encounter- [facility] No data available for this section [facility] No data available for this section [facility] Summary Purpose Family History No Family History Records FoundNo Family History Records Found No data available for this section No data available for this section No data available for this section No Family History Records FoundNo Family History Records FoundNo Family History Records Found No data available for this section Advance Directives Advance Directive Response Recorded Date/ Time Advance Directives No October 17, 2021 3:16pm Chief Complaint and Reason for Visit Chief Complaint Elevated PSA Additional Source Comments Care Team (unrecognized sect ion and content) Personnel Name: Bladimir Chawla MD Address: Address: [address] [place] [address] Team Status: Inactive Member Role Status Dates [...] section and content) DATE CREATED AUTHOR 10/29/2021 [facility] DATE CREATED AUTHOR AUTHOR'S ORGANIZ ATION 04/08/2022 [facility] DATE CREATED AUTHOR AUTHOR'S ORGANIZ ATION 01/01/2024 [facility] DATE CREATED AUTHOR AUTHOR'S ORGANIZ ATION 01/28/2024 [facility] DATE CREATED AUTHOR AUTHOR'S ORGANIZ ATION 02/01/2024 [facility] Goals (unrecognized section and content) Goals may [...] BE BASED ON THE PRIMARY CLINICAL RECORDS. [facility] [employer] [facility]. provides no warranty or guarantee of the accuracy or completeness of information in this document.
[2024-02-03 10:30] LABS: Alanine Aminotransferase 49 U/L (16-63); Albumin Globulin Ratio 1.2; Albumin Level 3.8 g/dL (3.4-5.0); Alkaline Phosphatase 43 U/L (46-116); Anion Gap 11.8; Aspartate Amino Transferase 23 U/L (15-37); BUN Creatinine Ratio 21.1; Bilirubin Total 0.8 mg/dL (0.2-1.0); Calcium 9.2 mg/dL (8.5-10.1); Carbon Dioxide 29.1 mmol/L (21.0-32.0); Chloride 105 mmol/L (98-107); Chol HDL Ratio 3.1; Cholesterol 154 mg/dL (<=200); Estimated GFR (African America >60 (>=60 mL/min/1.73m^2); Estimated GFR (Non-African Ame >60 (>=60 mL/min/1.73m^2); Globulin 3.1 g/dL; Glucose 116 mg/dL (74-106); HDL Cholesterol 50 mg/dL (40-60); LDL Cholesterol Calculated 79.2 mg/dL; Potassium 3.9 mmol/L (3.5-5.1); Sodium 142 mmol/L (136-145); Total Protein 6.9 g/dL (6.4-8.2); Triglycerides 124 mg/dL (<=150); VLDL CHOLESTEROL 24.8 mg/dL
== END 2024-02-03 09:41 | disposition home or self-care (01) ==
LOC: LAB 09:41
PROVIDERS: PCP Family Medicine; Visit Provider Nurse Practitioner Family
DX: I25.10 Atherosclerotic heart disease of native coronary artery without angina pectoris (principal)
CPT/HCPCS: 36415; 80053; 80061; 85025

== ENCOUNTER 2024-10-03 09:39 | Outpatient (OUT) | payer OTHER, SELFPAY ==
--- OUTSIDE RECORDS SUMMARY | 2024-07-13 07:30 | XMS_ITS ---
Author Organization [facility] in [place] Address [address] [place] [address] Care Team Providers Care Drupal Programmer Name Role Phone Anshu Chawla Primary Care Provider [phone] Allergies No Known Allergies REASON FOR VISIT Yearly wellness, thinks due for colonoscopy- previously saw Dr Gentile Medications Medication SIG (Take, Route, Frequency, Duration) Notes Start Date End Date Status Vitamin C 07/13/2024 Active Multi For Him 07/13/2024 Activ e Zinc 07/13/2024 Active Metoprolol Tartrate 25 MG TAKE 1 TABLET (25 MG) BY MOUTH IN THE MORNING AND AT BEDTIME. Oral for 90 Days Active Losartan Potassium 25 MG Oral for 90 Days Active Atorvastatin Calcium 40 MG TAKE 1 TABLET (40 MG) BY MOUTH IN THE MORNING. Oral for 90 Days Active Aspirin 81 81 MG 1 tablet Orally Once a day for 30 days 07/13/2024 Active Social History Tobacco Use: Social History Observation Description Date Details (start date - stop date) Never Smoker NA - NA Tobacco Control (Standard) Question Answer Notes Tobacco use: Nonsmoker AUDIT-C (Standard) Question Answer Notes Did you have a drink contain ing alcohol in the past year? Yes How often did you have a dri nk containing alcohol in the past year? Never (0 point) How many drinks did you have on a typical day when you were drinking in the past year? 1 or 2 drinks (0 point) How often did you have six o r more drinks on one occasion in the past year? 2 to 4 times a month (2 points) Points 2 Interpretation Negative Problems Problem Type SNOMED Code ICD Code Onset Dates Problem Status W/U Status Risk Notes Problem Hypertension (41542427) Hypertension (I10) Active confirmed Problem Acute non-ST segment elevation myocardial infarction (998677673) Acute [place], subendocardial (I21.4) Active confirmed Problem Hypercholesterolemia (15540060) Hypercholesterolemia (E78.00) Active confirmed Problem Well adult (371826377) Well adult (Z00.00) Active confirmed Vital Signs Weight 207.4 lbs 07/13/2024 Height 72 in 07/13/2024 Blood pressure systolic 160 mm Hg 07/14/19 25 Blood pressure diastolic 90 mm Hg 025 BMI 28.13 kg/m2 07/13/2024 Encounters Encounter Location Date Provider Diagnosis [facility] [address] [place] [address] 07/13/2024 Anshu Chawla Well adult Z00.0 0 Assessments Encounter Date Diagnosis (ICD Code) Assessment Notes Treatment Notes Treatment Clinical Notes Section Notes 07/13/2024 Well adult (ICD-10 - Z00.00) Plan Of Treatment No Information Progress Notes * Rob CASTRODOB:1965 (58 yo M)Acc No.[id number]:07/13/2024 Progress Note Patient: Jim BARRETORob GARZA Provider: Julio Chawla ([facility])MD :1965 A ge:58 Y S ex:Male Date:07/13/2024 Address:[address] [place], [place] [id number] Check In:11:26 AM ESTCheck O ut:11:55 AM EST Subjective: * Chief Complaints: * Y early wellnessthinks due for colonoscopy- previously saw Dr Gentile * HPI: G eneral: Prostate cancer - had bx - repat bx neg - CAD - mi at 44 - R shoulder torn labrum Left knee torn meniscus. D epression Screening: PHQ-2 (2015 Edition) L ittle interest or pleasure in doing things??Not at all F eeling down, depressed, or hopeless? N ot at all T otal Score 0 * ROS: E ENT: hearing changes d enies. v isual changes d enies.?non-healing mouth sores d enies. s wollen glands or neck lumps d enies. h oarseness d enies. s ore throat d enies. d ifficulty swallowing d enies. n ose bleeds d enies. n sherice congestion d enies. e ar ache d enies. e ar discharge?denies. r inging in ears d enies. l ight sensitivity d enies. e ye pain d enies. b lurring d enies. e ye irritation d enies. d ouble vision d enies.?vision loss d enies. G eneral/Constitutional: Sweats: D enies. F atigue d enies. S leep problems d enies. A norexia d enies. M alaise d enies. W eight loss d enies.?Fatigue or Weakness d enies. F ever or Chills d enies. C ardiovascular: Shortness of Breath w/lying flat d enies. L ightheadedness/dizziness d enies. C hest tightness/ heavy pressure d enies. S welling of legs, ankles, or feet d enies. W aking up with shortness of breath d enies. C hest pain denies. P alpitations d enies. W eight gain d enies. R espiratory: Chronic or frequent cough d enies. C oughing up blood?denies. D ifficulty breathing d enies. P roductive cough d enies. S noring?denies. S hortness of breath that awakens from sleep (PND) d enies. C hest pain d enies. S putum production d enies. W heezing d enies. M usculoskeletal: Joint pain d enies. J oint Fluid d enies. B ack pain d enies. K nee pain d enies. N maame pain d enies. J oint Stiffness d enies. M uscle cramps d enies. W eakness of muscles d enies. A rthritis d enies. M uscle aches d enies. P ain in shoulder(s) d enies. S wollen joints d enies. * Active Problem List I10 Hypertension Modified On:07/13/2024 Status:confirmed E78.00 Hypercholesterolemia Modified On:07/13/2024 Status:confirmed I21.4 Acute AZ, subendocar dial Modified On:07/13/2024 Status:confirmed I25.10 Atherosclerotic hear t disease of [place] coronary artery without angina pectoris Modified On:01/13/2023 Status:confirmed I11.9 Hypertensive heart d isease without heart failure Modified On:01/13/2023 Status:confirmed R00.2 Palpitations Modified On:01/13/2023 Status:confirmed E78.2 Mixed hyperlipidemia Modified On:01/13/2023 Status:confirmed Z01.818 Pre-op exam Modified On:02/03/2023 Status:confirmed Z00.00 Well adult Modified On:07/13/2024 Status:confirmed * Medical History: * Surgical History: R otator cuff- right Hernia Repair Cardiac Stent x3 Colonoscooy 2020Hydrocele * Hospitalization/Major Diagno stic Procedure: D enies Past Hospitalization * Family History: F ather: , colon cancer, diagnosed with Unspecified heart disease. M other: , dementia. * Social History: T obacco Use: T obacco Control (Standard) T obacco use: N onsmoker D rug/Alcohol: A ERIN-C (Standard) D id you have a drink containing alcohol in the past year? Y es H ow often did you have a drink containing alcohol in the past year? N ever (0 point) H ow many drinks did you have on a typical day when you were drinking in the past year? 1 or 2 drinks (0 point) H ow often did you have six or more drinks on one occasion in the past year? 2 to 4 times a month (2 points) P oints 2 I nterpretation N egative * Medications: T akingAspirin 81(Aspirin) 81 MG Tablet Delayed Release 1 tablet Orally Once a day Atorvastatin Calcium 40 MG Tablet TAKE 1 TABLET (40 MG) BY MOUTH IN THE MORNING. Oral Losartan Potassium 25 MG Tablet Oral Metoprolol Tartrate 25 MG Tablet TAKE 1 TABLET (25 MG) BY MOUTH IN THE MORNING AND AT BEDTIME. Oral Multi For Him Vitamin C Zinc Taking Aspirin 81(Aspirin) 81 MG Tablet Delayed Release 1 tablet Orally Once a day Taking Atorvastatin Calcium 40 MG Tablet TAKE 1 TABLET (40 MG) BY MOUTH IN THE MORNING. Oral Taking Losartan Potassium 25 MG Tablet Oral Taking Metoprolol Tartrate 25 MG Tablet TAKE 1 TABLET (25 MG) BY MOUTH IN THE MORNING AND AT BEDTIME. Oral Taking Multi For Him Taking Vitamin C Taking Zinc DiscontinuedAmoxicillin-Pot Clavulanate 875-125 MG Tablet 1 tablet Orally every 12 hrs Metoprolol Tartrate 25 MG Tablet TAKE 1 TABLET (25 MG) BY MOUTH IN THE MORNING AND AT BEDTIME. Oral Medication List reviewed and reconciled with the patientDiscontinued Amoxicillin-Pot Clavulanate 875-125 MG Tablet 1 tablet Orally every 12 hrs Discontinued Metoprolol Tartrate 25 MG Tablet TAKE 1 TABLET (25 MG) BY MOUTH IN THE MORNING AND AT BEDTIME. Oral Medication List reviewed and reconciled with the patient * Allergies: N .K.D.A.no[Allergies Verified] Objective: * Vitals: W t:207.4lbs, Ht: 72 in, BP:160/90mm Hg, BMI:28.13Index, Ht-cm: 182.88 cm, Wt-k.08 kg. * Examination: P hysical Exam: GENERAL: w ell developed, well nourished, in no acute distress. HEAD: n ormocephalic/atraumatic. EYES: p upils equal, round and reactive to light, conjunctivae and sclerae normal. EARS: n o deformity or lesion of external ear, canals and TM appear normal bilaterally, TM's intact, not inflamed with normal light reflex, hearing grossly normal to conversational speech. NOSE: n o deformity, discharge, inflammation, or lesions.? MOUTH: m ucous membranes moist, normal oropharynx and posterior pharynx without lesions or exudates, tongue normal, dentition normal. NECK: n maame supple, no masses or palpable cervical nodes, trachea midline, thyroid without nodules, masses, tenderness, or enlargement. CHEST: n o chest wall deformity, no chest wall tenderness.? LUNGS: n ormal respiratory effort and clear to auscultation, no wheezes, rales, or rhonchi, good air exchange. CARDIO: r egular rate and rhythm, normal S1 and S2, nor murmur, rub, or gallop. PULSES: n ormal capillary refill. ABDOMEN: s oft, non-distended, non-tender, no masses. MUSCULOSKELETAL: n o deformity or scoliosis noted, normal range of motion, joints normal, no erythema, edema, effusion, or ecchymosis. EXTREMITY: n o clubbing, cyanosis, edema, or deformity with normal ROM in both upper and lower bilateral extremities. NEUROLOGIC: g rossly normal. SKIN: n o rashes, ulcerations, or suspicious lesions. LYMPH NODES: n o cervical adenopathy, nodes normal. MENTAL STATUS: a lert and oriented x3, normal mood and affect. Assessment: * Assessment: 1. W ell adult - Z00.00 (Primary) Plan: * Treatment: * Procedure Codes: * * Sign off status: Completed Visit Status: C HK (Check Out) true * Provider: Julio Chawla ([facility])MD Date: 0 07/13/2024 Generated for Printi ng/Faxing/eTransmitting on: 0 10/03/2024 09:41 AM EDT History and Physical Notes * HPI (History of Present Illness) Category Sub-Category Detail Notes Category Not es General Prostate cancer - had bx - repat bx neg - CAD - mi at 44 - R shoulder torn labrum Left knee torn meniscus Depression Screening PHQ-2 (2015 Edition) Little interest or pleasure in doing things?: Not at all Feeling down, depressed, or hopeless?: N ot at all Total Score: 0 Examination Category Sub-Category Detail Notes Category Not es Physical Exam GENERAL: well developed, well nourished, in no acute distress HEAD: normocephalic/atraum atic EYES: pupils equal, round and reactive to light, conjunctivae and sclerae normal EARS: no deformity or lesi on of external ear, canals and TM appear normal bilaterally, TM's intact, not inflamed with normal light reflex, hearing grossly normal to conversational speech NOSE: no deformity, discha rge, inflammation, or lesions MOUTH: mucous membranes moshe st, normal oropharynx and posterior pharynx without lesions or exudates, tongue normal, dentition normal NECK: neck supple, no mass es or palpable cervical nodes, trachea midline, thyroid without nodules, masses, tenderness, or enlargement CHEST: no chest wall deform ity, no chest wall tenderness LUNGS: normal respiratory e ffort and clear to auscultation, no wheezes, rales, or rhonchi, good air exchange CARDIO: regular rate and rhy thm, normal S1 and S2, nor murmur, rub, or gallop PULSES: normal capillary ref ill ABDOMEN: soft, non-distended, non-tender, no masses RECTAL: MUSCULOSKELETAL: no deformity or scol iosis noted, normal range of motion, joints normal, no erythema, edema, effusion, or ecchymosis EXTREMITY: no clubbing, cyanosi s, edema, or deformity with normal ROM in both upper and lower bilateral extremities NEUROLOGIC: grossly normal SKIN: no rashes, ulceratio ns, or suspicious lesions LYMPH NODES: no cervical adenopat hy, nodes normal MENTAL STATUS: alert and oriented x 3, normal mood and affect
--- OUTSIDE RECORDS SUMMARY | 2024-07-13 07:47 | XMS_ITS ---
Author Organization The [facility] in [place] Address [address] [place] [address] Care Team Providers Care Build Master Name Role Phone WayneAnshu celaya Primary Care Provider [phone] Reason For Referral Diagnosis 1 Colon polyps (K63.5) Referral Organization [facility] Referring Provider First Name Anshu Referring Provider Last Name [place] [facility] josué Referred Provider Stephon Gentile Referred Provider Specialty General Surg los Referral Priority Routine REASON FOR VISIT colonoscopy, polys Encounters Encounter Location Date Provider Diagnosis [facility] [address] [place] [address] 07/13/2024 Anshu Chawla Colon polyps K63.5 Assessments Encounter Date Diagnosis (ICD Code) Assessment Notes Treatment Notes Treatment Clinical Notes Section Notes 07/13/2024 Colon polyps (ICD-10 - K63.5) Plan Of Treatment Referrals Referral Date Details 07/13/2024 07/13/2024Stephon Progress Notes * Rob CASTRODOB:1965 (58 yo M)Acc No.[id number]:07/13/2024 Patient: Jim DEUTSCH Rob Henry :1965 A ge:58 Y S ex:Male Address:[address] [place] [address] [address], [place] [address] Subjective: * Chief Complaints: * C olonoscopy, polys * Medical History: * Surgical History: * Hospitalization/Major Diagno stic Procedure: * Medications: Objective: * Vitals: * Physical Examination: Assessment: * Assessment: 1. C caridad polyps - K63.5 (Primary) Plan: * Treatment: * Procedure Codes: * true * Date: Generated for Annmarie jerez/Brianne/Navjot on: 0 10/03/2024 09:42 AM EDT Consultation Request Notes Referral Date Referring Provider Referred Provider Not es 07/13/2024 Anshu Chawla Michael
--- OUTSIDE RECORDS SUMMARY | 2024-07-13 09:46 | XMS_ITS ---
Author Organization [facility] in [place] Address [address] [place] [address] Care Team Providers Care Steel Division Supervisor Name Role Phone Anshu Chawla Primary Care Provider REASON FOR VISIT colonoscopy Encounters Encounter Location Date Provider Diagnosis [place] [address] [place] [facility] [place] [address] 07/13/2024 Anshu Chawla Plan Of Treatment No Information Progress Notes * Rob CASTRODOB:1965 (58 yo M)Acc No.[id number]:07/13/2024 Patient: Jim Rob DEUTSCH :1965 A ge:58 Y S ex:Male Address:[address] [place] [address] [address], [place] [address] * true * Date: Generated for Annmarie jerez/Brianne/eTransmitting on: 0 10/03/2024 09:42 AM EDT
--- OUTSIDE RECORDS SUMMARY | 2024-10-03 09:42 | XMS_ITS | Clinical Summary ---
Author Organization [facility] Address [address] [place] [address] Care Team Providers Care Certified Professional Coder Name Role Phone Bladimir Chawla MD Primary Care Provider [phone] Allergies No known active allergies Medications lisinopril 5 MG tablet Take 1 tablet by mouth Daily Active losartan (Cozaar) 25 MG tablet Take 1 tablet by mouth Daily 01/06/2023 Active metoprolol tartrate (Lopressor) 25 MG tablet Take 1 tablet by mouth in the morning and 1 tablet before bedtime. Active ASPIRIN 81 MG chewable tablet 1 (one) time each day at the same time Active atorvastatin (Lipitor) 40 MG tablet Take 1 tablet by mouth Daily Active Multiple Vitamin (Multi-Vitamin) tablet Take 1 tablet by mouth in the morning. Active tadalafil (Cialis) 10 MG tablet TAKE 1 TABLET BY MOUTH 1 HOUR PRIOR TO SEXUAL ACTIVITY, NEEDED FOR ERECTILE DYSFUNCTION. DO NOT EXCEED 2 TABLETS IN 24 HOUR PERIOD. 06/19/2024 Active Active Problems No known active problems Encounters Date Type Department Care Team Description 07/10/2024 11:15 AM EDT Office Visit [facility] [address] [place] [address] Stewart Gill DO Superior glenoid labrum lesion of right shoulder, subsequent encounter 07/10/2024 Bamboo flowsheet [facility] [address] [place] [address] Stewart Gill DO 07/10/2024 Travel from Last 3 Months Social History Tobacco Use Types Packs/Day Years Used Date Smoking Tobacco: Never Smokeless Tobacco: Never Tobacco Cessation:Counseling Given: Not Answered Sex and Gender Information Value Date Recorded Sex Assigned at Male 12/30/2023 11:23 AM EDT Legal Sex Male 7:26 PM EDT Gender Identity Male 12/30/2023 11:23 AM EDT Sexual Orientation Not on file Last Filed Vital Signs Vital Sign Reading Time Taken Comments Blood Pressure - - Pulse - - Temperature - - Respiratory Rate - - Oxygen Saturation - - Inhaled Oxygen Concentration - - Weight 93 kg (205 lb) 07/10/2024 12:04 PM EDT Height 182.9 cm (6') 07/10/2024 12:04 PM EDT Body Mass Index 27.8 07/10/2024 12:04 PM EDT Plan of Treatment Health Maintenance Due Date Last Done Comments CT Colonography 1965 Colonoscopy 1965 Colorectal Cancer Screening 1965 FIT-DNA 1965 FIT 1965 FOBT 1965 Sigmoidoscopy 1965 Influenza Vaccine (#1) 2024 Procedures Procedure Name Priority Date/Time Associated Diagnosis Comments AR ARTHROCENTESIS ASPIR&/INJ MAJOR JT/BURSA W/US Routine 07/10/2024 12:13 PM EDT Superior glenoid labrum lesion of right shoulder, subsequent encounter AR ARTHROCENTESIS ASPIR&/INJ MAJOR JT/BURSA W/US Routine 07/10/2024 12:12 PM EDT Superior glenoid labrum lesion of right shoulder, subsequent encounter from Last 3 Months Results * AR ARTHROCENTESIS ASPIR&/INJ MAJOR JT/BURSA W/US (07/10/2024 12:13 PM EDT) Narrative Nara Varela ARRT - 07/10/2024 12:13 PM EDT GAB Ansari 07/10/2024 4:07 PM L Inj/Asp: R subacromial bursa on 07/10/2024 12:13 PM Indications: pain Details: 25 G needle, ultrasound-guided Medications: 1 mL betamethasone acetate-betamethasone sodium phosphate 6 (3-3) MG/ML Consent was given by the patient. us Stewart Fay Jairo DO IN CLINIC/BEDSIDE ORDERABLES Fi nal Result * AR ARTHROCENTESIS ASPIR&/INJ MAJOR JT/BURSA W/US (07/10/2024 12:12 PM EDT) Nara Rothman, ARRT - 07/10/2024 12:12 PM EDT Nara Varela, ARRT 07/10/2024 4:07 PM L Inj/Asp: R glenohumeral on 07/10/2024 12:12 PM Indications: pain Details: 25 G needle, ultrasound-guided Medications: 1 mL betamethasone acetate-betamethasone sodium phosphate 6 (3-3) MG/ML Consent was given by the patient. Stewart Gill DO IN CLINIC/BEDSIDE ORDERABLES Fi nal Result from Last 3 Months Insurance [facility] Care Teams Certified Professional Coder Relationship Specialty Start Date End Date Bladimir Chawla MD [address] [place] [id number] PCP - General Family Medicine 07/10/24
--- OUTSIDE RECORDS SUMMARY | 2024-10-03 09:42 | XMS_ITS | Clinical Summary ---
Author Organization [facility] Address [address] [place] [address], [address] [place] [address] Care Team Providers Care Electrical Sign Wirer Name Role Phone Unavailable Primary Care Provider Unavailabl e Social History Tobacco Use Types Packs/Day Years Used Date Smoking Tobacco: Never Assessed Sex and Gender Information Value Date Recorded Sex Assigned at Not on file Legal Sex Male 4:17 PM EST Gender Identity Not on file Sexual Orientation Not on file Plan of Treatment Not on file
--- OUTSIDE RECORDS SUMMARY | 2024-10-03 09:42 | XMS_ITS | Clinical Summary ---
Author Organization [facility] Address [address] [place] [address] Care Team Providers Care Lehr Stripper Name Role Phone Bladimir Chawla MD Primary Care Provider [phone] Allergies No known active allergies Medications aspirin 81 mg EC tablet Take 1 tablet every day by oral route. Active atorvastatin (Lipitor) 40 mg tabletIndications :Coronary artery disease due to lipid rich plaque TAKE 1 TABLET (40 MG) BY MOUTH IN THE MORNING. 90 tablet 3 4 12/30/19 25 Active nitroglycerin (Nitrostat) 0.4 mg SL tabletIndications :Coronary artery disease involving lyt[place] coronary artery of lytton heart without angina pectoris Place 1 tablet (0.4 mg) under the tongue every 5 (five) minutes if needed for chest pain (Place 1 tablet under your tongue every 5 mins x3 doses. If chest pain doesn't resolve, report to the ER.). 30 tablet 3 4 Active metoprolol tartrate (Lopressor) 25 mg tabletIndications :Palpitations TAKE 1 TABLET (25 MG) BY MOUTH IN THE MORNING AND AT BEDTIME. 180 tablet 3 4 02/24/20 25 Active losartan (Cozaar) 25 mg tabletIndications :Benign hypertensive heart disease without congestive heart failure Take 1 tablet (25 mg) by mouth in the morning. 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 Social History Tobacco Use Types Packs/Day Years Used Date Smoking Tobacco: Never Smokeless Tobacco: Never Tobacco Cessation:Counseling Given: Not Answered Alcohol Use Standard Drinks/Week Comments Not Currently 0 (1 standard drink = 0.6 oz pur e alcohol) [place] Safety & Environment Answer Date Rec orded Fear of Current or Ex-Partner Not on file Emotionally Abused Not on file 04/22/2023 Physically Abused Not on file 04/22/2023 Sexually Abused Not on file 04/22/2023 Physically or Sexually Abused Not on file Sex and Gender Information Value Date Recorded Sex Assigned at Not on file Legal Sex Male 10:45 PM EDT Gender Identity Not on file Sexual Orientation Not on file Last Filed Vital Signs Vital Sign Reading Time Taken Comments Blood Pressure 138/80 01/25/2024 2:00 PM EST Pulse 66 01/25/2024 2:00 PM EST Temperature - - Respiratory Rate 12 01/25/2024 2:00 PM EST Oxygen Saturation 97% 01/25/2024 2:00 PM EST Inhaled Oxygen Concentration - - Weight 90.7 kg (200 lb) 01/25/2024 2:00 PM EST Height 182.9 cm (6') 01/25/2024 2:00 PM EST Body Mass Index 27.12 01/25/2024 2:00 PM EST Plan of Treatment Health Maintenance Due Date Last Done Comments CT Colonography 1963 FIT-DNA 1963 FIT 1963 FOBT 1963 Medicare Annual Wellness (AWV) 1963 Sigmoidoscopy 1963 Depression Screening 1975 Pneumococcal Vaccine: Pediat rics (0 to 5 Years) and At-Risk Patients (6 to 64 Years) (1 of 2 - PCV) 12/18/1982 Adult Tetanus 12/18/1985 Zoster Vaccines (1 of 2) 12/18/2013 COVID-19 Vaccine (2 - 2023-2 5 season) 2023 07/02/2020 Influenza Vaccine (#1) 2024 Colonoscopy 04/15/2030 04/15/2020 Colorectal Cancer Screening 04/15/2030 HIB Vaccines Aged Out No longer eligi ble based on patient's age to complete this topic HPV Vaccines Aged Out No longer eligi ble based on patient's age to complete this topic IPV Vaccines Aged Out No longer eligi ble based on patient's age to complete this topic Meningococcal B Vaccine Aged Out No l onger eligible based on patient's age to complete this topic Meningococcal Vaccine Aged Out No fatoumata jean carlos eligible based on patient's age to complete this topic Rotavirus Vaccines Aged Out No longer eligible based on patient's age to complete this topic Insurance [employer] Care Teams Lehr Stripper Relationship Specialty Start Date End Date Bladimir Chawla MD [address] [facility] [address] [address] PCP - General 10/22/21
--- OUTSIDE RECORDS SUMMARY | 2024-10-03 09:42 | XMS_ITS | Patient Health Record ---
Author Organization [facility] [place] Address [address] [place] [address] Care Team Providers Care Telephone Clerk Telegraph Office Name Role Phone Anshu Chawla Primary Care Provider Allergies No Known Allergies Results Component Value Reference Range Notes CBC AUTO DIFF Reviewed date:02/03/2024 12:44:05 PM Interpretation: Performing Lab: Notes/Report: [facility] , White Blood Count 8.1 4.0-11.0 10 3/uL Red Blood Count 4.68 4.70-6.10 10 6/uL Hemoglobin 13.8 14.0-18.0 g/dL Hematocrit 41.0 42.0-54.0 % Mean Corpuscular Volume 87.6 80.0-94.0 fL Mean Corpuscular Hemoglobin 29.5 25.9-34.0 pg Mean Corpuscular HGB Conc 33.7 29.9-35.2 g/dL Red Cell Distribution Width 12.6 11.0-15.0 % Platelet Count 215 150-450 10 3/uL Mean Platelet Volume 10.3 9.5-13.5 fL Neutrophils Percent Auto 65.7 43.0-75.0 % Lymphocytes Percent Auto 15.9 20.5-60.0 % Monocytes Percent Auto 9.4 1.7-12.0 % Eosinophils Percent Auto 7.9 0.9-7.0 % Basophils Percent Auto 0.7 0.2-2.0 % Immature Granulocytes Pct Auto 0.4 0.0-0.5 % Neutrophils Absolute Auto 5.3 1.4-6.5 10 3/uL Lymphocytes Absolute Auto 1.3 1.2-3.8 10 3/uL Monocytes Absolute Auto 0.8 0.3-0.8 10 3/uL Eosinophils Absolute Auto 0.6 0.0-0.7 10 3/uL Basophils Absolute Auto 0.1 0.0-0.1 10 3/uL Immature Granulocytes Abs Auto 0.03 0.00-0.03 10 3/uL Performing Lab: see note ML - [facility] LB PROF 14(COMP METB) Reviewed date:02/03/2024 12:44:05 PM Interpretation: Performing Lab: Notes/Report: [facility] , Sodium 142 136-145 mmol/L Potassium 3.9 3.5-5.1 mmol/L Chloride 105 98-107 mmol/L Carbon Dioxide 29.1 21.0-32.0 mmol/L Anion Gap 11.8 Glucose 116 74-106 mg/dL Blood Urea Nitrogen 19.0 7.0-18.0 mg/dL Creatinine 0.90 0.70-1.30 mg/dL Estimated GFR ( Shelly >60 >=60 mL/min/1.73m 2 Estimated GFR (Non- Samira >60 >=60 mL/min/1.73m 2 BUN Creatinine Ratio 21.1 Calcium 9.2 8.5-10.1 mg/dL Bilirubin Total 0.8 0.2-1.0 mg/dL Aspartate Amino Transferase 23 15-37 U/L Alanine Aminotransferase 49 16-63 U/L Alkaline Phosphatase 43 46-116 U/L Total Protein 6.9 6.4-8.2 g/dL Albumin Level 3.8 3.4-5.0 g/dL Globulin 3.1 Albumin Globulin Ratio 1.2 Performing Lab: see note ML - [facility] LB LIPID PROFILE Reviewed date:02/03/2024 12:44:05 PM Interpretation: Performing Lab: Notes/Report: [facility] , Triglycerides 124 <=150 mg/dL Cholesterol 154 <=200 mg/dL HDL Cholesterol 50 40-60 mg/dL > or =60 mg/dl - LOW CARDIOVASCULAR RISK <40 mg/dl - HIGH CARDIOVASCULAR RISK LDL Cholesterol Calculated 79.2 160-189 mg/dl HIGH 130-159 mg/dl BORDERLINE HIGH >190 mg/dl VERY HIGH 100-129 mg/dl NEAR OR ABOVE OPTIMAL <100 mg/dl OPTIMAL VLDL CHOLESTEROL 24.8 Chol HDL Ratio 3.1 >11.0 HIGH RISK 3.3 - 4.4 LOW RISK 4.4 - 7.1 AVERAGE RISK 7.1 - 11.0 MODERATE RISK Performing Lab: see note ML - [facility] LB PSA Reviewed date:01/12/2024 07:33:25 PM Interpretation: Performing Lab: Notes/Report: [facility] , Prostate Specific Antigen Dx 2.80 <=4.00 ng/mL Performing Lab: see note ML - [facility] LB Reason For Referral Diagnosis 1 Colon polyps (K63.5) Referral Organization [facility] Referring Provider First Name Anshu Referring Provider Last Name Denton Referring Provider Speciality Family Med josué Referred Provider Stephon Gentile Referred Provider Specialty General Surg los Referral Priority Routine Medications Medication SIG (Take, Route, Frequency, Duration) Notes Start Date End Date Status Metoprolol Tartrate 25 MG TAKE 1 TABLET (25 MG) BY MOUTH IN THE MORNING AND AT BEDTIME. Oral for 90 Days Active Losartan Potassium 25 MG Oral for 90 Days Active Vitamin C 07/13/2024 Active Multi For Him 07/13/2024 Activ e Atorvastatin Calcium 40 MG TAKE 1 TABLET (40 MG) BY MOUTH IN THE MORNING. Oral for 90 Days Active Aspirin 81 81 MG 1 tablet Orally Once a day for 30 days 07/13/2024 Active Zinc 07/13/2024 Active Social History Tobacco Use: Social [...] Problem Status W/U Status Risk Notes Problem 564475278 Mixed hyperlipid emia (E78.2) Active confirmed Problem 18306175 Hypertensive hea rt disease without heart failure (I11.9) Active confirmed Problem 14916861 Atherosclerotic heart disease of [place] coronary artery without angina pectoris (I25.10) Active confirmed Problem 19455312 Palpitations (R00.2) Active confirmed Problem Hypertension (I10) Active confirmed Problem Well adult (202198035) Well adult (Z00.00) Active confirmed Problem Pre-surgery evaluation (405122027) Pre-op exam (Z01.818) Active confirmed Problem Hypercholesterolemia (08620011) Hypercholesterolemia (E78.00) Active confirmed Problem Acute non-ST segment elevation myocardial infarction (490093923) Acute ID, subendocardial (I21.4) Active confirmed Vital Signs Blood pressure diastolic 90 mm Hg 07/13/2024 Height 72 in 07/13/2024 Blood pressure systolic 160 mm Hg 07/13/2024 Weight 207.4 lbs 07/13/2024 BMI 28.13 kg/m2 07/13/2024 Encounters Encounter Location Date Provider Diagnosis [facility] [address] [place] [address] 07/13/2024 Anshu Hoy Well adult Z00.00 [facility] [address] [place] [address] 07/13/2024 Anshu Blacky Colon polyps K63.5 [facility] [address] [place] [address] 07/13/2024 Anshu Hoy Assessments Encounter Date Diagnosis (ICD Code) Assessment Notes Treatment Notes Treatment Clinical Notes Section Notes 07/13/2024 Well adult (ICD-10 - Z00.00) 07/13/2024 Colon polyps (ICD-10 - K63.5) Plan Of Treatment No Information Insurance Providers Payer Name Payer Address Payer Phone Subscriber Number Group Number Insured Name Patient Relationship to Insured Coverage Start Date Coverage End Date [facility] [address] [place] [id number] Rob Yates Self - patient is the insured Medical (General) History Medical History History ICD Code Hypercholesterolemia E78.00 Acute ID, subendocardial I21.4 Hypertension I10 Surgical History Surgery Date(Month/Year) Hydrocele Colonoscooy 2020 Cardiac Stent x3 Hernia Repair Rotator cuff- right
--- OUTSIDE RECORDS SUMMARY | 2024-10-03 09:42 | XMS_ITS | Encounter Summary ---
Author Organization [facility] Address [address] [place] [address] Care Team Providers Care Cycle Manager Name Role Phone Bladimir Chawla MD Primary Care Provider [phone] Reason for Visit * Reason Comments Med Refill Encounter Details Date Type Department Care Team (Late st Contact Info) Description 05/27/2022 Refill [facility] Cardiology [address] [place] [address] Erika Berry, BATCH UNIT TREATER [address] [place] [phone] Benign hypertensive heart disease without congestive heart failure Social History Tobacco Use Types Packs/Day Years Used Date Smoking Tobacco: Never Smokeless Tobacco: Never Alcohol Use Standard Drinks/Week Comments Not Currently 0 (1 standard drink = 0.6 oz pur e alcohol) Sex and Gender Information Value Date Recorded Sex Assigned at Not on file Legal Sex Male 10:45 PM EDT Gender Identity Not on file Sexual Orientation Not on file documented as of this encounter Plan of Treatment Not on file documented as of this encounter Visit Diagnoses Diagnosis Benign hypertensive heart disease without congestive heart failure Benign hypertensive heart disease without heart failure documented in this encounter Care Teams Cycle Manager Relationship Specialty Start Date End Date Bladimir Chawla MD [address] [facility] [address] [address] PCP - General 10/22/21 documented as of this encounter
== END 2024-10-03 09:40 | disposition home or self-care (01) ==
LOC: LAB 09:40
PROVIDERS: PCP Family Medicine; Visit Provider Urology
DX: C61 Malignant neoplasm of prostate (principal)
CPT/HCPCS: 36415; 84403

== ENCOUNTER 2025-02-21 09:35 | Outpatient (OUT) | payer OTHER, SELFPAY ==
--- OUTSIDE RECORDS SUMMARY | 2025-02-09 10:45 | XMS_ITS | Encounter Summary ---
Author Organization [facility] Address [address] [place] [address] Care Team Providers Care Clam Shovel Operator Name Role Phone Bladimir Chawla MD Primary Care Provider [phone] Reason for Referral * Imaging (Routine) - Pending ReviewSpecialtyDiagnoses / ProceduresReferred By ContactReferred To ContactCardiology Diagnoses Coronary artery disease involving lower [place] coronary artery of [place] heart without angina pectoris Primary hypertension Status post insertion of drug eluting coronary artery stent Procedures Transthoracic echo (TTE) complete Marko Gomes MD [address] [place] [address] Phone: tel: fax: Referral IDStatusReasonStart DateExpiration DateVisits RequestedVisits [id number] Review Perform Procedure Encounter Details DateTypeDepartmentCare Team (Latest Contact Info)Pvesdwxbilb18/12/2025 10:45 AM ESTOffice Visit [place] [address] [place] [address] Marko Gomes MD [address] [place] [address] Coronary artery disease involving lower [place] coronary artery of lower [place] heart without angina pectoris (Primary Dx); Mixed hyperlipidemia; Primary hypertension; Status post insertion of drug eluting coronary artery stent Social History Tobacco UseTypesPacks/DayYears UsedDateSmoking Tobacco: NeverSmokeless Tobacco: NeverAlcohol UseStandard Drinks/WeekCommentsNot Currently0 (1 standard drink = 0.6 oz pure alcohol)[place] Safety & EnvironmentAnswerDate RecordedFear of Current or Ex-PartnerNot on file04/22/2023Emotionally AbusedNot on file04/22/2023hysically AbusedNot on file04/22/2023Sexually AbusedNot on file04/22/2023hysically or Sexually AbusedNot on file04/22/2023CommentsUnknownSex and Gender InformationValueDate RecordedSex Assigned at IgsguPqxeqe70/12/2025 10:45 AM EST Legal MopNask4408/27/2021 10:45 PM EDTGender SbihrnnrWyxlgq34/12/2025 10:45 AM EST Sexual OrientationHeterosexual or Mjebetav06/12/2025 10:45 AM ESTdocumented as of this encounter Last Filed Vital Signs Vital SignReadingTime TakenCommentsBlood Igrfeavm593/7702/09/2025 11:00 AM EST Lgsgd353502/09/2025 11:00 AM ESTTemperature--Respiratory Rate--Oxygen Saturation 94%02/09/2025 11:00 AM ESTInhaled Oxygen Concentration--Wrvajy54.8 kg (209 lb) 02/09/2025 11:00 AM UPGQjtdjx494.9 cm (6')02/09/2025 11:00 AM ESTBody Mass Index 28.35104/12/2024 11:00 AM ESTdocumented in this encounter Progress Notes * Marko Gomes MD - 02/09/2025 10:45 AM EST Images from the original note were not included. [place] [facility] - [facility] Subjective Rob Yates is a 59 y.o. year old adult patient being seen for 1 year. Patient denies chest pain,SOB/DIAZ, leg swelling/pain, palpitations/racing racing. Patient complains of increased fatigue. Patient would like to talk about medications. Patient Active Problem List Diagnosis Coronary atherosclerosis Dizziness and giddiness Essential hypertension Hyperlipidemia Old myocardial infarction Acute non-ST segment elevation myocardial infarction (CMS/HCC) BPH with urinary obstruction Elevated PSA Family history of colon cancer requiring screening colonoscopy Hydrocele Hypertensive heart disease without congestive heart failure Low energy Nocturia Palpitations Post-void dribbling Pre-op exam Prostate cancer (CMS/HCC) Urinary frequency Weak urinary stream Family History Family history unknown: Yes Social History Tobacco Use Smoking status: Never Smokeless tobacco: Never Substance Use Topics Alcohol use: Not Currently Drug use: Never HPI Rob is here for follow up on coronary artery disease s/p stenting of the LAD, Cx [on 12/26/2010 with two 3.5 mm Cypher stents to the LAD, one 3.5 mm Cypher stent to the circumflex], and RCA (November2010, Promus stent 3.5 x 23 mm) and hypertension and hyperlipidemia. He developed cough on dionte inhibitor and it was changed to losartan. He was previously diagnosed with prostate cancer and is being monitored for that. He has been doing well with no symptoms of chest pain or shortness of breath. No dizziness. He exercises with no symptoms. He plays basketball with no issues. he only reports occasional fatigue. Review of Systems Constitutional: Positive for malaise/fatigue. Musculoskeletal: Positive for back pain. All other systems reviewed and are negative. Objective Visit Vitals BP 128/77 (BP Location: Left arm, Patient Position: Sitting) Pulse 63 Ht 1.829 m (6') Wt 94.8 kg (209 lb) SpO2 94% BMI 28.35 kg/m?? Smoking Status Never BSA 2.19 m?? Physical Exam Constitutional: Appearance: She is well-developed. She is not ill-appearing. HENT: Head: Normocephalic and [...] General: No focal deficit present. Mental Status: She is alert and oriented to person, place, and time. Psychiatric: Mood and Affect: Mood normal. Behavior: Behavior is cooperative. Judgment: Judgment normal. Allergies No Known Allergies Medications Current Outpatient Medications: aspirin 81 mg EC tablet, Take 1 tablet every day by oral route., Disp: , Rfl: atorvastatin (Lipitor) 40 mg tablet, Take 1 tablet (40 mg) by mouth at bedtime., Disp: 90 tablet, Rfl: 1 losartan (Cozaar) 25 mg tablet, Take 1 tablet (25 mg) by mouth in the morning., Disp: 90 tablet, Rfl: 3 metoprolol tartrate (Lopressor) 25 mg tablet, TAKE 1 TABLET (25 MG) BY MOUTH IN THE MORNING AND AT BEDTIME., Disp: 180 tablet, Rfl: 3 nitroglycerin (Nitrostat) 0.4 mg SL tablet, Place 1 tablet (0.4 mg) under the tongue every 5 (five)minutes if needed for chest pain (Place 1 tablet under your tongue every 5 mins x3 doses. If chest pain doesn't resolve, report to the ER.)., Disp: 30 tablet, Rfl: 3 tadalafil (Cialis) 10 mg tablet, Take 10 mg by mouth if needed each day., Disp: , Rfl: Recent Labs Blood testing 02/03/2024: Hemoglobin 13.8, platelets 215, potassium 3.9, BUN 19, creatinine 0.9, eGFR more than 60, LFTs normal, triglycerides 124, cholesterol 154, HDL 50, LDL 79. Blood testing 12/31/2022: Hgb 13.6, plt 199, K 3.8, Na 136, BUN 20, Cr 0.91, eGFR >60 Lipids 01/30/2022: Chol 144, HDL 45, trig 155, LDL [...] for this visit: Coronary artery disease involving lower [place] coronary artery of lower [place] heart without angina pectoris - CBC and differential; Future - Comprehensive metabolic panel; Future - Lipid panel; Future - Transthoracic echo (TTE) complete; Future Mixed hyperlipidemia - Lipid panel; Future Primary hypertension - CBC and differential; Future - Comprehensive metabolic panel; Future - Transthoracic echo (TTE) complete; Future Status post insertion of drug eluting coronary artery stent - Transthoracic echo (TTE) complete; Future I think that he is doing well with no evidence of active cardiac problems. His blood pressure is mildly elevated with a systolic of 128. I asked him to continue to monitor. Itold him that normal blood pressure is less than 120/80. I explained to him that if the blood pressure is higher than that we need to adjust his antihypertensives. His prior LDL was 79 in January 2024. I explained to him that the target LDL should be less than that. I am going to check CBC, CMP and lipids and adjust therapy as needed. I am going to check an echocardiogram since he has not had any assessment of his cardiac function in over 5 years and given his prior history of three-vessel drug-eluting stents. Otherwise I will plan on seeing him in follow-up in 1 year. Follow up in about 1 year (around 02/09/2026). documented in this encounter Plan of Treatment NameTypePriorityAssociated DiagnosesOrder ScheduleCBC and differentialLabRoutine Coronary artery disease involving lower [place] coronary artery of lower [place] heart without angina pectoris Primary hypertension Expected: 02/09/2025 (Approximate), Expires: 02/09/2026omprehensive metabolic panelLabRoutine Coronary artery disease involving lower [place] coronary artery of lower [place] heart without angina pectoris Primary hypertension Expected: 02/09/2025 (Approximate), Expires: 02/09/2026Lipid panelLabRoutine Coronary artery disease involving lower [place] coronary artery of lower [place] heart without angina pectoris Mixed hyperlipidemia Expected: 02/09/2025 (Approximate), Expires: 02/09/2026Transthoracic echo (TTE) completeEchocardiographyRoutine Coronary artery disease involving lower [place] coronary artery of lower [place] heart without angina pectoris Primary hypertension Status post insertion of drug eluting coronary artery stent Expected: 02/09/2025 (Approximate), Expires: 02/09/2027documented as of this encounter Visit Diagnoses Diagnosis Coronary artery disease involving lower [place] coronary artery of lower [place] heart without angina pectoris- Primary Mixed hyperlipidemia Primary hypertension Unspecified essential hypertension Status post insertion of drug eluting coronary artery stent documented in this encounter Care Teams Team MemberRelationshipSpecialtyStart DateEnd Date Bladimir Chawla MD [address] [place] [address] PCP - General10/22/21documented as of this encounter
--- OUTSIDE RECORDS SUMMARY | 2025-02-21 09:39 | XMS_ITS | Encounter Summary ---
Author Organization [facility] Address [address] [place] [address] Care Team Providers Care Gas Pumping Station Supervisor Name Role Phone Bladimir Chawla MD Primary Care Provider [phone] Reason for Visit * ReasonCommentsMed Refill Encounter Details DateTypeDepartmentCare Team (Latest Contact Info)Gsdqrlkuqio34/18/2025Refill [facility] [address] [place] [address] Erika Berry, INSIDE POLISHER [address] [place] [address] Palpitations; Benign hypertensive heart disease without congestive heart failure Social History Tobacco UseTypesPacks/DayYears UsedDateSmoking Tobacco: NeverSmokeless Tobacco: NeverAlcohol UseStandard Drinks/WeekCommentsNot Currently0 (1 standard drink = 0.6 oz pure alcohol)[place] Safety & EnvironmentAnswerDate RecordedFear of Current or Ex-PartnerNot on file04/22/2023Emotionally AbusedNot on file04/22/2023hysically AbusedNot on file04/22/2023Sexually AbusedNot on file04/22/2023hysically or Sexually AbusedNot on file04/22/2023CommentsUnknownSex and Gender InformationValueDate RecordedSex Assigned at ZhyufScmjtz04/12/2025 10:45 AM EST Legal LkzBmsb5908/27/2021 10:45 PM EDTGender CfafgpkrQlukol16/12/2025 10:45 AM EST Sexual OrientationHeterosexual or Trrkxxcx94/12/2025 10:45 AM ESTdocumented as of this encounter Plan of Treatment Not on file documented as of this encounter Visit Diagnoses Diagnosis Palpitations Benign hypertensive heart disease without congestive heart failure Benign hypertensive heart disease without heart failure documented in this encounter Care Teams Team MemberRelationshipSpecialtyStart DateEnd Date Bladimir Chawla MD [address] [place] [id number] PCP - General10/22/21documented as of this encounter
--- OUTSIDE RECORDS SUMMARY | 2025-02-21 09:39 | XMS_ITS | Clinical Summary ---
Author Organization [employer] [facility] Address [address] [place] [address] Care Team Providers Care Orchestra Leader Name Role Phone Bladimir Chawla MD Primary Care Provider [phone] Allergies No known active allergies Medications MedicationSigDispense QuantityRefillsLast FilledStart DateEnd DateStatus atorvastatin (LIPITOR) 40 MG tablet 10/21/2017Active metoprolol (LOPRESSOR) 50 MG tablet 10/21/2017Active multivitamin (multivitamin) tab Take 1 tablet by mouth daily.Active Family History Medical HistoryRelationCommentsCancerFatherHeart diseaseFatherRelationStatus CommentsFatherDeceasedMotherDeceased Social History Tobacco UseTypesPacks/DayYears UsedDateSmoking Tobacco: NeverSmokeless Tobacco: NeverSex and Gender InformationValueDate RecordedSex Assigned at BirthNot on fileLegal AxwLhha38/12/2018 11:34 AM EDTGender IdentityNot on fileSexual OrientationNot on file Last Filed Vital Signs Vital SignReadingTime TakenCommentsBlood Rvuvnlmm579/9210 9:22 AM PDT Leduy755612/10/2017 9:22 AM VDSDrrftmeujua08.4 ??C (99.4 ??F)12/10/2017 9:22 AM PDTRespiratory Dwok9296 9:22 AM PDTOxygen Ulpbpssgol28%12/10/2017 9:22 AM PDTInhaled Oxygen Concentration--Jedwic57.9 kg (185 lb)12/10/2017 9:22 AM PDT Height--Body Mass Index-- Plan of Treatment Not on file Medical Devices Not on file Insurance [place] EMILY [id number] Care Teams Team MemberRelationshipSpecialtyStart DateEnd Date Bladimir Chawla MD [address] [place] [address] [facility] - [facility] Erfhzhtm81/12/18
--- OUTSIDE RECORDS SUMMARY | 2025-02-21 09:39 | XMS_ITS | Clinical Summary ---
Author Organization [facility] Address [address] [place] [address] Care Team Providers Care Cement Finisher Helper Name Role Phone Bladimir Chawla MD Primary Care Provider [phone] Allergies No known active allergies Medications MedicationSigDispense QuantityRefillsLast FilledStart DateEnd DateStatus aspirin 81 mg EC tablet Take 1 tablet every day by oral route.Active nitroglycerin (Nitrostat) 0.4 mg SL tablet Indications:Coronary artery disease involving [place] coronary artery of [place] heart without angina pectorisPlace 1 tablet (0.4 mg) under the tongue every 5 (five) minutes if needed for chest pain (Place 1 tablet under your tongue every 5 mins x3 doses. If chest pain doesn't resolve, report to the ER.). 30 tablet 4Active atorvastatin (Lipitor) 40 mg tablet Indications:Coronary artery disease due to lipid rich plaqueTake 1 tablet (40 mg) by mouth at bedtime. 90 tablet /ctive tadalafil (Cialis) 10 mg tablet Take 10 mg by mouth if needed each day.Active metoprolol tartrate (Lopressor) 25 mg tablet Indications:PalpitationsTAKE 1 TABLET (25 MG) BY MOUTH IN THE MORNING AND AT BEDTIME. 180 tablet /ctive losartan (Cozaar) 25 mg tablet Indications:Benign hypertensive heart disease without congestive heart failure TAKE 1 TABLET (25 MG) BY MOUTH IN THE MORNING. 90 tablet /6Active metoprolol tartrate (Lopressor) 25 mg tablet Indications:PalpitationsTAKE 1 TABLET (25 MG) BY MOUTH IN THE MORNING AND AT BEDTIME. 180 tablet /Discontinued losartan (Cozaar) 25 mg tablet Indications:Benign hypertensive heart disease without congestive heart failure Take 1 tablet (25 mg) by mouth in the morning. 90 tablet Discontinued Active Problems ProblemNoted DateDiagnosed DateAcute non-ST segment elevation myocardial kcfsxyaacq60/12/2025PH with urinary ehxjgebnmuc11/12/2025Elevated PSA02/09/2025 Family history of colon cancer requiring screening ihmkhunjsle90/12/2025 Pugqlteyr58/12/2025Hypertensive heart disease without congestive heart failure 02/09/2025Low urytth4502/09/20251083Sufmpbpl02/12/8690Rwdkgupesmmk35/12/2025Post-void keabcepfj29/12/2025Pre-op exam02/09/2025Prostate dvkzav3202/09/2025Urinary bjwghetag03/12/2025Weak urinary zdcmau1602/09/2025Dizziness and giddiness 07/31/20118037Zryiklbdlyuemj68/01/2012Coronary bplsznfigxnvggi48/30/2012Essential uylzjvbmehai55/30/2012Old myocardial xkesvafpwm36/30/2012 Encounters DateTypeDepartmentCare SoryGdosymkwmhr28/18/[address]25Ref[address] [phone] Erika Berry CNP Palpitations; Benign hypertensive heart disease without congestive heart qfegbhy0102/09/2025 10:45 AM ESTOffice Visit [address] [phone] Marko Gomes MD Coronary artery disease involving [place] coronary artery of [place] heart without angina pectoris (Primary Dx); Mixed hyperlipidemia; Primary hypertension; Status post insertion of drug eluting coronary artery stent12/18/[facility] [address] [place] [phone] Marko Gomes MD Coronary artery disease due to lipid rich plaquefrom Last 3 Months Family History RelationNameStatusCommentsFatherDeceasedMotherDeceased Social History Tobacco UseTypesPacks/DayYears UsedDateSmoking Tobacco: NeverSmokeless Tobacco: Never Tobacco Cessation:Counseling Given: Not Answered Alcohol UseStandard Drinks/WeekCommentsNot Currently0 (1 standard drink = 0.6 oz pure alcohol)UT Safety & EnvironmentAnswerDate RecordedFear of Current or Ex-PartnerNot on file04/22/2023Emotionally AbusedNot on file04/22/2023hysically AbusedNot on file04/22/2023Sexually AbusedNot on file04/22/2023hysically or Sexually AbusedNot on file04/22/2023CommentsUnknownSex and Gender InformationValueDate RecordedSex Assigned at NngwvPhiiqd66/12/2025 10:45 AM EST Legal HnjGbpj8908/27/2021 10:45 PM EDTGender ZzwacjejCbyumy26/12/2025 10:45 AM EST Sexual OrientationHeterosexual or Nrneiruq44/12/2025 10:45 AM EST Last Filed Vital Signs Vital SignReadingTime TakenCommentsBlood Ffdsbwnm478/7702/09/2025 11:00 AM EST Zzypc583402/09/2025 11:00 AM ESTTemperature--Respiratory Agyq217403/26/2023 2:00 PM ESTOxygen Jhbnlbkhif17%02/09/2025 11:00 AM ESTInhaled Oxygen Concentration-- Wakfzx53.8 kg (209 lb)02/09/2025 11:00 AM THRPwclnm101.9 cm (6')02/09/2025 11:00 AM ESTBody Mass Index28.35104/12/2024 11:00 AM EST Plan of Treatment Health MaintenanceDue DateLast DoneCommentsCT Atvlptpqqtzj94/20/1964FIT-DNA 1963FIT1963FOBT1963Medicare Annual Wellness (AWV)1963 Mnzwrtbnqxcly17/20/1964Depression Mteagptqn83/20/1976Pneumococcal Vaccine: Pediatrics (0 to 5 Years) and At-Risk Patients (6 to 64 Years) (1 of 2 - PCV) 12/18/1982Pap Smear12/18/1984Adult Rliwvuq9712/18/1985Cervical Cancer Screening 12/18/1993HPV/Zaslhc6912/18/19935689Gldiljcyy40/20/2004Zoster Vaccines (1 of 2) 12/18/2013COVID-19 Vaccine (2 - season)/05/2020Influenza Vaccine (#1)10/30/20246453Gixvaelnelq32/15/203102/olorectal Cancer Screening 04/15/2030HIB VaccinesAged OutNo longer eligible based on patient's age to complete this topicHPV VaccinesAged OutNo longer eligible based on patient's age to complete this topicIPV VaccinesAged OutNo longer eligible based on patient's age to complete this topicMeningococcal B VaccineAged OutNo longer eligible based on patient's age to complete this topicMeningococcal VaccineAged OutNo longer eligible based on patient's age to complete this topicRotavirus Vaccines Aged OutNo longer eligible based on patient's age to complete this topic Insurance Care Teams Team MemberRelationshipSpecialtyStart DateEnd Date Bladimir Chawla MD [address] [facility] [address] [place] [id number] [facility]10/22/21
--- OUTSIDE RECORDS SUMMARY | 2025-02-21 09:40 | XMS_ITS | Clinical Summary ---
Author Organization [facility] Address [address] [place] [address] Care Team Providers Care Asset Specialist Name Role Phone Bladimir Chawla MD Primary Care Provider [phone] Allergies No known active allergies Medications MedicationSigDispense QuantityRefillsLast FilledStart DateEnd DateStatus lisinopril 5 MG tablet Take 1 tablet by mouth DailyActive losartan (Cozaar) 25 MG tablet Take 1 tablet by mouth Daily01/06/2023ctive metoprolol tartrate (Lopressor) 25 MG tablet Take 1 tablet by mouth in the morning and 1 tablet before bedtime.Active ASPIRIN 81 MG chewable tablet 1 (one) time each day at the same timeActive atorvastatin (Lipitor) 40 MG tablet Take 1 tablet by mouth DailyActive Multiple Vitamin (Multi-Vitamin) tablet Take 1 tablet by mouth in the morning.Active tadalafil (Cialis) 10 MG tablet TAKE 1 TABLET BY MOUTH 1 HOUR PRIOR TO SEXUAL ACTIVITY, NEEDED FOR ERECTILE DYSFUNCTION. DO NOT EXCEED 2 TABLETS IN 24 HOUR PERIOD.5Active Active Problems No known active problems Social History Tobacco UseTypesPacks/DayYears UsedDateSmoking Tobacco: NeverSmokeless Tobacco: Never Tobacco Cessation:Counseling Given: Not Answered Sex and Gender InformationValueDate RecordedSex Assigned at LsdxjBmfi24/31/2024 11:23 AM EDTLegal VmbMizc9805/13/2022 7:26 PM EDTGender XzphqxfkVbpt02/31/2024 11:23 AM EDTSexual OrientationNot on file Last Filed Vital Signs Vital SignReadingTime TakenCommentsBlood Pressure--Pulse--Temperature-- Respiratory Rate--Oxygen Saturation--Inhaled Oxygen Concentration--Djzvcv28 kg (205 lb)07/10/2024 12:04 PM MVHQtdjar118.9 cm (6')07/10/2024 12:04 PM EDTBody Mass Index27.8007/10/2024 12:04 PM EDT Plan of Treatment Not on file Insurance Care Teams Team MemberRelationshipSpecialtyStart Date Bladimir Chawla MD [address] [place] [address] PCP - GeneralFamily Medicine07/10/24
--- OUTSIDE RECORDS SUMMARY | 2025-02-21 09:40 | XMS_ITS | Clinical Summary ---
Author Organization [facility] Address [address] [place] [address], [address] [place] [address] Care Team Providers Care Chart Snatcher Name Role Phone Unavailable Primary Care Provider Unavailabl e Social History Tobacco UseTypesPacks/DayYears UsedDateSmoking Tobacco: Never AssessedSex and Gender InformationValueDate RecordedSex Assigned at BirthNot on fileLegal Sex Male04/10/2012 4:17 PM ESTGender IdentityNot on fileSexual OrientationNot on file Plan of Treatment Not on file
--- OUTSIDE RECORDS SUMMARY | 2025-02-21 09:40 | XMS_ITS | Patient Health Record ---
Author Organization [facility] [place] Address [address] [place] [address] Care Team Providers Care Physiology Teacher Name Role Phone Anshu Chawla Primary Care Provider Allergies No Known Allergies Results Component Value Reference Range Notes Testosterone Reviewed date:10/04/2024 08:36:05 AM Interpretation: Performing Lab: Notes/Report: [facility] , Testosterone 339 264-916 ng/dL old. be Robin.al. JCEM 2017,102;7207-8676. PMID: Adult male reference interval is based on a population of healthy nonobese males (BMI <30) between 19 and 39 years Performed at: [facility] Right Of Way Buyer: Giovanni Ovalle PhD, Phone: [phone] [address] [place] [phone]. Performing Lab: see note - [facility] Reason For Referral Diagnosis 1 Colon polyps (K63.5) Referral Organization [facility] Referring Provider First Name Anshu Referring Provider Last Name [place] Referring Provider Speciality Family Med josué Referred Provider Stephon Gentile Referred Provider Specialty General Surg los Referral Priority Routine Medications Medication SIG (Take, Route, Frequency, Duration) Notes Start Date End Date Status Metoprolol Tartrate 25 MG TAKE 1 TABLET (25 MG) BY MOUTH IN THE MORNING AND AT BEDTIME. Oral; Duration: 90 Days ActiveLosartan Potassium 25 MGOral; Duration: 90 DaysActiveVitamin C007/13/2024 ActiveMulti For Him5ActiveAtorvastatin Calcium 40 MGTAKE 1 TABLET (40 MG) BY MOUTH IN THE MORNING. Oral; Duration: 90 DaysActiveAspirin 81 81 MG1 tablet Orally Once a day; Duration: 30 days4227CwumugLtlr39/15/2025Active Social History Tobacco Use: Social History Observation Description Date Details (start date - stop date) Never Smoker NA - NA Tobacco Control (Standard) Question Answer Notes Tobacco use: Nonsmoker AUDIT-C (Standard) Question Answer Notes Did you have a drink containing alcohol in the p ast year? Yes How often did you have a drink containing alcohol in the past year?Never (0 point)How many drinks did you have on a typical day when you were drinking in the past year?1 or 2 drinks (0 point)How often did you have six or more drinks on one occasion in the past year?2 to 4 times a month (2 points)Points2 InterpretationNegative Problems Problem Type SNOMED Code ICD Code Onset Dates Problem Status W/U Status Risk Notes Problem Mixed hyperlipidemia (141050744) Mixed hy perlipidemia (E78.2) ActiveconfirmedProblemHypertensive heart disease without congestive heart failure (57268390)Hypertensive heart disease without heart failure (I11.9)Active confirmedProblemAtherosclerotic heart disease of [place] coronary artery without angina pectoris (529943654495336)Atherosclerotic heart disease of [place] coronary artery without angina pectoris (I25.10)ActiveconfirmedProblem Palpitations (09909214)Palpitations (R00.2)ActiveconfirmedProblemHypertension (26537276)Hypertension (I10)ActiveconfirmedProblemWell adult (367447227)Well adult (Z00.00)ActiveconfirmedProblemPre-surgery evaluation (184691477)Pre-op exam (Z01.818)ActiveconfirmedProblemHypercholesterolemia (36422241) Hypercholesterolemia (E78.00)ActiveconfirmedProblemAcute non-ST segment elevation myocardial infarction (379377032)Acute CO, subendocardial (I21.4) Activeconfirmed Vital Signs Blood pressure diastolic 90 mm Hg 07/13/2024 Vfdpaz76 in07/13/2024lood pressure sqopsbau425 mm Hg07/13/20240912Owfspt604.4 lbs 07/13/2024BMI28.13 kg/m207/13/2024 Encounters Encounter Location Date Provider Diagnosis [facility] [address] [place] [address] 07/13/2024 Anshu Chawla Well adult Z00.00 [facility] [address] [place] [address] 07/13/2024 Anshu Chawla Colon polyps K63.5 [facility] [address] [place] [address] 07/13/2024 Anshu Chawla Assessments Encounter Date Diagnosis (ICD Code) Assessment Notes Treatment Notes Treatment Clinical Notes Section Notes 07/13/2024 Well adult (ICD-10 - Z00.00) 07/13/2024olon polyps (ICD-10 - K63.5) Plan Of Treatment No Information Insurance Providers Payer Name Payer Address Payer Phone Subscriber Number Group Number Insured Name Patient Relationship to Insured Coverage Start Date Coverage End Date [facility] [address] [place], [place] [id number] [phone] [id number] Chandler Yates - patient is the insured Medical (General) History Medical History History ICD Code Hypercholesterolemia E78.00 Acute CO, subendocardial I21.4 Hypertension I10 Surgical History Surgery Date(Month/Year) Rotator cuff- right Hernia RepairCardiac Stent z6Tpxrzspzvlg3059Fkmfqahux
[2025-02-21 09:54] LABS: Hematocrit 42.7 % (42.0-54.0); Hemoglobin 14.2 g/dL (14.0-18.0); Immature Granulocytes Abs Auto 0.03 10^3/uL (0.00-0.03); Immature Granulocytes Pct Auto 0.4 % (0.0-0.5); Lymphocytes Absolute Auto 1.3 10^3/uL (1.2-3.8); Mean Corpuscular HGB Conc 33.3 g/dL (29.9-35.2); Mean Corpuscular Hemoglobin 29.0 pg (25.9-34.0); Mean Corpuscular Volume 87.1 fL (80.0-94.0); Platelet Count 222 10^3/uL (150-450); Red Blood Count 4.90 10^6/uL (4.70-6.10); White Blood Count 7.8 10^3/uL (4.0-11.0)
[2025-02-21 10:23] LABS: Alanine Aminotransferase 41 U/L (16-63); Albumin Globulin Ratio 1.3; Albumin Level 3.8 g/dL (3.4-5.0); Alkaline Phosphatase 38 U/L (46-116); Anion Gap 9.2; Aspartate Amino Transferase 19 U/L (15-37); Blood Urea Nitrogen 18.0 mg/dL (7.0-18.0); Calcium 8.9 mg/dL (8.5-10.1); Carbon Dioxide 30.9 mmol/L (21.0-32.0); Chloride 104 mmol/L (98-107); Cholesterol 155 mg/dL (<=200); Estimated GFR (African America >60 (>=60 mL/min/1.73m^2); Estimated GFR (Non-African Ame >60 (>=60 mL/min/1.73m^2); Globulin 3.0 g/dL; Glucose 118 mg/dL (74-106); HDL Cholesterol 48 mg/dL (40-60); Potassium 4.1 mmol/L (3.5-5.1); Sodium 140 mmol/L (136-145); Total Protein 6.8 g/dL (6.4-8.2); Triglycerides 133 mg/dL (<=150); VLDL CHOLESTEROL 26.6 mg/dL
== END 2025-02-21 09:36 | disposition home or self-care (01) ==
LOC: LAB 09:36
PROVIDERS: PCP Family Medicine; Visit Provider Internal Medicine Interventional Cardiology
DX: I25.10 Atherosclerotic heart disease of native coronary artery without angina pectoris (principal); E78.2 Mixed hyperlipidemia; I10 Essential (primary) hypertension
CPT/HCPCS: 36415; 80053; 80061; 85025